=== PATIENT | female | born 1940 | race Two or more races ===

== ENCOUNTER 2016-10-08 19:20 | Emergency (ER) | payer OTHER ==
[2016-10-08 19:37] VITALS: BMI 20.7
--- NOTE | 2016-10-08 20:08 | PDOC ---
History of Present Illness - History of Present Illness Initial Comments: 10/08/16 22:58 Patient is a 76 year old female, accompanied by daughter, with significant medical hx of dementia, HTN, HLD, seizures, dementia and hypothyroidism who is presenting to the ED with left shoulder pain for one hour. The patient was at rest when her pain began; she denies any recent trauma or falls. Her pain is localized to the deltoid area with no radiation down the left arm, chest, to the back or neck. The patient reports her pain worsens with movement and there is mild pain while at rest. She did not take any medication for pain. The patient also endorses a mild gradual onset headache. Denies any shortness of breath, chest pain, back pain, neck pain, dizziness, nausea, vomiting, diarrhea, fever or chills, numbness tingling, weakness. Surgical Hx: thyroidectomy, D&C hysterectomy PMD: Stephen Wylie MD <Alayna Sepulveda - Last Filed: 10/08/16 22:58> <Joo Mina - Last Filed: 10/09/16 02:01> - General Chief Complaint: Edema Stated Complaint: RT HAND LUMP/ABCESS Time Seen by Provider: 10/08/16 19:44 Past History <Alayna Sepulveda - Last Filed: 10/08/16 22:58> - Past Medical History Anemia: Yes Asthma: No Cancer: No Cardiac Disorders: No CVA: No COPD: No CHF: No Dementia: Yes Diabetes: No GI Disorders: Yes (reflux) Disorders: No HTN: Yes Hypercholesterolemia: Yes Liver Disease: No Psychiatric Problems: Yes (depression) Seizures: Yes (epilepsy, last in december) Thyroid Disease: Yes (HYPOTHYROID) - Surgical History Abdominal Surgery: No Appendectomy: No Cardiac Surgery: No Cholecystectomy: No Lung Surgery: No Neurologic Surgery: No Orthopedic Surgery: No - Reproductive History Cervical CA: No Dysfunctional Uterine Bleeding: No Ectopic : No Endometrial CA: No Polycystic Ovaries: No Tubal Ligation: No - Immunization History Immunization Up to Date: Yes - Psycho/Social/Smoking Cessation Hx Anxiety: Yes Suicidal Ideation: No Smoking Status: No Smoking History: Never smoked Have you smoked in the past 12 months: No Number of Cigarettes Smoked Daily: 0 Hx Alcohol Use: No Drug/Substance Use Hx: No Substance Use Type: None Hx Substance Use Treatment: No <Joo Mina - Last Filed: 10/09/16 02:01> - Past Medical History Allergies/Adverse Reactions: Allergies Allergy/AdvReac Type Severity Reaction Status Date / Time hydromorphone HCl Allergy Mild Itching Verified 10/08/16 19:33 [From Dilaudid] Home Medications: Ambulatory Orders Alprazolam [Xanax] 0.25 mg PO DAILY 10/09/16 Amlodipine Besylate/Benazepril [Lotrel 5-10 mg Capsule] 1 each PO DAILY Atorvastatin Calcium 20 mg PO DAILY 10/09/16 Donepezil HCl [Aricept -] 5 mg PO DAILY 10/09/16 Gabapentin [Neurontin] 100 mg PO TID 10/09/16 Levetiracetam [Keppra -] 750 mg PO BID 10/09/16 Levothyroxine Sodium [Unithroid] 50 mcg PO DAILY 10/09/16 Meloxicam [Mobic] 15 mg PO DAILY 10/09/16 Phenytoin 50 mg PO DAILY 10/09/16 Review of Systems - Review of Systems Comments:: 10/08/16 22:59 CONSTITUTIONAL: No reported: Fever, Chills, Diaphoresis, Generalized Weakness, Malaise, Loss of Appetite HEENT: No reported: Rhinorrhea, Nasal Congestion, Throat Pain, Throat Swelling, Difficulty Swallowing, Mouth Swelling, Ear Pain, Eye Pain, Visual Changes CARDIOVASCULAR: No reported: Chest Pain, Syncope, Palpitations, Irregular Heart Rate, Lightheadedness, Peripheral Edema RESPIRATORY: No reported: Cough, Shortness of Breath, SOB with Exertion, Orthopnea, Wheezing , Stridor, Hemoptysis GASTROINTESTINAL: No reported: Abdominal pain, Abdominal Distension, Nausea, Vomiting, Diarrhea, Constipation, Melena, Hematochezia GENITOURINARY: No reported: Dysuria, Frequency, Urgency, Hesitancy, Flank Pain, Genital Pain MUSCULOSKELETAL: Reported: Left Shoulder Pain No reported: Myalgia, Arthralgia, Joint Swelling, Back pain, Neck Pain SKIN: No reported: Rash, Itching, Pallor HEMEATOLOGIC/IMMUNOLOGIC: No reported: Easy Bleeding, Easy Bruising, Lymphadenopathy, Frequent infections ENDOCRINE: No reported: Unexplained Weight Gain, Unexplained Weight Loss, Heat Intolerance , Cold Intolerance NEUROLOGIC: No reported: Headache, Focal Weakness, Paresthesias, Vertigo, Lightheadedness, Unsteady Gait, Seizure, Mental Status Changes, Incontinence PSYCHIATRIC: No reported: Anxiety, Depression <Alayna Sepulveda - Last Filed: 10/08/16 22:58> *Physical Exam - Vital Signs Last Vital Signs Temp Pulse Resp BP Pulse Ox 98.0 F 50 L 16 137/57 100 10/08/16 22:14 10/08/16 22:14 10/08/16 22:14 10/08/16 22:14 10/08/16 22:14 - Physical Exam Comments: 10/08/16 22:59 GENERAL: The patient is awake, alert, Nontoxic - in no acute distress. HEAD: Normocephalic, atraumatic. EYES: extraocular movements intact, sclera anicteric, conjunctiva clear. ENT: Normal voice, Moist mucous membranes. NECK: Normal range of motion, supple LUNGS: Breath sounds equal, clear to auscultation bilaterally. No wheezes, no rhonchi, no rales. HEART: Regular rate and rhythm, normal S1 and S2 without murmur, rub or gallop. ABDOMEN: Soft, nontender, normoactive bowel sounds. No guarding, no rebound. . No CVA tenderness EXTREMITIES:Normal range of motion of upper extremities at shoulder/elbow/wrist bilaterally, small hematoma noted on volar aspect of L hand without tenderness, mild diffuse tenderness of L shoulder. radial pulses symmetric bilaterally NEUROLOGICAL: No facial assymetry, Normal speech, moving upper and lower extemiteies spontaneously and symmetrically. PSYCH: Normal mood, normal affect. SKIN: Warm, Dry, normal turgor <Alayna Sepulveda - Last Filed: 10/08/16 22:58> - Vital Signs Last Vital Signs Temp Pulse Resp BP Pulse Ox 98 F 56 L 18 147/67 99 10/08/16 19:30 10/08/16 19:30 10/08/16 19:30 10/08/16 19:30 10/08/16 19:30 <Joo Mina - Last Filed: 10/09/16 02:01> Heart Score/ECG Review - ECG Impressions Comment:: 10/09/16 01:18 Twelve-lead EKG was performed and reviewed by me. There is normal sinus rhythm with a rate of 53. The axis is normal. The intervals are normal. There is normal R wave progression T wave inversion in aVL <LeopoldoJoo mora - Last Filed: 10/09/16 02:01> ED Treatment Course - LABORATORY CBC & Chemistry Diagram: 10/08/16 21:38 10/08/16 21:38 - ADDITIONAL ORDERS Additional order review: Laboratory Results 10/08/16 21:38 Sodium Cancelled Potassium Cancelled Chloride Cancelled Carbon Dioxide Cancelled Anion Gap Cancelled BUN Cancelled Creatinine Cancelled Creat Clearance w eGFR Cancelled Random Glucose Cancelled Calcium Cancelled Total Bilirubin Cancelled AST Cancelled ALT Cancelled Alkaline Phosphatase Cancelled Creatine Kinase Cancelled Troponin I Cancelled Total Protein Cancelled Albumin Cancelled 10/08/16 21:38 RBC Cancelled MCV Cancelled MCHC Cancelled RDW Cancelled MPV Cancelled Neutrophils % Cancelled Lymphocytes % Cancelled Monocytes % Cancelled Eosinophils % Cancelled Basophils % Cancelled - Medications Given in the ED: ED Medications Discontinued Medications Generic Name Dose Route Start Last Admin Trade Name Rhonda PRN Reason Stop Dose Admin Acetaminophen 650 mg 10/08/16 20:27 10/08/16 20:59 Tylenol - PO 10/08/16 20:28 650 mg ONCE ONE Administration <Alayna Sepulveda - Last Filed: 10/08/16 22:58> - LABORATORY CBC & Chemistry Diagram: 10/08/16 23:04 10/08/16 23:04 - RADIOLOGY Radiology Studies Ordered: Category Date Time Status CHEST PA & LAT [RAD] Stat Radiology 10/08/16 20:01 Ordered SHOULDER-LEFT [RAD] Stat Radiology 10/08/16 20:01 Ordered <LeopoldoJoo - Last Filed: 10/09/16 02:01> Medical Decision Making - Medical Decision Making 10/08/16 20:32 76y F hx of HL, seizures, dementia, htn, hl, hypothyroidism, presents with atraumatic l shoulder pain that started about 1 hr prior to presentation. no associated cp, sob, harvey, back pain. on exam the pt appears well, in no distress , no focal tenderness on her arm, no limitations in ROM. differential includes msk pain, malignancy, atypical acs will ck labs, ekg, cxr/shoulder xray will give pt tylenol will reassess A portion of this note was documented by scribe services under my direction. I have reviewed the details of the note, within reason, and agree with the documentation with the following case summary and management plan written by me 10/09/16 01:16 xray/shoulder films neg for acute process +degenerative changes on her shoulder xrays labs negative, trop neg x 1 pt feeling improved after toradol will obtain 2nd trop at 6 hrs if neg will dc with pmd fu 10/09/16 01:50 trop neg pt asymptomatic will dc wiht pmd fu return precautions were discussed I discussed the physical exam findings, ancillary test results and final diagnoses with the patient. I answered all of the patient's questions. The patient was satisfied with the care received and felt comfortable with the discharge plan and treatment plan. The patient will call their primary care physician within 24 hours to arrange follow-up and will return to the Emergency Department with any new, persistent or worsening symptoms. <Joo Mina - Last Filed: 10/09/16 02:01> *DC/Admit/Observation/Transfer - Attestations Scribe Attestion: 10/08/16 22:59 Documentation prepared by Alayna Sepulveda, acting as medical aides teacher for Joo Mina MD. <Alayna Sepulveda - Last Filed: 10/08/16 22:58> - Discharge Dispostion Admit: No <Joo Mina - Last Filed: 10/09/16 02:01> Diagnosis at time of Disposition: Spontaneous hematoma of hand Shoulder pain Qualifiers: Laterality: left Chronicity: unspecified Qualified Code(s): M25.512 - Pain in left shoulder - Discharge Dispostion Disposition: HOME Condition at time of disposition: Improved - Referrals Referrals: Stephen Wylie MD [Primary Care Provider] - - Patient Instructions Printed Discharge Instructions: DI for Shoulder Pain Additional Instructions: Vuelva al departamento de emergencia inmediatamente con CUALQUIER nuevo, persistente o empeorando los sntomas. [place] el tylenol para el dolor Debe llamar y seguir con deal mdico maana para christal evaluacin ms detallada de william sntomas. Los resultados fueron discutidos con usted. Por favor, asegrese de que deal mdico revise los resultados de deal evaluacin de emergencia. Si usted tuvo alguna radiografa vanna deal visita, fue ledo preliminarmente por m mismo, un Radilogo lo revisar y si hay algn hallazgo adicional le llamaremos. Return to the emergency department immediately with ANY new, persistent or worsening symptoms. Take tylenol for pain You MUST call and follow up with your doctor tomorrow for further evaluation of your symptoms. Results were discussed with you. Please make sure your doctor reviews the results of your emergency evaluation. If you had any xrays during your visit, it was read preliminarily by myself, a Radiologist will review it and if there are any additional findings we will call you. Print Language: ECUADOREAN
[2016-10-08] MEDS ORDERED: ACETAMINOPHEN 325 MG TABLET (FP) PO ONE (20:27)
[2016-10-08] MEDS ORDERED: ACETAMINOPHEN 325 MG TABLET (FP) ONE (20:55)
[2016-10-08 23:12] LABS: BASOPHIL 0.8 % (0-2.0); EOSINOPHIL 3.1 % (0-4.5); MCH 34.9 pg (25.7-33.7); MCHC 34.1 g/dl (32.0-36.0); MEAN CELL VOLUME 102.3 fl (80-96); NEUTROPHILS 43.4 % (42.8-82.8); PLATELET COUNT 192 K/MM3 (134-434); WHITE BLOOD COUNT 5.7 K/mm3 (4.0-10.0)
[2016-10-08 23:34] LABS: ALBUMIN 3.3 g/dl (3.4-5.0); BILIRUBIN,TOTAL 0.2 mg/dL (0.2-1.0); CALCIUM 8.1 mg/dL (8.5-10.1); COCKROFT - GAULT 32.3935; CREATININE 1.2 mg/dL (0.55-1.02); TOT PROT 6.5 g/dl (6.4-8.2)
[2016-10-08 23:36] LABS: TROPONIN I 0.03 ng/ml (0.00-0.05)
[2016-10-09] MEDS ORDERED: KETOROLAC TROMETHAMINE 30 MG/1 ML VIAL IVPUSH ONE (00:05)
[2016-10-09] MEDS ORDERED: KETOROLAC TROMETHAMINE 15 MG/ML VIAL ONE (00:15)
[2016-10-09 01:41] LABS: TROPONIN I 0.04 ng/ml (0.00-0.05)
[2016-10-09 02:29] VITALS: BP 109/54; PULSE 54; TEMP 98.2
--- NOTE | 2016-10-09 17:13 | EKG ---
Test Reason : Blood Pressure : / mmHG Vent. Rate : 053 BPM Atrial Rate : 053 BPM P-R Int : 202 ms QRS Dur : 096 ms QT Int : 458 ms P-R-T Axes : 071 -16 074 degrees QTc Int : 429 ms SINUS BRADYCARDIA OTHERWISE NORMAL ECG WHEN COMPARED WITH ECG OF 30-SEP-2015 18:18, CRITERIA FOR SEPTAL INFARCT ARE NO LONGER PRESENT Confirmed by ARIANNA ARTIS MD ([id number]) on 10/09/2016 5:13:13 PM Referred By: Confirmed By:ARIANNA ARTIS MD
== END 2016-10-09 02:23 | disposition home or self-care (01) ==
LOC: JER 19:20
PROC: 3E0233Z Introduction of Anti-inflammatory into Muscle, Percutaneous Approach (ICD-10-PCS; principal; 2016-10-08)
DX: M25.512 Pain in left shoulder (principal); S60.222A Contusion of left hand, initial encounter; E78.5 Hyperlipidemia, unspecified; E03.9 Hypothyroidism, unspecified; I10 Essential (primary) hypertension; F03.90 Unspecified dementia, unspecified severity, without behavioral disturbance, psychotic disturbance, mood disturbance, and anxiety
CPT/HCPCS: 36415; 71010-TC; 73030-TC-LT; 80053; 82550; 84484; 85025; 93005; 93010; 99283-25

== ENCOUNTER 2016-11-01 11:36 | Inpatient (IN) | payer OTHER ==
[2016-11-01] MEDS ORDERED: ACETAMINOPHEN 1000 MG/100 ML VIAL (NON FORMULARY) IVPB ONE (12:03)
[2016-11-01] MEDS ORDERED: ACETAMINOPHEN INJECTION 100 ML IVPB ONE (12:19)
--- NOTE | 2016-11-01 12:20 | PDOC ---
Attending Attestation - Resident Resident Name: Joshua Ríos - ED Attending Attestation I have performed the following: I have examined & evaluated the patient, The case was reviewed & discussed with the resident, I agree w/resident's findings & plan, Exceptions are as noted - HPI HPI: 11/02/16 09:03 76 yo F h/o HTN, HLD, dementia on aricept, seizure disorder on keppra and phenytoin and hypothyrodism brought in by EMS from home for altered mental status. Patient is confused, non-verbal and does not follow command which is a departure from her baseline (+) fevers No diarrhea No complaints of chest pain Pt has had no cough Pt has complained of no abdominal pain - Physicial Exam PE: 11/02/16 09:05 On examination Pt is awake Does not speak Attends the interviewer No nuchal rigidity RRR CTA No abd tenderness No cellulitis - Medical Decision Making 11/02/16 09:06 Labs demonstrate no UTI CXR no pneumonia Consult Neuro admit Heart Score/ECG Review #1 ECG reviewed & interpreted by me at: 12:45 11/01/16 12:45 Sinus rhythm rate of 89bpm 1st degree AV block, MI: 224ms, QRS:100ms, QTc:457ms No st elevations baseline artifact
[2016-11-01 12:22] LABS: VENOUS BLOOD GAS HCO3 21.9 meq/L (19-25); VENOUS PH 7.39 (7.32-7.42)
[2016-11-01 12:26] LABS: BASOPHIL 0.1 % (0-2.0); EOSINOPHIL 0.2 % (0-4.5); MCH 34.7 pg (25.7-33.7); MCHC 35.1 g/dl (32.0-36.0); MEAN CELL VOLUME 98.8 fl (80-96); MEAN PLT VOLUME 8.8 fl (7.5-11.1); NEUTROPHILS 91.3 % (42.8-82.8); PLATELET COUNT 243 K/MM3 (134-434); RDW 12.9 % (11.6-15.6); WHITE BLOOD COUNT 9.9 K/mm3 (4.0-10.0)
[2016-11-01 12:38] LABS: URINE APPEARANCE CLEAR; URINE BILIRUBIN NEGATIVE (NEGATIVE); URINE COLOR STRAW; URINE GLUCOSE (UA) NEGATIVE (NEGATIVE); URINE KETONE TRACE (NEGATIVE); URINE LEUK ESTERASE NEGATIVE (NEGATIVE); URINE NITRITE NEGATIVE (NEGATIVE); URINE UROBILINOGEN NEGATIVE E.U./dl (0.2-1.0)
--- NOTE | 2016-11-01 12:44 | PDOC ---
History of Present Illness - General Chief Complaint: Altered Mental Status Stated Complaint: PAIN Time Seen by Provider: 11/01/16 11:41 History Source: Family Exam Limitations: Dementia, Language Barrier - History of Present Illness Initial Comments: 76 yo F h/o HTN, HLD, dementia on aricept, seizure disorder on keppra 750mg BID , phenytoin 50mg daily and phenytoin extended 200mg daily and hypothyrodism brought in by EMS from home for altered mental status. Patient is confused, non- verbal and does not follow command at the moment. Per daughter at bedside, patient takes, eats and sleeps fine at baseline. At 2am, she c/o headache, took tyenolol and went back to sleep. She woke up at 7am looking confused and non- verbal with no apparent weakness in extremities. Family stated patient has rigor and fever but unsure of other complaints the patient's having. Past History - Past Medical History Allergies/Adverse Reactions: Allergies Allergy/AdvReac Type Severity Reaction Status Date / Time hydromorphone HCl Allergy Mild Itching Verified 11/01/16 11:45 [From Dilaudid] Home Medications: Ambulatory Orders Alprazolam [Xanax] 0.25 mg PO DAILY 10/09/16 Amlodipine Besylate/Benazepril [Lotrel 5-10 mg Capsule] 1 each PO DAILY Atorvastatin Calcium 20 mg PO DAILY 10/09/16 Donepezil HCl [Aricept -] 5 mg PO DAILY 10/09/16 Gabapentin [Neurontin] 100 mg PO TID 10/09/16 Levetiracetam [Keppra -] 750 mg PO BID 10/09/16 Levothyroxine Sodium [Unithroid] 50 mcg PO DAILY 10/09/16 Phenytoin 50 mg PO DAILY 10/09/16 Calcium Carbonate/Vitamin D3 [Calcium 600 + Vit D 200 Tablet] 2 each PO DAILY Meloxicam [Mobic (Nf) -] 15 mg PO DAILY 11/01/16 Phenytoin Sodium Extended [Phenytek] 200 mg PO DAILY 11/01/16 Valacyclovir HCl [Valtrex -] 500 mg PO DAILY 11/01/16 Anemia: Yes Asthma: No Cancer: No Cardiac Disorders: No CVA: No COPD: No CHF: No Dementia: Yes Diabetes: No GI Disorders: Yes (reflux) Disorders: No HTN: Yes Hypercholesterolemia: Yes Liver Disease: No Psychiatric Problems: Yes (depression, ANXIETY.) Seizures: Yes (epilepsy) Thyroid Disease: Yes (HYPOTHYROID) - Surgical History Abdominal Surgery: No Appendectomy: No Cardiac Surgery: No Cholecystectomy: No Lung Surgery: No Neurologic Surgery: No Orthopedic Surgery: No - Reproductive History Cervical CA: No Dysfunctional Uterine Bleeding: No Ectopic : No Endometrial CA: No Polycystic Ovaries: No Tubal Ligation: No - Immunization History Immunization Up to Date: Yes - Psycho/Social/Smoking Cessation Hx Anxiety: Yes Suicidal Ideation: No Smoking Status: No Smoking History: Never smoked Have you smoked in the past 12 months: No Number of Cigarettes Smoked Daily: 0 Hx Alcohol Use: No Drug/Substance Use Hx: No Substance Use Type: None Hx Substance Use Treatment: No Review of Systems - Review of Systems Able to Perform ROS?: No Is the patient limited Yemeni proficient: Yes *Physical Exam - Vital Signs Last Vital Signs Temp Pulse Resp BP Pulse Ox 101.6 F H 84 18 136/108 100 11/01/16 12:00 11/01/16 11:45 11/01/16 11:45 11/01/16 11:45 11/01/16 11:45 - Physical Exam General Appearance: Yes: Other (confused, non-verbal, does not follow command.) Neck: positive: Trachea midline, Normal Thyroid, Supple Respiratory/Chest: positive: Lungs Clear, Normal Breath Sounds Cardiovascular: positive: Regular Rhythm, Regular Rate, S1, S2. negative: Murmur Gastrointestinal/Abdominal: negative: Distended, Guarding, Rebound, Tenderness Extremity: negative: Pedal Edema, Swelling, Erythema Neurologic: positive: Confused, Disoriented. negative: Facial Droop ED Treatment Course - LABORATORY CBC & Chemistry Diagram: 11/01/16 12:10 11/01/16 12:10 - ADDITIONAL ORDERS Additional order review: Laboratory Results 11/01/16 12:09 VBG pH 7.39 POC VBG pCO2 37.1 L POC VBG pO2 40.1 Mixed VBG HCO3 21.9 - RADIOLOGY Radiology Studies Ordered: Category Date Time Status HEAD CT (STROKE) [CT] Stat CT Scan 11/01/16 12:26 Ordered - Medications Given in the ED: ED Medications Discontinued Medications Generic Name Dose Route Start Last Admin Trade Name Freq PRN Reason Stop Dose Admin Acetaminophen 1,000 mg 11/01/16 12:03 11/01/16 12:23 Ofirmev Injection - IVPB 11/01/16 12:04 1,000 mg ONCE ONE Administration Medical Decision Making - Medical Decision Making 11/01/16 12:44 76 yo F admitted to the ED for AMS. Will work up post-ictal vs. stroke. vs. UTI vs. sundowning 11/01/16 13:33 Patient is now frebile with no WBC. However, 1st trop is elevated and moderate hyponatremia (127). Will start d5w+1/2NS at 75cc/hr Case discussed with Dr. Lang. Will admit the patient under her service to Telemetry. 11/01/16 14:[address] Strauss (Neurology), will give patient 1g keppra IV (no PO due to confusion), MRI and EEG. *DC/Admit/Observation/Transfer Diagnosis at time of Disposition: Altered mental status Qualifiers: Altered mental status type: disorientation Qualified Code(s): R41.0 - Disorientation, unspecified - Discharge Dispostion Condition at time of disposition: Stable Admit: Yes - Referrals Referrals: Stephen Wylie MD [Primary Care Provider] -
[2016-11-01 12:46] LABS: ACTIVATED PTT 27.5 SECONDS (26.9-34.4)
[2016-11-01 12:59] LABS: URINE BLOOD 1+ (NEGATIVE); URINE PROTEIN 1+ (NEGATIVE)
[2016-11-01 13:00] LABS: ALBUMIN 3.8 g/dl (3.4-5.0); CALCIUM 8.2 mg/dL (8.5-10.1)
[2016-11-01 13:03] LABS: COCKROFT - GAULT 38.8705
[2016-11-01 13:06] LABS: URINE HYALINE CAST 3 /lpf; URINE MUCUS RARE; URINE RBC 7 /hpf (0-3)
[2016-11-01 13:12] LABS: BILIRUBIN,TOTAL 0.4 mg/dL (0.2-1.0); THYROID STIMULATING HORMONE 1.99 uIU/ml (0.358-3.74); TOT PROT 7.6 g/dl (6.4-8.2); TROPONIN I 0.26 ng/ml (0.00-0.05)
[2016-11-01] MEDS ORDERED: DEXTROSE 5%-0.45% SALINE 1,000 ML IV SCH (13:30)
--- NOTE | 2016-11-01 13:34 | HP ---
Admitting History and Physical - Primary Care Physician PCP: Stephen Wylie - Admission Chief Complaint: ALtered mental status History of Present Illness: 76 yrs old female brought in by daughter for altered mental status. Her baseline mental status is confused, dementia, follows commands, lives with daughter. She was her usual self till early this morning when she woke up at around 2 am with headache and took Tylenol- this morning she was lethargic, not following commands. Daughter denies any fever at home , coughing, SOB. But in ER she developed fever 101F Spoke with Resident and ER attending. Spoke with daughter at bedside. She awakens when called , but goes back to sleep. History Source: Family Member Limitations to Obtaining History: Dementia - Past Medical History ENAMEL SHADER: Yes: Dementia, Seizure, Other (depression) Cardiovascular: Yes: HTN, Hyperlipdemia - Smoking History Smoking history: Never smoked Have you smoked in the past 12 months: No Aproximately how many cigarettes per day: 0 - Alcohol/Substance Use Hx Alcohol Use: No Home Medications - Allergies Allergies/Adverse Reactions: Allergies Allergy/AdvReac Type Severity Reaction Status Date / Time hydromorphone HCl Allergy Mild Itching Verified 11/01/16 11:45 [From Dilaudid] - Home Medications Home Medications: Ambulatory Orders Alprazolam [Xanax] 0.25 mg PO DAILY 10/09/16 Amlodipine Besylate/Benazepril [Lotrel 5-10 mg Capsule] 1 each PO DAILY Atorvastatin Calcium 20 mg PO HS 10/09/16 Donepezil HCl [Aricept -] 5 mg PO DAILY 10/09/16 Gabapentin [Neurontin] 100 mg PO TID 10/09/16 Levetiracetam [Keppra -] 750 mg PO BID 10/09/16 Levothyroxine Sodium [Unithroid] 50 mcg PO DAILY 10/09/16 Phenytoin 50 mg PO DAILY 10/09/16 Calcium Carbonate/Vitamin D3 [Calcium 600 + Vit D 200 Tablet] 2 each PO DAILY Meloxicam [Mobic (Nf) -] 15 mg PO DAILY 11/01/16 Phenytoin Sodium Extended [Phenytek] 200 mg PO DAILY 11/01/16 Valacyclovir HCl [Valtrex -] 500 mg PO DAILY 11/01/16 Review of Systems Unable to obtain ROS, reason: lethargic Physical Examination Vital Signs: Vital Signs Temperature 101.6 F H 11/01/16 12:00 Pulse Rate 84 11/01/16 11:45 Respiratory Rate 18 11/01/16 11:45 Blood Pressure 136/108 11/01/16 11:45 O2 Sat by Pulse Oximetry (%) 100 11/01/16 11:45 Constitutional: Yes: No Distress Cardiovascular: Yes: Regular Rate and Rhythm Respiratory: Yes: CTA Bilaterally Gastrointestinal: Yes: Normal Bowel Sounds, Soft. No: Distention, Tenderness Edema: No Neurological: Yes: Lethargy Labs: CBC, BMP 11/01/16 12:10 11/01/16 12:10 Imaging - Results Chest X-ray: Image Reviewed (clear) Cat Scan: Report Reviewed (CT head- negative) EKG: Image Reviewed (sinus) Problem List - Problems (1) Altered mental status Code(s): R41.82 - ALTERED MENTAL STATUS, UNSPECIFIED Qualifiers: Altered mental status type: disorientation Qualified Code(s): R41.0 - Disorientation, unspecified (2) Dementia Code(s): F03.90 - UNSPECIFIED DEMENTIA WITHOUT BEHAVIORAL DISTURBANCE (3) Hx of seizure disorder Code(s): Z86.69 - PERSONAL HISTORY OF DIS OF THE NERVOUS SYS AND SENSE ORGANS (4) HTN (hypertension) Code(s): I10 - ESSENTIAL (PRIMARY) HYPERTENSION (5) Fever Code(s): R50.9 - FEVER, UNSPECIFIED (6) Hyponatremia Code(s): E87.1 - HYPO-OSMOLALITY AND HYPONATREMIA Assessment/Plan PLAN Fever--No source of fever so far will give her stat dose of Vanco, start antibiotics IV fluids Altered Mentation-- Neurology eval continue with seizure meds levels are normal CT head negative Elevated troponins-- admit to Telemetry Elevated troponins may be due to sepsis serial cardiac enzymes Cardiology eval check Echo Hyponatremia -- ?due to Dilantin -- appears dehydrated, will give gentle fluids -- check TSH DVT prophylaxis-- Heparin sc Time spent 30 min
[2016-11-01] MEDS ORDERED: SODIUM CHLORIDE 500 ML IV ONE (14:20)
[2016-11-01] MEDS ORDERED: levETIRAcetam 500 MG/5 ML INJECTION VIAL IVPB ONE ×2 (14:37→17:11)
--- NOTE | 2016-11-01 16:02 | CON.NEURO ---
Consult Consult Specialty:: Neurology Referred by:: Dr Melinda Buck Reason for Consultation:: mental status change - History of Present Illness Chief Complaint: ams for one day History of Present Illness: 76 year old female history of dementia, and epilepsy on keppra 750 mg po bid and dilantin 250 mg qhs . She also have history of htn, hlp and hypothyroidism. She owke up this am confused and on verbal and not able to follow command. as baseline she is able do not have any behavior difficulty . There was no weakness on one side or anothr side of the body No seizures activity witness, no high grade fever or trauma. 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: Dementia, Seizure, Other (depression) Cardio/Vascular: Yes: HTN, Hyperlipdemia - Alcohol/Substance Use Hx Alcohol Use: No - Smoking History Smoking history: Never smoked Have you smoked in the past 12 months: No Aproximately how many cigarettes per day: 0 Home Medications - Allergies Allergies/Adverse Reactions: Allergies Allergy/AdvReac Type Severity Reaction Status Date / Time hydromorphone HCl Allergy Mild Itching Verified 11/01/16 11:45 [From Dilaudid] - Home Medications Home Medications: Ambulatory Orders Alprazolam [Xanax] 0.25 mg PO DAILY 10/09/16 Amlodipine Besylate/Benazepril [Lotrel 5-10 mg Capsule] 1 each PO DAILY Atorvastatin Calcium 20 mg PO HS 10/09/16 Donepezil HCl [Aricept -] 5 mg PO DAILY 10/09/16 Gabapentin [Neurontin] 100 mg PO TID 10/09/16 Levetiracetam [Keppra -] 750 mg PO BID 10/09/16 Levothyroxine Sodium [Unithroid] 50 mcg PO DAILY 10/09/16 Phenytoin 50 mg PO DAILY 10/09/16 Calcium Carbonate/Vitamin D3 [Calcium 600 + Vit D 200 Tablet] 2 each PO DAILY Meloxicam [Mobic (Nf) -] 15 mg PO DAILY 11/01/16 Phenytoin Sodium Extended [Phenytek] 200 mg PO DAILY 11/01/16 Valacyclovir HCl [Valtrex -] 500 mg PO DAILY 11/01/16 Physical Exam-Neuro Vital Signs: Vital Signs Temperature 101.6 F H 11/01/16 12:00 Pulse Rate 84 11/01/16 11:45 Respiratory Rate 18 11/01/16 11:45 Blood Pressure 136/108 11/01/16 11:45 O2 Sat by Pulse Oximetry (%) 100 11/01/16 11:45 Labs: CBC, BMP 11/01/16 12:10 11/01/16 12:10 INR, PTT INR 1.00 (0.82-1.09) 11/01/16 12:10 - Neuro Exam Level Of Consciousness: Yes: Obtunded Gag: Present Babinski: Absent Motor Strength: 5/5: Right Arm, Left Leg Gait: Other (Moving all extremity) NIH Stroke Scale - Total Score NIH Stroke Scale Score: 0 Problem List - Problems (1) Altered mental status Code(s): R41.82 - ALTERED MENTAL STATUS, UNSPECIFIED Qualifiers: Altered mental status type: disorientation Qualified Code(s): R41.0 - Disorientation, unspecified (2) Dementia Code(s): F03.90 - UNSPECIFIED DEMENTIA WITHOUT BEHAVIORAL DISTURBANCE Assessment/Plan 76 year old female history of dementia and epilepsy on keppra and dilantin. as per daughter she takes her medication properly. She found to have confused and non verbal. initial ct scan was normal. she has no fever , and no neck stiffness. dilantin level is therapeutic Neuro exam- Patient is obtunded and opens eye spontaneously and track object no neck stiffness, pupils are reactive no facial asymmetry moving all extremity MOST LIKELY seizures with post ictal confusion vs stroke. Less likley to be meningitis or status epilepticus . Plan 1. mri of brain 2. cardiac monitoring as per primary to tele 3. give extra keppra 1000 mg once and conintue home dose of keppra 4. eeg supportive care
[2016-11-01] MEDS ORDERED: IBUPROFEN 800 MG/8 ML IJ IVPB ONE ×2 (16:22→17:11)
[2016-11-01 18:13] VITALS: BMI 27.3
[2016-11-01] MEDS ORDERED: VANCOMYCIN 1 GRAM (PRE-DOCKED) 250 ML IVPB ONE ×2 (20:30→22:15)
[2016-11-01] MEDS: DEXTROSE 5%-NORMAL SALINE 1,000 ML IV SCH (21:00)
[2016-11-01] MEDS ORDERED: PATIENT'S OWN MEDICATION (NON-FORMULARY) (Levetiracetam [Keppra -] 750 MG) PO SCH (22:00)
[2016-11-01] MEDS: CEFTRIAXONE 50 ML IVPB SCH (22:21)
[2016-11-01] MEDS: HEPARIN NA (PORCINE) 5,000 UNITS/ML 1ML VIAL SQ SCH (22:22)
[2016-11-01] MEDS: GABAPENTIN 100 MG CAPSULE (FP) PO SCH (22:23)
[2016-11-01] MEDS: ATORVASTATIN CA 20 MG TABLET (FP) PO SCH (22:23)
[2016-11-01] MEDS: levETIRAcetam 250 MG TABLET (FP) PO SCH (22:23)
--- NOTE | 2016-11-01 22:54 | EKG ---
Test Reason : Blood Pressure : / mmHG Vent. Rate : 089 BPM Atrial Rate : 089 BPM P-R Int : 224 ms QRS Dur : 100 ms QT Int : 376 ms P-R-T Axes : 072 -20 077 degrees QTc Int : 457 ms SINUS RHYTHM WITH 1ST DEGREE A-V BLOCK OTHERWISE NORMAL ECG WHEN COMPARED WITH ECG OF 08-OCT-2016 23:57, VENT. RATE HAS INCREASED BY 36 BPM Confirmed by TORREY PAULSON MD ([id number]) on 11/01/2016 10:53:26 PM Referred By: Confirmed By:TORREY PAULSON MD
[2016-11-01 23:08] LABS: TROPONIN I 0.26 ng/ml (0.00-0.05)
[2016-11-02] MEDS: LEVOTHYROXINE NA 50 MCG TABLET (FP) PO SCH (06:51)
[2016-11-02] MEDS: GABAPENTIN 100 MG CAPSULE (FP) PO SCH ×3 (06:51→21:42)
[2016-11-02 08:37] LABS: BASOPHIL 0.3 % (0-2.0); EOSINOPHIL 0.1 % (0-4.5); MCHC 35.2 g/dl (32.0-36.0); MEAN CELL VOLUME 99.5 fl (80-96); MEAN PLT VOLUME 8.5 fl (7.5-11.1); NEUTROPHILS 72.5 % (42.8-82.8); PLATELET COUNT 181 K/MM3 (134-434); RDW 12.5 % (11.6-15.6); WHITE BLOOD COUNT 8.4 K/mm3 (4.0-10.0)
[2016-11-02 08:47] LABS: ALBUMIN 3.3 g/dl (3.4-5.0); BILIRUBIN,TOTAL 0.4 mg/dL (0.2-1.0); CALCIUM 7.8 mg/dL (8.5-10.1); COCKROFT - GAULT 49.4785; THYROID STIMULATING HORMONE 1.05 uIU/ml (0.358-3.74); TOT PROT 6.6 g/dl (6.4-8.2); TROPONIN I 0.15 ng/ml (0.00-0.05)
--- NOTE | 2016-11-02 09:52 | CON.CARD ---
Consult Consult Specialty:: Cardiology Referred by:: Dr. Lang Reason for Consultation:: + Cardiac Biomarkers - History of Present Illness Chief Complaint: Altered Mental Status and Fever History of Present Illness: 76F w/ PMH Seizure disorder, dementia, HTN, HL and hypothyroidism brought to ER with change in mental status. Found to be febrile, cultured. Evaluated by Neurology- possible breakthrough seizure considered as possible. Ms. Norris cannot provide history due to her baseline dementia. The history is obtained primarily from chart. We were called to evaluate due to mild elevation in cardiac troponin with normal CPK. ECG shows NSR at 89bpm, 1st degree AV block with a nonspecific IVCD. 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: Dementia, Seizure, Other (depression) Cardio/Vascular: Yes: HTN, Hyperlipdemia ...: No - Alcohol/Substance Use Hx Alcohol Use: No - Smoking History Smoking history: Never smoked Have you smoked in the past 12 months: No Aproximately how many cigarettes per day: 0 - Social History Occupation: could not obtain social hx due to dementia Home Medications - Allergies Allergies/Adverse Reactions: Allergies Allergy/AdvReac Type Severity Reaction Status Date / Time hydromorphone HCl Allergy Mild Itching Verified 11/01/16 11:45 [From Dilaudid] - Home Medications Home Medications: Ambulatory Orders Alprazolam [Xanax] 0.25 mg PO DAILY 10/09/16 Amlodipine Besylate/Benazepril [Lotrel 5-10 mg Capsule] 1 each PO DAILY Atorvastatin Calcium 20 mg PO HS 10/09/16 Donepezil HCl [Aricept -] 5 mg PO DAILY 10/09/16 Gabapentin [Neurontin] 100 mg PO TID 10/09/16 Levetiracetam [Keppra -] 750 mg PO BID 10/09/16 Levothyroxine Sodium [Unithroid] 50 mcg PO DAILY 10/09/16 Phenytoin 50 mg PO DAILY 10/09/16 Calcium Carbonate/Vitamin D3 [Calcium 600 + Vit D 200 Tablet] 2 each PO DAILY Meloxicam [Mobic (Nf) -] 15 mg PO DAILY 11/01/16 Phenytoin Sodium Extended [Phenytek] 200 mg PO DAILY 11/01/16 Valacyclovir HCl [Valtrex -] 500 mg PO DAILY 11/01/16 Review of Systems Findings/Remarks: see HPI and ER records - Review of Systems Constitutional: reports: Weakness Neurological: reports: Confusion, Weakness - Risk Factors Known Risk Factors: Yes: Hypercholesterolemia, Hypertension Vital Signs: Vital Signs Temperature 99.6 F 11/02/16 06:51 Pulse Rate 60 11/02/16 06:51 Respiratory Rate 20 11/02/16 06:51 Blood Pressure 125/52 11/02/16 06:51 O2 Sat by Pulse Oximetry (%) 97 11/01/16 21:00 Constitutional: Yes: No Distress Eyes: Yes: Conjunctiva Clear Respiratory: Yes: Regular, CTA Bilaterally Gastrointestinal: Yes: Soft (non-tender, no rebound or guarding.) Cardiovascular: Yes: Regular Rate and Rhythm JVD: No Carotid Bruit: No PMI: Non-Displaced Heart Sounds: Yes: S1, S2 (RRR, no M/R/G) Edema: No Neurological: Yes: Confusion - Other Data Labs, Other Data: CBC, BMP 11/02/16 05:50 11/02/16 05:50 INR, PTT INR 1.00 (0.82-1.09) 11/01/16 12:10 Troponin, BNP 11/01/16 11/01/16 11/02/16 18:13 20:30 05:50 Troponin I Cancelled 0.26 H 0.15 H 11/02/16 05:50 Troponin I Cancelled Troponin, BNP 11/01/16 11/01/16 11/02/16 18:13 20:30 05:50 Troponin I Cancelled 0.26 H 0.15 H 11/02/16 05:50 Troponin I Cancelled ECG reviewed: NSR 89bpm, first degree AV block, nonspecific IVCD Echo: Pending Imaging - Results Chest X-ray: Report Reviewed Cat Scan: Report Reviewed EKG: Image Reviewed Problem List - Problems (1) Elevated troponin I level Assessment/Plan: -Do not suspect ACS. -Mild, non-zero elevation in TnI with overall normal CPK is likely due to infection/SIRS or seizure in this case -Check echo for LV function, RV function and assessment of RVSP. -Can give low dose Aspirin if no contraindications. Code(s): R74.8 - ABNORMAL LEVELS OF OTHER SERUM ENZYMES (2) Altered mental status Assessment/Plan: -suspect change from baseline mentation is probably due to infection or seizure or both. -Plan as per Neuro and PMD -TSH is WNL (h/o hypothyroidism). -Head CT with no acute pathology Code(s): R41.82 - ALTERED MENTAL STATUS, UNSPECIFIED Qualifiers: Altered mental status type: unspecified Qualified Code(s): R41.82 - Altered mental status, unspecified (3) Fever Assessment/Plan: -cultures pending -work up as per PMD. Code(s): R50.9 - FEVER, UNSPECIFIED Qualifiers: Fever type: unspecified Qualified Code(s): R50.9 - Fever, unspecified
[2016-11-02] MEDS ORDERED: PHENYTOIN SODIUM 200 MG PO SCH (10:00)
[2016-11-02] MEDS ORDERED: PATIENT'S OWN MEDICATION (NON-FORMULARY) (Amlodipine Besylate/Benazepril [Lotrel 5-10 Mg C PO SCH (10:00)
--- NOTE | 2016-11-02 10:27 | PN ---
Progress Note, Physician Chief Complaint: awake appears to be at baseline now She is not sleepy like yesterday wants to eat ambulates to the bathroom spoke with nurse - Current Medication List Current Medications: Active Medications Acetaminophen (Tylenol -) 650 mg PO Q4H PRN PRN Reason: FEVER OR PAIN Amlodipine Besylate (Norvasc -) 5 mg PO DAILY [facility] Atorvastatin Calcium (Lipitor -) 20 mg PO HS [facility] Last Admin: 11/01/16 22:23 Dose: 20 mg Donepezil HCl (Aricept -) 5 mg PO DAILY [facility] Gabapentin (Neurontin -) 100 mg PO TID [facility] Last Admin: 11/02/16 06:51 Dose: 100 mg Heparin Sodium (Porcine) (Heparin -) 5,000 unit SQ BID [facility] Last Admin: 11/01/16 22:22 Dose: 5,000 unit Ceftriaxone Sodium (Rocephin 1gm Ivpb (Pre-Docked)) 50 mls @ 100 mls/hr IVPB DAILY [facility] Last Admin: 11/01/16 22:21 Dose: 100 mls/hr Dextrose/Sodium Chloride (D5-Ns -) 1,000 mls @ 75 mls/hr IV ASDIR [facility] Last Admin: 11/01/16 21:00 Dose: 75 mls/hr Levetiracetam (Keppra -) 750 mg PO BID [facility] Last Admin: 11/01/16 22:23 Dose: Not Given Levothyroxine Sodium (Synthroid -) 50 mcg PO ACBK [facility] Last Admin: 11/02/16 06:51 Dose: 50 mcg Lisinopril (Prinivil) 10 mg PO DAILY [facility] Phenytoin Sodium (Dilantin Chewable Tablet -) 50 mg PO DAILY [facility] Phenytoin Sodium (Dilantin -) 200 mg PO DAILY [facility] - Objective Vital Signs: Vital Signs Temperature 99.6 F 11/02/16 06:51 Pulse Rate 60 11/02/16 06:51 Respiratory Rate 20 11/02/16 06:51 Blood Pressure 125/52 11/02/16 06:51 O2 Sat by Pulse Oximetry (%) 97 11/01/16 21:00 Constitutional: Yes: No Distress Neck: Yes: Other (no neck rigidity) Cardiovascular: Yes: Regular Rate and Rhythm Respiratory: Yes: CTA Bilaterally Gastrointestinal: Yes: Normal Bowel Sounds, Soft. No: Distention, Tenderness Edema: No Psychiatric: Yes: Alert Labs: CBC, BMP 11/02/16 05:50 11/02/16 05:50 INR, PTT INR 1.00 (0.82-1.09) 11/01/16 12:10 Problem List - Problems (1) Altered mental status Code(s): R41.82 - ALTERED MENTAL STATUS, UNSPECIFIED Qualifiers: Altered mental status type: unspecified Qualified Code(s): R41.82 - Altered mental status, unspecified (2) Dementia Code(s): F03.90 - UNSPECIFIED DEMENTIA WITHOUT BEHAVIORAL DISTURBANCE (3) Hx of seizure disorder Code(s): Z86.69 - PERSONAL HISTORY OF DIS OF THE NERVOUS SYS AND SENSE ORGANS (4) HTN (hypertension) Code(s): I10 - ESSENTIAL (PRIMARY) HYPERTENSION (5) Fever Code(s): R50.9 - FEVER, UNSPECIFIED Qualifiers: Fever type: unspecified Qualified Code(s): R50.9 - Fever, unspecified (6) Hyponatremia Code(s): E87.1 - HYPO-OSMOLALITY AND HYPONATREMIA Assessment/Plan PLAN Fever--No source of fever so far will give her stat dose of Vanco, start antibiotics IV fluids cultures pending Altered Mentation-- Neurology eval appreciated continue with seizure meds ordered MRI brain levels are normal possibly pt was post ictal ? CT head negative Elevated troponins-- Telemetry Elevated troponins may be due to sepsis, Seizures -trending down Cardiology eval appreciated check Echo Hyponatremia -- ?due to Dilantin -- appears dehydrated, will give gentle fluids -- TSH normal DVT prophylaxis-- Heparin sc
[2016-11-02] MEDS: CEFTRIAXONE 50 ML IVPB SCH (10:46)
[2016-11-02] MEDS: LISINOPRIL 10 MG TABLET (FP) PO SCH (10:47)
[2016-11-02] MEDS: HEPARIN NA (PORCINE) 5,000 UNITS/ML 1ML VIAL SQ SCH ×2 (10:47→21:42)
[2016-11-02] MEDS: levETIRAcetam 250 MG TABLET (FP) PO SCH ×2 (10:47→21:42)
[2016-11-02] MEDS: amLODIPine BESYLATE 5 MG TABLET (FP) PO SCH (10:47)
[2016-11-02] MEDS: DONEPEZIL HCL 5 MG TABLET (FP) PO SCH (10:47)
[2016-11-02] MEDS: PHENYTOIN NA EXTENDED 100 MG CAPSULE (FP) PO SCH (10:48)
[2016-11-02] MEDS: PHENYTOIN 50 MG TAB.CHEW PO SCH (10:48)
[2016-11-02] MEDS: ACETAMINOPHEN 325 MG TABLET (FP) PO PRN ×2 (10:52→21:43)
--- NOTE | 2016-11-02 11:01 | CONSULT ---
Admitting History and Physical - Primary Care Physician PCP: Melinda Lang - Admission History of Present Illness: Per emr: "Chief Complaint: Altered Mental Status and Fever History of Present Illness: 76F w/ PMH Seizure disorder, dementia, HTN, HL and hypothyroidism brought to ER with change in mental status. Found to be febrile, cultured. Evaluated by Neurology- possible breakthrough seizure considered as possible." Thought to be back to baseline today, verbal, ambulatory. Laboratory Tests 11/01/16 11/02/16 12:10 05:50 WBC 9.9 D 8.4 Selected Entries 11/01/16 11/02/16 11/02/16 21:00 02:24 06:51 Temperature 100 F H 98.5 F 99.6 F This is my first consultation with this pt. Pt is verbal, tearful, c/o feeling "lonely" asking for her daughter. Dx of depression noted. She forgot that her daughter visited yesterday. 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, Other (depression) Cardiovascular: Yes: HTN, Hyperlipdemia ...: No - Advance Directives Advance Directives: Yes: Health Care Proxy - Smoking History Smoking history: Never smoked Have you smoked in the past 12 months: No Aproximately how many cigarettes per day: 0 - Alcohol/Substance Use Hx Alcohol Use: No - Social History Occupation: could not obtain social hx due to dementia History - Admission Reason For Visit: ALTERED MENTAL STATUS - Diagnostics X-ray: Report Reviewed CT Scan: Report Reviewed - General Mental Status: Alert and Oriented (to hospital), Awake and Alert, Able to Follow Commands, Forgetful Attention: Intact Ability to Follow Directions: Good Head/Neck Control: WFL - Hearing Hearing: Normal Hearing Aide: No Speech Evaluation - Communication Primary Language: LAO Communication: Yes: Within Normal Limits, Language Barrier - Speech Production Able to Make Needs Known: Yes: WNL Intelligibility: Yes: WNL - Speech Characteristics Voice Loudness: Normal Voice Pitch: Yes: Normal Voice Phonatory-based Quality: Yes: Normal Speech Pattern: Normal Speech Clarity: < 100% Nasal Resonance: Normal Rate of Speech: Intact - Language/Auditory Comprehension Follows: Yes: 1 Stage Simple Commands - Language/Verbal Expression Able to Respond to Simple Queries: Yes: WNL Able to Communicate Wants and Needs: Yes: WNL Functional Communication Status: Yes: WNL - Swallow Evaluation/Bedside Assessment Current Nutritional Intake: Regular, Thin Liquids Oral Secretions: Yes: WFL Dentition: Yes: Adequate, Dental Appliance Upper, Dental Appliance Lower Facial Symmetry at Rest: Symmetrical Facial Symmetry on Retraction: Symmetrical Facial Movement: Controlled Against Resistance Opening: Normal Against Resistance Closing: Normal Pucker Lips: Normal Smile: Normal Lingual Movement: Normal, Symmetric Lingual Speed of Movement: Normal Lingual Movement Strgth Against Opposition: Normal Lingual Movement Characteristics: Normal Velopharyngeal Movement: Normal Laryngeal Movement: Able to Palpate, Labored,delay initiation Rate of Intake: WFL Bolus Size: WFL Labial Seal: WFL Chewing: WFL Oral Prep Time: WFL A-P Transit: WFL Pocketing: None Timing of Swallow: Delayed Coughing/Throat Clear: Yes (responsive to 1st trial of bread) Recommendations - Speech Evaluation, Impression/Plan Impression: Verbal,tearful,forgetful. No dysarthria. Simple responses to questions.\\. Able to name, repeat.Delayed swallow onset. Cough responsive to 1st trial of bread with c/o "a little" difficulty swallowing. Good overt tolerance with thin liquids.CXR (-). Febrile. - Dysphagia Impressions/Plan Dysphagia Impressions: Mild Impairment, Risk of Aspiration, Ongoing Evaluation *Silent aspiration: cannot be R/O at bedside Dysphagia Treatment Plan: Chin Tuck/Down, Safe Rate, 1/2 tsp. at a time, Elevate HOB during feed, Other (assist with meals.) Recommendations: Modified Barium Swallow (if congestion,cough, throat clearing with po intake.) - Recommendations Diet Consistency: Regular (soft, easy to chew) Liquids: Thin Liquids
--- NOTE | 2016-11-02 13:03 | PN ---
[id number] seizure disorder dementia now awake and following commands quite tearful c/o temporal headache PE unremarkable no meningeal signs no rash no joint swelling cxray no infiltrate head ct no CVA check esr/crp f/u cultures for now ceftriaxone to continue ?viral Problem List - Problems (1) Fever Code(s): R50.9 - FEVER, UNSPECIFIED Qualifiers: Fever type: unspecified Qualified Code(s): R50.9 - Fever, unspecified (2) Altered mental status Code(s): R41.82 - ALTERED MENTAL STATUS, UNSPECIFIED Qualifiers: Altered mental status type: unspecified Qualified Code(s): R41.82 - Altered mental status, unspecified (3) Seizure Code(s): R56.9 - UNSPECIFIED CONVULSIONS (4) Dementia Code(s): F03.90 - UNSPECIFIED DEMENTIA WITHOUT BEHAVIORAL DISTURBANCE
--- NOTE | 2016-11-02 18:11 | CONS ---
INFECTIOUS DISEASE CONSULTATION DATE OF CONSULTATION: DATE OF DICTATION: 11/02/2016 REQUESTED BY: Melinda Lang MD DICTATED BY: Chelsea Conroy MD HISTORY OF PRESENT ILLNESS: This is a 76-year-old woman. She lives at home with her family. She has a history of mild dementia, seizure disorder. Has some baseline confusion, but is usually alert and following commands. She presented to the emergency room yesterday with confusion. The patient was not at her baseline mental status. She was not talking, and she was quite weak and looking confused. They brought her to the emergency room where she was noted to have fever of 101.6. There was really no history of any other complaints at home. She was complaining of a headache. PAST MEDICAL HISTORY: Her past medical history is notable for hypertension, hyperlipidemia, anemia, hypothyroidism, depression, dementia. SURGICAL HISTORY: Her surgical history is notable for thyroidectomy, D&C and hysterectomy. ALLERGIES: She is allergic to DILAUDID, which gives her itching. MEDICATIONS AN OUTPATIENT: Alprazolam, Lotrel, atorvastatin, donepezil, gabapentin, Keppra, Dilantin, calcium carbonate, meloxicam and Valtrex. . FAMILY HISTORY: Noncontributory. SOCIAL HISTORY: She lives with her family. REVIEW OF SYSTEMS: It was not possible to get a review of systems. She notes she has headaches. She denies all other complaints. The nurse reports she is eating very poorly. PHYSICAL EXAM: General: She is alert. She is following simple commands, but she is a poor historian. Vital signs: Her T-max was 102.1 overnight. Currently, her temperature is 99.4. Pulse is 55. Blood pressure is 127/58 with a respiratory rate of 22. HEENT exam: She is normocephalic. Her eyes are anicteric. She has no conjunctival hemorrhages. She has no thrush. Her neck is supple. She has no meningeal signs. Lungs: Clear to auscultation. Heart: Regular rate and rhythm. Abdomen: Soft, nontender. Extremities: Without edema. Skin: She has no skin breakdown. LABS: Notable for a white count on admission of 9.9, today is 8.4, hemoglobin 11.1. Platelets are 181. Urinalysis is negative, and her chemistries are notable for an alkaline phosphatase of 144 and elevated troponin. Chest x-ray is negative for infiltrate, and head CT has no acute changes. SUMMARY: In summary, this is an elderly woman admitted from home with fever and confusion. Clinically, has clearly improved in terms of mental status as she is quite awake and alert now and following commands. PLAN: 1. She was started on ceftriaxone, which I would continue for now, pending culture results. 2. Request to speak with the daughter when the daughter comes later today. CHELSEA CONROY M.D. [id number]
[2016-11-02] MEDS: ATORVASTATIN CA 20 MG TABLET (FP) PO SCH (21:42)
[2016-11-02] MEDS: DEXTROSE 5%-NORMAL SALINE 1,000 ML IV SCH (21:43)
--- NOTE | 2016-11-02 23:07 | PN ---
Progress Note (short form) - Note Progress Note: 76 year old female history of dementia, and epilepsy on keppra 750 mg po bid and dilantin 250 mg qhs . She also have history of htn, hlp and hypothyroidism. She woke up on november 01,confused and on verbal and not able to follow command. on november 01, she was confused, inital ct scan was normal and she was afebrile, dilantin level was therapeutic and Today she appears to be much better and she is following command though confused and moving all extremity. Neuro exam alert follow command , confused cn all intact moving all extremity reflex are generalized diminised ct scan unremarkable mri of brain and eeg is pending Assessment/Plan 76 year old female history of dementia and epilepsy on keppra and dilantin. it is possible she had seizure and now she is back to baseline and she recovered from post ictal state plan consider increasing dose of keppra to 1000 mg po bid after mri ruled out any stroke -- eeg pending continue current level of care P Problem List - Problems (1) Altered mental status Code(s): R41.82 - ALTERED MENTAL STATUS, UNSPECIFIED Qualifiers: Altered mental status type: unspecified Qualified Code(s): R41.82 - Altered mental status, unspecified (2) Dementia Code(s): F03.90 - UNSPECIFIED DEMENTIA WITHOUT BEHAVIORAL DISTURBANCE
--- NOTE | 2016-11-03 09:06 | PN ---
Progress Note, Physician Chief Complaint: sitting in chair, no distress TELE: NSR Echo: Aortic sclerosis, otherwise normal biV function - Current Medication List Current Medications: Active Medications Acetaminophen (Tylenol -) 650 mg PO Q4H PRN PRN Reason: FEVER OR PAIN Last Admin: 11/02/16 21:43 Dose: 650 mg Amlodipine Besylate (Norvasc -) 5 mg PO DAILY [facility] Last Admin: 11/02/16 10:47 Dose: 5 mg Atorvastatin Calcium (Lipitor -) 20 mg PO HS [facility] Last Admin: 11/02/16 21:42 Dose: 20 mg Donepezil HCl (Aricept -) 5 mg PO DAILY [facility] Last Admin: 11/02/16 10:47 Dose: 5 mg Gabapentin (Neurontin -) 100 mg PO TID [facility] Last Admin: 11/02/16 21:42 Dose: 100 mg Heparin Sodium (Porcine) (Heparin -) 5,000 unit SQ BID [facility] Last Admin: 11/02/16 21:42 Dose: 5,000 unit Ceftriaxone Sodium (Rocephin 1gm Ivpb (Pre-Docked)) 50 mls @ 100 mls/hr IVPB DAILY [facility] Last Admin: 11/02/16 10:46 Dose: 100 mls/hr Dextrose/Sodium Chloride (D5-Ns -) 1,000 mls @ 75 mls/hr IV ASDIR [facility] Last Admin: 11/02/16 21:43 Dose: 75 mls/hr Levetiracetam (Keppra -) 750 mg PO BID [facility] Last Admin: 11/02/16 21:42 Dose: 750 mg Levothyroxine Sodium (Synthroid -) 50 mcg PO ACBK [facility] Last Admin: 11/02/16 06:51 Dose: 50 mcg Lisinopril (Prinivil) 10 mg PO DAILY [facility] Last Admin: 11/02/16 10:47 Dose: 10 mg Phenytoin Sodium (Dilantin Chewable Tablet -) 50 mg PO DAILY [facility] Last Admin: 11/02/16 10:48 Dose: 50 mg Phenytoin Sodium (Dilantin -) 200 mg PO DAILY [facility] Last Admin: 11/02/16 10:48 Dose: 200 mg - Objective Vital Signs: Vital Signs Temperature 97.7 F 11/03/16 02:00 Pulse Rate 64 11/03/16 02:00 Respiratory Rate 20 11/03/16 02:00 Blood Pressure 140/46 11/03/16 02:00 O2 Sat by Pulse Oximetry (%) 97 11/02/16 21:00 Constitutional: Yes: Calm Cardiovascular: Yes: Regular Rate and Rhythm Respiratory: Yes: CTA Bilaterally Gastrointestinal: Yes: Soft Edema: No Labs: CBC, BMP 11/02/16 05:50 11/02/16 05:50 INR, PTT INR 1.00 (0.82-1.09) 11/01/16 12:10 - ....Imaging EKG: Image Reviewed Problem List - Problems (1) Elevated troponin I level Code(s): R74.8 - ABNORMAL LEVELS OF OTHER SERUM ENZYMES (2) Altered mental status Code(s): R41.82 - ALTERED MENTAL STATUS, UNSPECIFIED Qualifiers: Altered mental status type: unspecified Qualified Code(s): R41.82 - Altered mental status, unspecified (3) Fever Code(s): R50.9 - FEVER, UNSPECIFIED Qualifiers: Fever type: unspecified Qualified Code(s): R50.9 - Fever, unspecified Assessment/Plan Problem List - Problems (1) Elevated troponin I level Assessment/Plan: -Do not suspect ACS/PA -Mild, non-zero elevation in TnI with overall normal CPK is likely due to infection/SIRS or seizure in this case -Echo with normal LV function -Outpatient stress test can be considered. Code(s): R74.8 - ABNORMAL LEVELS OF OTHER SERUM ENZYMES (2) Altered mental status Assessment/Plan: -suspect change from baseline mentation is probably due to seizure, possible infection. -Plan as per Neuro and PMD -TSH is WNL (h/o hypothyroidism). -Head CT with no acute pathology Code(s): R41.82 - ALTERED MENTAL STATUS, UNSPECIFIED Qualifiers: Altered mental status type: unspecified Qualified Code(s): R41.82 - Altered mental status, unspecified (3) Fever Assessment/Plan: -cultures pending -work up as per PMD. Code(s): R50.9 - FEVER, UNSPECIFIED Qualifiers: Fever type: unspecified Qualified Code(s): R50.9 - Fever, unspecified
[2016-11-03] MEDS: levETIRAcetam 250 MG TABLET (FP) PO SCH ×2 (09:51→23:05)
[2016-11-03] MEDS: DONEPEZIL HCL 5 MG TABLET (FP) PO SCH (09:51)
[2016-11-03] MEDS: amLODIPine BESYLATE 5 MG TABLET (FP) PO SCH (09:51)
[2016-11-03] MEDS: CEFTRIAXONE 50 ML IVPB SCH (09:51)
[2016-11-03] MEDS: LISINOPRIL 10 MG TABLET (FP) PO SCH (09:51)
[2016-11-03] MEDS: PHENYTOIN 50 MG TAB.CHEW PO SCH (09:52)
[2016-11-03] MEDS: PHENYTOIN NA EXTENDED 100 MG CAPSULE (FP) PO SCH (09:52)
[2016-11-03] MEDS: HEPARIN NA (PORCINE) 5,000 UNITS/ML 1ML VIAL SQ SCH ×2 (09:53→23:10)
--- NOTE | 2016-11-03 10:40 | PN ---
Progress Note, Physician Chief Complaint: awake she was confused last night - pulling out iv lines wants to eat ambulates to the bathroom spoke with nurse - Current Medication List Current Medications: Active Medications Acetaminophen (Tylenol -) 650 mg PO Q4H PRN PRN Reason: FEVER OR PAIN Last Admin: 11/02/16 21:43 Dose: 650 mg Amlodipine Besylate (Norvasc -) 5 mg PO DAILY [facility] Last Admin: 11/03/16 09:51 Dose: 5 mg Atorvastatin Calcium (Lipitor -) 20 mg PO HS [facility] Last Admin: 11/02/16 21:42 Dose: 20 mg Donepezil HCl (Aricept -) 5 mg PO DAILY [facility] Last Admin: 11/03/16 09:51 Dose: 5 mg Gabapentin (Neurontin -) 100 mg PO TID [facility] Last Admin: 11/02/16 21:42 Dose: 100 mg Heparin Sodium (Porcine) (Heparin -) 5,000 unit SQ BID [facility] Last Admin: 11/03/16 09:53 Dose: 5,000 unit Ceftriaxone Sodium (Rocephin 1gm Ivpb (Pre-Docked)) 50 mls @ 100 mls/hr IVPB DAILY [facility] Last Admin: 11/03/16 09:51 Dose: 100 mls/hr Dextrose/Sodium Chloride (D5-Ns -) 1,000 mls @ 75 mls/hr IV ASDIR [facility] Last Admin: 11/02/16 21:43 Dose: 75 mls/hr Levetiracetam (Keppra -) 750 mg PO BID [facility] Last Admin: 11/03/16 09:51 Dose: 750 mg Levothyroxine Sodium (Synthroid -) 50 mcg PO ACBK [facility] Last Admin: 11/02/16 06:51 Dose: 50 mcg Lisinopril (Prinivil) 10 mg PO DAILY [facility] Last Admin: 11/03/16 09:51 Dose: 10 mg Phenytoin Sodium (Dilantin Chewable Tablet -) 50 mg PO DAILY [facility] Last Admin: 11/03/16 09:52 Dose: 50 mg Phenytoin Sodium (Dilantin -) 200 mg PO DAILY [facility] Last Admin: 11/03/16 09:52 Dose: 200 mg - Objective Vital Signs: Vital Signs Temperature 97.7 F 11/03/16 02:00 Pulse Rate 64 11/03/16 02:00 Respiratory Rate 20 11/03/16 02:00 Blood Pressure 140/46 11/03/16 02:00 O2 Sat by Pulse Oximetry (%) 97 11/02/16 21:00 Constitutional: Yes: No Distress Cardiovascular: Yes: Regular Rate and Rhythm Respiratory: Yes: CTA Bilaterally Gastrointestinal: Yes: Normal Bowel Sounds, Soft. No: Distention, Tenderness Edema: No Labs: CBC, BMP 11/02/16 05:50 11/02/16 05:50 INR, PTT INR 1.00 (0.82-1.09) 11/01/16 12:10 Problem List - Problems (1) Altered mental status Code(s): R41.82 - ALTERED MENTAL STATUS, UNSPECIFIED Qualifiers: Altered mental status type: unspecified Qualified Code(s): R41.82 - Altered mental status, unspecified (2) Dementia Code(s): F03.90 - UNSPECIFIED DEMENTIA WITHOUT BEHAVIORAL DISTURBANCE (3) Hx of seizure disorder Code(s): Z86.69 - PERSONAL HISTORY OF DIS OF THE NERVOUS SYS AND SENSE ORGANS (4) HTN (hypertension) Code(s): I10 - ESSENTIAL (PRIMARY) HYPERTENSION (5) Fever Code(s): R50.9 - FEVER, UNSPECIFIED Qualifiers: Fever type: unspecified Qualified Code(s): R50.9 - Fever, unspecified (6) Hyponatremia Code(s): E87.1 - HYPO-OSMOLALITY AND HYPONATREMIA Assessment/Plan PLAN Fever--No source of fever so far will give her stat dose of Vanco, start antibiotics IV fluids cultures negative ID eval noted ?viral Altered Mentation-- Neurology eval appreciated continue with seizure meds ordered MRI brain -- pending -- if pt not co-operatiove during exam, will do MRI as outpt--open MRI levels are normal possibly pt was post ictal ? CT head negative EEG pending -- need to get done today Elevated troponins-- Telemetry Elevated troponins may be due to sepsis, Seizures -trending down Cardiology eval appreciated Echo -- normal LV function ok to transfer to floor Hyponatremia -- ?due to Dilantin -- appears dehydrated, will give gentle fluids -- TSH normal DVT prophylaxis-- Heparin sc
[2016-11-03] MEDS: valACYclovir HCL 500 MG TABLET (FP) PO SCH (12:00)
--- NOTE | 2016-11-03 13:09 | PN ---
Progress Note, [employer] - Note Progress Note: Selected Entries 11/02/16 11/02/16 11/02/16 02:24 06:51 10:00 Breakfast Lunch Supper Temperature 98.5 F 99.6 F 99.4 F 11/02/16 11/02/16 11/02/16 12:42 14:54 17:00 Breakfast 75% Lunch 75% Supper Temperature 98.1 F 98.0 F 11/02/16 11/02/16 11/03/16 21:30 21:47 02:00 Breakfast Lunch Supper 50% Temperature 98.4 F 97.7 F 11/03/16 11/03/16 10:00 11:57 Breakfast 50% Lunch Supper Temperature 99.4 F Refusing most PO intake. I was able to encourage her to take some pureed sweet potatoes and supplements. REC: trial of puree, thin liquid,ensure, add rice/beans when available.
[2016-11-03] MEDS: GABAPENTIN 100 MG CAPSULE (FP) PO SCH ×2 (13:35→21:02)
--- NOTE | 2016-11-03 14:05 | PN ---
Progress Note (short form) - Note Progress Note: no headache no fevers daughter is with her says mom wont eat b/c she thinks we are poisoning her Vital Signs Period Temp Pulse Resp BP Sys/Pedroza Pulse Ox Last 24 Hr 97.7 F-99.4 F 59-82 20-60 96-145/46-75 97 cor-rrr lungs clear abd soft,nt ext no edema Laboratory Tests 11/03/16 11/03/16 05:40 05:40 ESR 20 C-Reactive Protein 1.5 H CBC, BMP 11/02/16 05:50 11/02/16 05:50 Microbiology 11/01/16 12:10 Blood - Peripheral Venous Blood Culture - Preliminary NO GROWTH OBTAINED AFTER 48 HOURS, INCUBATION TO CONTINUE FOR 3 DAYS. 11/01/16 12:10 Blood - Peripheral Venous Blood Culture - Preliminary NO GROWTH OBTAINED AFTER 48 HOURS, INCUBATION TO CONTINUE FOR 3 DAYS. 11/01/16 17:55 Nasopharyngeal Swab Respiratory Virus Panel - Preliminary 11/01/16 12:10 Urine - Urine Clean Catch Urine Culture - Final NO GROWTH OBTAINED 11/01/16 17:55 Nasopharyngeal Swab Influenza Types A,B Antigen ([place]) - Final 11/01/16 17:55 Nasopharyngeal Swab - Final a/p fevers- resolved- ?viral, d/c antiibotics, cultures are negative seizures disorder dementia observe off antibiotics Problem List - Problems (1) Fever Code(s): R50.9 - FEVER, UNSPECIFIED Qualifiers: Fever type: unspecified Qualified Code(s): R50.9 - Fever, unspecified (2) Altered mental status Code(s): R41.82 - ALTERED MENTAL STATUS, UNSPECIFIED Qualifiers: Altered mental status type: unspecified Qualified Code(s): R41.82 - Altered mental status, unspecified (3) Seizure Code(s): R56.9 - UNSPECIFIED CONVULSIONS (4) Dementia Code(s): F03.90 - UNSPECIFIED DEMENTIA WITHOUT BEHAVIORAL DISTURBANCE
[2016-11-03] MEDS: DEXTROSE 5%-NORMAL SALINE 1,000 ML IV SCH (19:24)
[2016-11-03] MEDS ORDERED: HALOPERIDOL LACTATE 5 MG/ML IM ONE (20:30)
[2016-11-03] MEDS: ATORVASTATIN CA 20 MG TABLET (FP) PO SCH (21:01)
[2016-11-04] MEDS ORDERED: LORAZEPAM CARPU-JECT 2 MG/ML DISP.SYRIN IM PRN (03:38)
[2016-11-04] MEDS: valACYclovir HCL 500 MG TABLET (FP) PO SCH (06:52)
[2016-11-04] MEDS: LEVOTHYROXINE NA 50 MCG TABLET (FP) PO SCH ×2 (06:52→07:01)
[2016-11-04] MEDS: GABAPENTIN 100 MG CAPSULE (FP) PO SCH ×3 (06:53→21:33)
--- NOTE | 2016-11-04 09:44 | PN ---
Progress Note (short form) - Note Progress Note: Subjective Patient seen and examined. Chart reviewed. Very confused last night. Had to give Ativan and Haldol. Today, she is calm and walking in hallway with assistance. Confused. Afebrile. Off abx. Denies pain. Objective Last Vital Signs Temp Pulse Resp BP Pulse Ox 97.4 F L 92 H 20 158/69 97 11/04/16 02:00 11/04/16 02:00 11/04/16 02:00 11/04/16 02:00 11/03/16 21:00 CBC, BMP 11/02/16 05:50 11/02/16 05:50 Laboratory Results - last 24 hr 11/03/16 05:40 ESR 20 Physical Exam Constitutional: Yes: No Distress Cardiovascular: Yes: Regular Rate and Rhythm Respiratory: Yes: CTA Bilaterally Gastrointestinal: Yes: Normal Bowel Sounds, Soft. No: Distention, Tenderness Edema: No Neuro: Awake and confused. Problem List - Problems (1) Altered mental status Code(s): R41.82 - ALTERED MENTAL STATUS, UNSPECIFIED Qualifiers: Altered mental status type: unspecified Qualified Code(s): R41.82 - Altered mental status, unspecified (2) Dementia Code(s): F03.90 - UNSPECIFIED DEMENTIA WITHOUT BEHAVIORAL DISTURBANCE (3) Hx of seizure disorder Code(s): Z86.69 - PERSONAL HISTORY OF DIS OF THE NERVOUS SYS AND SENSE ORGANS (4) HTN (hypertension) Code(s): I10 - ESSENTIAL (PRIMARY) HYPERTENSION (5) Fever Code(s): R50.9 - FEVER, UNSPECIFIED Qualifiers: Fever type: unspecified Qualified Code(s): R50.9 - Fever, unspecified (6) Hyponatremia Code(s): E87.1 - HYPO-OSMOLALITY AND HYPONATREMIA Assessment and Plan Clinically stable. Confused likely due to dementia. Start on Seroquel. Psych consult. Observe off abx. EEG pending. May need short term rehab. Will follow. Documentation prepared by Beverly Valenzuela, acting as a medical laboratory scientist for Aldo Shell MD.
[2016-11-04] MEDS ORDERED: PT OWN MED DRAWER 7, Y5N ONE ×2 (11:25→21:24)
[2016-11-04] MEDS: QUEtiapine FUMARATE 25 MG TABLET (FP) PO SCH ×2 (11:30→21:34)
[2016-11-04] MEDS: LISINOPRIL 10 MG TABLET (FP) PO SCH (11:30)
[2016-11-04] MEDS: DONEPEZIL HCL 5 MG TABLET (FP) PO SCH (11:30)
[2016-11-04] MEDS: HEPARIN NA (PORCINE) 5,000 UNITS/ML 1ML VIAL SQ SCH ×2 (11:33→21:35)
[2016-11-04] MEDS: amLODIPine BESYLATE 5 MG TABLET (FP) PO SCH (11:33)
[2016-11-04] MEDS: levETIRAcetam 250 MG TABLET (FP) PO SCH ×2 (11:34→21:32)
[2016-11-04] MEDS: PHENYTOIN 50 MG TAB.CHEW PO SCH (11:34)
[2016-11-04] MEDS: PHENYTOIN NA EXTENDED 100 MG CAPSULE (FP) PO SCH (11:34)
--- NOTE | 2016-11-04 12:01 | PN ---
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 Much calmer today. Self/ate entire breakfast. REC: soft,regular diet,thin liquids, supplements b/n meals, as indicated.
[2016-11-04] MEDS: ATORVASTATIN CA 20 MG TABLET (FP) PO SCH (21:33)
[2016-11-05] MEDS: valACYclovir HCL 500 MG TABLET (FP) PO SCH (06:19)
[2016-11-05] MEDS: DEXTROSE 5%-NORMAL SALINE 1,000 ML IV SCH (06:19)
[2016-11-05] MEDS: LEVOTHYROXINE NA 50 MCG TABLET (FP) PO SCH (06:19)
[2016-11-05] MEDS: GABAPENTIN 100 MG CAPSULE (FP) PO SCH ×2 (06:19→13:42)
[2016-11-05] MEDS ORDERED: LEVETIRACETAM 500 MG, LEVETIRACETAM 250 MG PO SCH (10:00)
[2016-11-05] MEDS: QUEtiapine FUMARATE 25 MG TABLET (FP) PO SCH (10:18)
[2016-11-05] MEDS: LISINOPRIL 10 MG TABLET (FP) PO SCH (10:18)
[2016-11-05] MEDS: amLODIPine BESYLATE 5 MG TABLET (FP) PO SCH (10:18)
[2016-11-05] MEDS: PHENYTOIN NA EXTENDED 100 MG CAPSULE (FP) PO SCH (10:19)
[2016-11-05] MEDS: HEPARIN NA (PORCINE) 5,000 UNITS/ML 1ML VIAL SQ SCH (10:19)
[2016-11-05] MEDS: DONEPEZIL HCL 5 MG TABLET (FP) PO SCH (10:19)
[2016-11-05] MEDS: PHENYTOIN 50 MG TAB.CHEW PO SCH (10:19)
--- NOTE | 2016-11-05 11:39 | PN ---
Mental Health Exam - Mental Status Exam Alert and Oriented to: Place (alert orientated by 2/4) Cognitive Function: Grossly Intact Patient Appearance: Well Groomed Mood: Depressed, Anxious Affect: Flat, Blunted Patient Behavior: Crying, Dependent, Suspicious, Cooperative Speech Pattern: Delayed, Perseverating ("i just want to go home') Voice Loudness: Moderately Soft/Quiet, Limited Variation Thought Process: Intact Thought Disorder: Not Present (but daughter reports periods of being paronoia that she will be hurt here. ) Hallucinations: Auditory (hears noises) Suicidal Ideation: None Homicidal Ideation: None Insight/Judgement: Impaired Sleep: Poorly, Difficulty falling asleep Appetite: Poor Muscle strength/Tone: Mild Hypertonicity Gait/Station: Deferred
--- NOTE | 2016-11-05 11:53 | PN ---
Progress Note, Physician Chief Complaint: "i want to get out of here" Client expeirence period of agitation in pm requiring Prn For agitation. - Current Medication List Current Medications: Active Medications Acetaminophen (Tylenol -) 650 mg PO Q4H PRN PRN Reason: FEVER OR PAIN Last Admin: 11/02/16 21:43 Dose: 650 mg Amlodipine Besylate (Norvasc -) 5 mg PO DAILY [facility] Last Admin: 11/05/16 10:18 Dose: 5 mg Atorvastatin Calcium (Lipitor -) 20 mg PO HS [facility] Last Admin: 11/04/16 21:33 Dose: 20 mg Donepezil HCl (Aricept -) 5 mg PO DAILY [facility] Last Admin: 11/05/16 10:19 Dose: 5 mg Gabapentin (Neurontin -) 100 mg PO TID [facility] Last Admin: 11/05/16 06:19 Dose: 100 mg Heparin Sodium (Porcine) (Heparin -) 5,000 unit SQ BID [facility] Last Admin: 11/05/16 10:19 Dose: 5,000 unit Dextrose/Sodium Chloride (D5-Ns -) 1,000 mls @ 75 mls/hr IV ASDIR [facility] Last Admin: 11/05/16 06:19 Dose: 75 mls/hr Levetiracetam 500 mg/ (Levetiracetam 250 mg) 750 mg PO BID [facility] Last Admin: 11/05/16 10:20 Dose: 750 mg Levothyroxine Sodium (Synthroid -) 50 mcg PO ACBK [facility] Last Admin: 11/05/16 06:19 Dose: 50 mcg Lisinopril (Prinivil) 10 mg PO DAILY [facility] Last Admin: 11/05/16 10:18 Dose: 10 mg Phenytoin Sodium (Dilantin Chewable Tablet -) 50 mg PO DAILY [facility] Last Admin: 11/05/16 10:19 Dose: 50 mg Phenytoin Sodium (Dilantin -) 200 mg PO DAILY [facility] Last Admin: 11/05/16 10:19 Dose: 200 mg Quetiapine Fumarate (Seroquel -) 12.5 mg PO BID [facility] Last Admin: 11/05/16 10:18 Dose: 12.5 mg Valacyclovir HCl (Valtrex -) 500 mg PO DAILY@0600 [facility] Last Admin: 11/05/16 06:19 Dose: 500 mg - Objective Vital Signs: Vital Signs Temperature 97.7 F 11/05/16 07:00 Pulse Rate 78 11/05/16 07:00 Respiratory Rate 18 11/05/16 07:00 Blood Pressure 148/81 11/05/16 07:00 O2 Sat by Pulse Oximetry (%) 97 11/04/16 21:00 Labs: CBC, BMP 11/02/16 05:50 11/02/16 05:50 INR, PTT INR 1.00 (0.82-1.09) 11/01/16 12:10 Problem List - Problems (1) Altered mental status Code(s): R41.82 - ALTERED MENTAL STATUS, UNSPECIFIED Qualifiers: Altered mental status type: unspecified Qualified Code(s): R41.82 - Altered mental status, unspecified (2) SunDown syndrome Code(s): F05 - DELIRIUM DUE TO KNOWN PHYSIOLOGICAL CONDITION Assessment/Plan Met Ms Norris in [address] with daughter Edilma present. Client has a flat affect, un smiling, mask like, preservation about leaving aler6 orientated by 2/4 currently , no agitation. She is tearful during interview also. She endorsed hearing a "sound like noise". Hx Dementia, which may have overlaying depressive episode, R/o delerium after Fevers. Her daughter Elena Ellsworth also confirms over the phone that she is having more "episodes" of panic at home where she take low dose Xanax PRN. Continue Seroquel 12.5 daily as ordered. as ordered, for mood symptoms may use prn seroquel 25mg, for sundowning also. Recommend Family support for daughter who endorsed that she is suffers depression herself. attend day program at [facility] 3 times a week, increase to 5 will be better, as Edilma is working mon -monday. may taper benzo as may add to her confusion. Thanks for consult.
--- NOTE | 2016-11-05 13:27 | DS ---
Physical Examination Vital Signs: Vital Signs Temperature 97.7 F 11/05/16 07:00 Pulse Rate 78 11/05/16 07:00 Respiratory Rate 18 11/05/16 07:00 Blood Pressure 148/81 11/05/16 07:00 O2 Sat by Pulse Oximetry (%) 99 11/05/16 09:00 Findings/Remarks: dictated Labs: CBC, BMP 11/02/16 05:50 11/02/16 05:50 Discharge Summary Reason For Visit: ALTERED MENTAL STATUS Current Active Problems Altered mental status (Acute) Elevated troponin I level (Acute) Fever (Acute) HTN (hypertension) (Acute) Hyponatremia (Acute) SunDown syndrome (Acute) Condition: Stable - Instructions Referrals: Stephen Wylie MD [Primary Care Provider] - - Home Medications Comprehensive Discharge Medication List: Ambulatory Orders Amlodipine Besylate/Benazepril [Lotrel 5-10 mg Capsule] 1 each PO DAILY Atorvastatin Calcium 20 mg PO HS 10/09/16 Donepezil HCl [Aricept -] 5 mg PO DAILY 10/09/16 Gabapentin [Neurontin] 100 mg PO TID 10/09/16 Levothyroxine Sodium [Unithroid] 50 mcg PO DAILY 10/09/16 Phenytoin 50 mg PO DAILY 10/09/16 Calcium Carbonate/Vitamin D3 [Calcium 600-Vit D3 200 Tablet] 2 each PO DAILY 08/19 Meloxicam [Mobic (Nf) -] 15 mg PO DAILY 11/01/16 Phenytoin Sodium Extended [Phenytek] 200 mg PO DAILY 11/01/16 Valacyclovir HCl [Valtrex -] 500 mg PO DAILY 11/01/16 Acetaminophen [Tylenol .Regular Strength -] 650 mg PO Q4H PRN #0 tablet Alprazolam [Xanax] 0.25 mg PO PRN #30 amp 11/05/16 Levetiracetam [Keppra -] 750 mg PO BID tablet 11/05/16 Quetiapine Fumarate [Seroquel -] 12.5 mg PO BID #60 tablet 11/05/16
[2016-11-05 14:18] VITALS: BP 134/62; PULSE 75; TEMP 97.9
--- NOTE | 2016-11-05 17:29 | DS ---
DATE OF ADMISSION: 11/01/2016 DATE OF DISCHARGE: 11/05/2016 HISTORY: This patient is a 76-year-old female with a past medical history of dementia, hypertension, seizure disorder, depression as well as hyperlipidemia was admitted to the hospital when she was brought to the emergency room on the day of admission due to lethargy and not following commands. In the emergency room, patient was also noted to have a fever of 101. Patient was admitted to the floor, given broad-spectrum antibiotics. Workup also revealed patient has borderline elevation of troponin for which a cardiology consultation was taken, and echocardiogram was also done, which was essentially unremarkable. It was suspected that the positive troponin was likely due to stress. LABS: During the stay, all the cultures were negative, influenza was negative, and antibiotics were stopped. Infectious disease also followed the patient. Now, patient is stable. PHYSICAL EXAMINATION: General: Today, patient is seen by me on the floor, comfortable and not in distress. Mood is calm today. Vital signs: Blood pressure 148/80, pulse 70, respirations 16. She is afebrile. HEENT: Neck supple. Lungs: Clear. Heart sounds regular. Abdomen: Soft, nontender. Extremities: No rebound. Neurological: She is alert and awake, but forgetful. ASSESSMENT: Patient is a 76-year-old female with past medical history as mentioned, was admitted due to fevers and worsening of altered mental status. Patient also had hyponatremia, which is resolved. Patient is now back to baseline. Workup for sepsis was negative. Neurology also followed the patient. Patient is now stable for discharge. I had extensive talk with patient's daughter who was at bedside. I suggested that she may benefit from short-term rehab, but patient's daughter says she would like to go home, and patient also wants to go home. They do not agree with short-term rehab. In fact, they want to go home today. Patient is medically stable for discharge otherwise. I reconciled the medications. PLAN: 1. Will discharge home today. 2. Patient to follow with her primary care physician next week. 3. I would also like to mention that we talked about a psych consult also, and patient was seen by a psychiatrist today. 4. Continue with the medications. 5. Discussed with nursing staff also. DISCHARGE DIAGNOSIS: 1. Altered mental status/worsening of dementia. 2. Possible seizure. Discharge timing and examination documenting as well as coordinating care: 35 minutes. Hiwot DRAKE/[id number]
== END 2016-11-05 15:18 | disposition home or self-care (01) | DRG 884 ==
LOC: JER 11:36 → JERBED 13:29 → J4W 19:10 → J7W 11-03 15:07
PROVIDERS: ADMIT Internal Medicine; ATTEND Internal Medicine
DX: F03.91 Unspecified dementia, unspecified severity, with behavioral disturbance (principal); F05 Delirium due to known physiological condition; E87.1 Hypo-osmolality and hyponatremia; I10 Essential (primary) hypertension; E78.5 Hyperlipidemia, unspecified; G40.909 Epilepsy, unspecified, not intractable, without status epilepticus; I44.0 Atrioventricular block, first degree; E86.0 Dehydration; R50.9 Fever, unspecified; D64.9 Anemia, unspecified; F32.9 Major depressive disorder, single episode, unspecified
CPT/HCPCS: 36415; 70450-TC; 71010-TC; 80053; 80185; 81003; 81015; 82550; 82553; 82803; 83605; 84439; 84443; 84484; 85025; 85610; 85651; 85730; 86140; 86850; 86900; 86901; 87040; 87086; 87254; 87804; 93005; 93010; 93306-TC; 95816; 97116-GP; 97161-GP; 99285-25; J1644

== ENCOUNTER 2017-06-26 11:52 | Inpatient (IN) | payer OTHER ==
--- NOTE | 2017-06-26 12:18 | PDOC ---
History of Present Illness - General History Source: Patient Exam Limitations: No Limitations - History of Present Illness Initial Comments: 06/26/17 12:48 The patient is a 77-year-old female with a significant past medical history of seizure disorder, dementia, HTN, HLD, hypothyroidism, and hyponatremia, who presents to the emergency department with altered mental status for 3 days. As per daughter, the patient is confused, has dementia, and follows commands at baseline. She states the patient was complaining of a headache 3 days ago, and has been different since. As per daughter, the patient has been talking incoherently and hallucinating, such as going to her sisters room to throw holy water. Daughter states the patient has talked about her past during some previous epileptic episodes, but states this hallucination is new. Daughter states the patient has also been crying, eating less, and going to the bathroom less frequently. Denies chest pain, shortness of breath, dizziness. Denies fever, chills, nausea , vomit, diarrhea, and constipation. The patient denies dysuria, frequency, urgency and hematuria. Allergies: hydromorphone, celebrex Past Surgical History: thyroidectomy, D&C hysterectomy Social History: No toxic habits reported PCP: Dr. Wylie <Taniya Nieves - Last Filed: 06/26/17 12:50> <Vlad Lipscomb - Last Filed: 06/26/17 17:51> - General Chief Complaint: Altered Mental Status Stated Complaint: ALTERED MENTAL STATUS Time Seen by Provider: 06/26/17 12:18 Past History <Taniya Nieves - Last Filed: 06/26/17 12:50> - Past Medical History Anemia: Yes Asthma: No Cancer: No Cardiac Disorders: No CVA: No COPD: No CHF: No Dementia: Yes Diabetes: No GI Disorders: Yes (reflux) Disorders: No HTN: Yes Hypercholesterolemia: Yes Liver Disease: No Psychiatric Problems: Yes (depression, ANXIETY.) Seizures: Yes (epilepsy) Thyroid Disease: Yes (HYPOTHYROID) - Surgical History Abdominal Surgery: No Appendectomy: No Cardiac Surgery: No Cholecystectomy: No Lung Surgery: No Neurologic Surgery: No Orthopedic Surgery: No - Reproductive History Cervical CA: No Dysfunctional Uterine Bleeding: No Ectopic : No Endometrial CA: No Polycystic Ovaries: No Tubal Ligation: No - Immunization History Immunization Up to Date: Yes - Suicide/Smoking/Psychosocial Hx Smoking Status: No Smoking History: Never smoked Have you smoked in the past 12 months: No Number of Cigarettes Smoked Daily: 0 Hx Alcohol Use: No Drug/Substance Use Hx: No Substance Use Type: None Hx Substance Use Treatment: No <Vlad Lipscomb - Last Filed: 06/26/17 17:51> - Past Medical History Allergies/Adverse Reactions: Allergies Allergy/AdvReac Type Severity Reaction Status Date / Time hydromorphone HCl Allergy Mild Itching Verified 06/26/17 12:37 [From Dilaudid] Home Medications: Ambulatory Orders Amlodipine Besylate/Benazepril [Lotrel 5-10 mg Capsule] 1 each PO DAILY Atorvastatin Calcium 20 mg PO HS 10/09/16 Donepezil HCl [Aricept -] 5 mg PO DAILY 10/09/16 Gabapentin [Neurontin] 100 mg PO TID 10/09/16 Levothyroxine Sodium [Unithroid] 50 mcg PO DAILY 10/09/16 Phenytoin 50 mg PO DAILY 10/09/16 Calcium Carbonate/Vitamin D3 [Calcium 600-Vit D3 200 Tablet] 2 each PO DAILY 08/19 Phenytoin Sodium Extended [Phenytek] 200 mg PO DAILY 11/01/16 Valacyclovir HCl [Valtrex -] 500 mg PO DAILY 11/01/16 Acetaminophen [Tylenol .Regular Strength -] 650 mg PO Q4H PRN #0 tablet Alprazolam [Xanax] 0.25 mg PO PRN #30 amp 11/05/16 Levetiracetam [Keppra -] 750 mg PO BID tablet 11/05/16 Alendronate Na [Fosamax] 70 mg PO Q7D 06/26/17 Celecoxib [Celebrex] 200 mg PO BID PRN 06/26/17 Quetiapine Fumarate [Seroquel -] 25 mg PO BID 06/26/17 Review of Systems - Review of Systems Able to Perform ROS?: No (confusion) <Taniya Nieves - Last Filed: 06/26/17 12:50> *Physical Exam - Vital Signs Last Vital Signs Temp Pulse Resp BP Pulse Ox 98.6 F 106 H 20 150/60 98 06/26/17 11:58 06/26/17 11:58 06/26/17 11:58 06/26/17 11:58 06/26/17 11:58 - Physical Exam Comments: 06/26/17 12:49 GENERAL: Awake, alert, and fully oriented. (+) Patient appears fretful and tearful. HEAD: No signs of trauma EYES: PERRLA, EOMI, sclera anicteric, conjunctiva clear ENT: Auricles normal inspection, hearing grossly normal, nares patent, oropharynx clear without exudates. Moist mucosa NECK: Normal ROM, supple, no lymphadenopathy, JVD, or masses LUNGS: Breath sounds equal, clear to auscultation bilaterally. No wheezes, and no crackles HEART: Regular rate and rhythm, normal S1 and S2, no murmurs, rubs or gallops ABDOMEN: Soft, nontender, normoactive bowel sounds. No guarding, no rebound. No masses EXTREMITIES: Normal range of motion, no edema. No clubbing or cyanosis. No cords, erythema, or tenderness NEUROLOGICAL: Cranial nerves II through XII grossly intact. SKIN: Warm, Dry, normal turgor, no rashes or lesions noted. <Taniya Nieves - Last Filed: 06/26/17 12:50> - Vital Signs Last Vital Signs Temp Pulse Resp BP Pulse Ox 98.6 F 106 H 20 150/60 98 06/26/17 11:58 06/26/17 11:58 06/26/17 11:58 06/26/17 11:58 06/26/17 11:58 <Vlad Lipscomb - Last Filed: 06/26/17 17:51> ED Treatment Course - LABORATORY CBC & Chemistry Diagram: 06/26/17 13:25 06/26/17 13:25 <Vlad Lipscomb - Last Filed: 06/26/17 17:51> *DC/Admit/Observation/Transfer - Attestations Scribe Attestion: 06/26/17 12:49 Documentation prepared by Taniya Nieves, acting as medical equipment technician for Vlad Lipscomb MD/. <Taniya Nieves - Last Filed: 06/26/17 12:50> - Discharge Dispostion Admit: Yes - Attestations Physician Attestion: 06/26/17 12:18 I, Dr. Vlad Lipscomb, attest that this document has been prepared under my direction and personally reviewed by me in its entirety. I further attest, that it accurately reflects all work, treatment, procedures and medical decision -making performed by me. <Vlad Lipscomb - Last Filed: 06/26/17 17:51> Diagnosis at time of Disposition: Confusion, Hx of seizure disorder, Acute kidney injury Altered mental status, unspecified Qualifiers: Altered mental status type: transient alteration of awareness Qualified Code(s) : R40.4 - Transient alteration of awareness Dementia Qualifiers: Dementia type: Alzheimer's disease Alzheimer's disease onset: unspecified onset - Discharge Dispostion Condition at time of disposition: Improved
[2017-06-26 13:41] LABS: BASO % 0.3 % (0-2.0); EOS % 0.1 % (0-4.5); HEMATOCRIT 35.1 % (32.4-45.2); HEMOGLOBIN 11.8 GM/dL (10.7-15.3); LYMPH % 9.7 % (8-40); MCH 34.4 pg (25.7-33.7); MCHC 33.6 g/dl (32.0-36.0); MEAN CELL VOLUME 102.5 fl (80-96); MEAN PLT VOLUME 7.8 fl (7.5-11.1); MONO % 7.9 % (3.8-10.2); PLATELET COUNT 239 K/MM3 (134-434); RBC 3.42 M/mm3 (3.60-5.2); RDW 12.7 % (11.6-15.6); WHITE BLOOD COUNT 9.6 K/mm3 (4.0-10.0)
[2017-06-26 13:55] LABS: INR 0.97 (0.82-1.09); VENOUS PC02 33.6 mmHg (38-52); VENOUS PH 7.45 (7.32-7.42); VENOUS PO2 75.3 mmHg (28-48)
[2017-06-26 13:58] LABS: ACTIVATED PTT 25.7 SECONDS (26.9-34.4)
[2017-06-26 14:06] LABS: ALBUMIN 4.2 g/dl (3.4-5.0); ANION GAP 10 (8-16); BILIRUBIN,TOTAL 0.4 mg/dL (0.2-1.0); BLOOD UREA NITROGEN 36 mg/dL (7-18); CALCIUM 9.2 mg/dL (8.5-10.1); CHLORIDE 106 mmol/L (98-107); CO2 24 mmol/L (21-32); CREATININE 1.5 mg/dL (0.55-1.02); GLUCOSE,RANDOM 123 mg/dL (74-106); POTASSIUM 4.3 mmol/L (3.5-5.1); SGOT/AST 23 U/L (15-37); SGPT/ALT 23 U/L (12-78); SODIUM 140 mmol/L (136-145)
[2017-06-26 14:09] LABS: ALK PHOS 125 U/L (45-117)
[2017-06-26] MEDS ORDERED: SODIUM CHLORIDE 500 ML IV STA (14:34)
[2017-06-26 16:35] LABS: URINE APPEARANCE CLEAR; URINE BILIRUBIN NEGATIVE (NEGATIVE); URINE BLOOD 1+ (NEGATIVE); URINE COLOR STRAW; URINE GLUCOSE (UA) NEGATIVE (NEGATIVE); URINE KETONE NEGATIVE (NEGATIVE); URINE LEUK ESTERASE NEGATIVE (NEGATIVE); URINE NITRITE NEGATIVE (NEGATIVE); URINE PROTEIN NEGATIVE (NEGATIVE); URINE UROBILINOGEN NEGATIVE mg/dL (0.2-1.0)
[2017-06-26 17:04] LABS: EPI CELLS RARE /HPF (FEW); URINE MUCUS RARE
--- NOTE | 2017-06-26 17:57 | HP ---
Admitting History and Physical - Primary Care Physician PCP: Stephen Wylie - Admission Chief Complaint: altered mental status, confusion History of Present Illness: HPI: This is a 76 yrs old female with pmhx seizure disorder, dementia, HTN, HLD, hypothyroidism, and hyponatremia, presented to the ED with AMS since Monday. Daughter at bedside said she was fine and Monday she had increased confusion and paranoia telling her daughter not to do things like drink water. Per her other daughter who she lives with stock ranch supervisor she complained of a frontal head ache to which the patient confirmed. The patient also stated she hears voices, they do not tell her to harm herself or others. She says they do not have a face they are "colors" Per ED record the patient has been talking incoherently and hallucinating, such as going to her sisters room to throw holy water and the patient has been crying , eating less, and going to the bathroom less frequently The patient denies sob, chest pain, n/v. History Source: Patient, Family Member, Medical Record Limitations to Obtaining History: Dementia, Poor Historian - Past Medical History [employer]: Yes: Dementia, Seizure, Other (depression) Cardiovascular: Yes: HTN, Hyperlipdemia - Smoking History Smoking history: Never smoked Have you smoked in the past 12 months: No Aproximately how many cigarettes per day: 0 - Alcohol/Substance Use Hx Alcohol Use: No - Social History Usual Living Arrangement: Yes: With Child ADL: Family Assistance Occupation: could not obtain social hx due to dementia Home Medications - Allergies Allergies/Adverse Reactions: Allergies Allergy/AdvReac Type Severity Reaction Status Date / Time hydromorphone HCl Allergy Mild Itching Verified 06/26/17 12:37 [From Dilaudid] - Home Medications Home Medications: Ambulatory Orders Amlodipine Besylate/Benazepril [Lotrel 5-10 mg Capsule] 1 each PO DAILY Atorvastatin Calcium 20 mg PO HS 10/09/16 Donepezil HCl [Aricept -] 5 mg PO DAILY 10/09/16 Gabapentin [Neurontin] 100 mg PO TID 10/09/16 Levothyroxine Sodium [Unithroid] 50 mcg PO DAILY 10/09/16 Phenytoin 50 mg PO DAILY 10/09/16 Calcium Carbonate/Vitamin D3 [Calcium 600-Vit D3 200 Tablet] 2 each PO DAILY 08/19 Phenytoin Sodium Extended [Phenytek] 200 mg PO DAILY 11/01/16 Valacyclovir HCl [Valtrex -] 500 mg PO DAILY 11/01/16 Acetaminophen [Tylenol .Regular Strength -] 650 mg PO Q4H PRN #0 tablet Alprazolam [Xanax] 0.25 mg PO PRN #30 amp 11/05/16 Levetiracetam [Keppra -] 750 mg PO BID tablet 11/05/16 Alendronate Na [Fosamax] 70 mg PO Q7D 06/26/17 Celecoxib [Celebrex] 200 mg PO BID PRN 06/26/17 Quetiapine Fumarate [Seroquel -] 25 mg PO BID 06/26/17 Review of Systems Unable to obtain ROS, reason: dementia - Review of Systems Neurological: reports: Confusion, Pre-Existing Deficit Physical Examination Vital Signs: Vital Signs Temperature 98.6 F 06/26/17 11:58 Pulse Rate 86 06/26/17 17:46 Respiratory Rate 19 06/26/17 17:46 Blood Pressure 151/73 06/26/17 17:46 O2 Sat by Pulse Oximetry (%) 98 06/26/17 17:46 Constitutional: Yes: Calm Eyes: Yes: Conjunctiva Clear HENT: Yes: Atraumatic Neck: Yes: Supple, Trachea Midline Cardiovascular: Yes: Regular Rate and Rhythm, S1, S2 Respiratory: Yes: Regular, CTA Bilaterally Gastrointestinal: Yes: Normal Bowel Sounds, Soft Musculoskeletal: Yes: WNL Extremities: Yes: WNL Edema: No Neurological: Yes: Alert, Confusion, Cran Nerves II-XII Intact, Tremors Psychiatric: Yes: Other (hearing voices) Labs: CBC, BMP 06/26/17 13:25 06/26/17 13:25 Imaging - Results Cat Scan: Report Reviewed Problem List - Problems (1) Acute kidney injury Code(s): N17.9 - ACUTE KIDNEY FAILURE, UNSPECIFIED (2) Altered mental status Code(s): R41.82 - ALTERED MENTAL STATUS, UNSPECIFIED Qualifiers: Altered mental status type: transient alteration of awareness Qualified Code(s): R40.4 - Transient alteration of awareness (3) Confusion Code(s): R41.0 - DISORIENTATION, UNSPECIFIED (4) Dementia Code(s): F03.90 - UNSPECIFIED DEMENTIA WITHOUT BEHAVIORAL DISTURBANCE Qualifiers: Dementia type: Alzheimer's disease Alzheimer's disease onset: unspecified onset (5) Hx of seizure disorder Code(s): Z86.69 - PERSONAL HISTORY OF DIS OF THE NERVOUS SYS AND SENSE ORGANS Assessment/Plan Assessment: 77 year old female admitted with confusion and hallucinations Plan: 1. New onset hallucinations/AMS/worsening dementia ? - Psych consulted - Check TSH, RPR, LFT's - Aricept 5mg daily - Seroquel 25mg daily 2. Epilepsy - Continue seizure meds - Head CT negative - Keppra level pending 3. Elevated CKMB - Repeat CE at 1900 4. FAUSTO - Start gentle fluids 50cc/hr x1L 5. DVT prophylaxis - Heparin sq 6. Hypothyroid - Synthroid 7. HTN - Continue home meds Visit type - Emergency Visit Emergency Visit: Yes Care time: The patient presented to the Emergency Department on the above date and was hospitalized for further evaluation of their emergent condition. - New Patient This patient is new to me today: Yes Date on this admission: 06/26/17 - Critical Care Critical Care patient: No
[2017-06-26] MEDS ORDERED: SODIUM CHLORIDE 0.45% 1,000 ML IV SCH (18:45)
[2017-06-26] MEDS ORDERED: ASPIRIN 325 MG TABLET PO ONE (20:14)
[2017-06-26] MEDS ORDERED: ASPIRIN 325 MG TABLET ONE ×2 (20:35→20:46)
[2017-06-26] MEDS: levETIRAcetam 500 MG TABLET (FP) PO SCH (22:43)
[2017-06-26] MEDS: GABAPENTIN 100 MG CAPSULE (FP) PO SCH (22:43)
[2017-06-26] MEDS: QUEtiapine FUMARATE 25 MG TABLET (FP) PO SCH (22:43)
[2017-06-26] MEDS: DONEPEZIL HCL 5 MG TABLET (FP) PO SCH (22:44)
[2017-06-26] MEDS: HEPARIN NA (PORCINE) 5,000 UNITS/ML 1ML VIAL SQ SCH (22:44)
[2017-06-27] MEDS: GABAPENTIN 100 MG CAPSULE (FP) PO SCH ×2 (06:03→22:30)
[2017-06-27] MEDS: LEVOTHYROXINE NA 50 MCG TABLET (FP) PO SCH (06:03)
[2017-06-27 08:31] LABS: BASO % 0.8 % (0-2.0); EOS % 1.4 % (0-4.5); HEMATOCRIT 34.5 % (32.4-45.2); HEMOGLOBIN 11.6 GM/dL (10.7-15.3); LYMPH % 25.3 % (8-40); MCH 34.9 pg (25.7-33.7); MCHC 33.7 g/dl (32.0-36.0); MEAN CELL VOLUME 103.5 fl (80-96); MEAN PLT VOLUME 7.7 fl (7.5-11.1); MONO % 10.8 % (3.8-10.2); NEUT % 61.7 % (42.8-82.8); PLATELET COUNT 219 K/MM3 (134-434); RBC 3.33 M/mm3 (3.60-5.2); RDW 12.9 % (11.6-15.6); WHITE BLOOD COUNT 6.5 K/mm3 (4.0-10.0)
[2017-06-27 08:59] LABS: ALBUMIN 3.5 g/dl (3.4-5.0); ANION GAP 8 (8-16); BLOOD UREA NITROGEN 23 mg/dL (7-18); CALCIUM 7.9 mg/dL (8.5-10.1); CHLORIDE 110 mmol/L (98-107); CO2 23 mmol/L (21-32); GLUCOSE,RANDOM 101 mg/dL (74-106); MAGNESIUM 2.4 mg/dL (1.8-2.4); POTASSIUM 4.3 mmol/L (3.5-5.1); SODIUM 141 mmol/L (136-145)
[2017-06-27 09:02] LABS: ALK PHOS 122 U/L (45-117); BILIRUBIN,TOTAL 0.7 mg/dL (0.2-1.0); CREATININE 1.1 mg/dL (0.55-1.02); PHOSPHOROUS 3.2 mg/dL (2.5-4.9); SGOT/AST 24 U/L (15-37); SGPT/ALT 21 U/L (12-78); TOT PROT 7.2 g/dl (6.4-8.2)
[2017-06-27] MEDS ORDERED: PATIENT'S OWN MEDICATION (NON-FORMULARY) (Amlodipine Besylate/Benazepril [Lotrel 5-10 Mg C PO SCH (10:00)
[2017-06-27] MEDS: QUEtiapine FUMARATE 25 MG TABLET (FP) PO SCH ×2 (10:13→22:30)
[2017-06-27] MEDS: PHENYTOIN 50 MG TAB.CHEW PO SCH (10:15)
[2017-06-27] MEDS: LISINOPRIL 10 MG TABLET (FP) PO SCH (10:16)
[2017-06-27] MEDS: amLODIPine BESYLATE 5 MG TABLET (FP) PO SCH (10:16)
[2017-06-27] MEDS: valACYclovir HCL 500 MG TABLET (FP) PO SCH (10:18)
[2017-06-27] MEDS: HEPARIN NA (PORCINE) 5,000 UNITS/ML 1ML VIAL SQ SCH ×2 (10:20→22:29)
[2017-06-27] MEDS: levETIRAcetam 500 MG TABLET (FP) PO SCH ×2 (10:21→22:30)
--- NOTE | 2017-06-27 11:32 | CON.PSY ---
Psychiatry Consult Chief Complaint: 77 year old female with a history of Dementia, and other vcaute medical conditions brought vto ER by daughter for acutec changes in mental status andc hallucinations and Paranoia. patient seen this morning band spoken thru her Grandson. she seems more alert and able to engage in conversations, knew that she si in ther Hospital and denies seeing any thing and does not seem to display any acute paranoid behaviour. Symptoms: reports: Irritability, Delusions, Hallucinations, Paranoia - Previous Psychiatric Treatment Outpatient: None Inpatient: None - Previous Substance Abuse Treatment Outpatient: None Inpatient: None - Current Medications Current Medications: Active Medications Amlodipine Besylate (Norvasc -) 5 mg PO DAILY [facility] Last Admin: 06/27/17 10:16 Dose: 5 mg Donepezil HCl (Aricept -) 5 mg PO HS [facility] Last Admin: 06/26/17 22:44 Dose: 5 mg Gabapentin (Neurontin -) 100 mg PO TID [facility] Last Admin: 06/27/17 06:03 Dose: 100 mg Heparin Sodium (Porcine) (Heparin -) 5,000 unit SQ BID [facility] Last Admin: 06/27/17 10:20 Dose: 5,000 unit Sodium Chloride (1/2 Normal Saline) 1,000 mls @ 50 mls/hr IV ASDIR [facility] Stop: 06/27/17 14:44 Last Admin: 06/27/17 03:30 Dose: 50 mls/hr Levetiracetam (Keppra -) 750 mg PO BID [facility] Last Admin: 06/27/17 10:21 Dose: 750 mg Levothyroxine Sodium (Synthroid -) 50 mcg PO DAILY@0700 [facility] Last Admin: 06/27/17 06:03 Dose: 50 mcg Lisinopril (Prinivil) 10 mg PO DAILY [facility] Last Admin: 06/27/17 10:16 Dose: 10 mg Phenytoin Sodium (Dilantin Chewable Tablet -) 50 mg PO DAILY [facility] Last Admin: 06/27/17 10:15 Dose: 50 mg Quetiapine Fumarate (Seroquel -) 25 mg PO BID [facility] Last Admin: 06/27/17 10:13 Dose: 25 mg Valacyclovir HCl (Valtrex -) 500 mg PO DAILY [facility] Last Admin: 06/27/17 10:18 Dose: 500 mg - Allergies Allergies: Allergies Allergy/AdvReac Type Severity Reaction Status Date / Time hydromorphone HCl Allergy Mild Itching Verified 06/26/17 12:37 [From Dilaudid] - Current Living Status Usual Living Arrangement: With Child - Current Mental Status Evaluation Appearance: Disheveled Attitude: Cooperative - Affect Affect: Constrictive Appropriateness: Appropriate to Content - Mood Mood: Euthymic - Speech/Language Expressive: Coherent - Psychomotor Activity Psychomotor Activity: Slowed - Thought Process Thought Process: Circumstantial - Thought Content Hallucinations: Present Hallucinations. Description: Visual at admission Delusions: Present Type: Persectory - Self Perception Self Perception: No Impairment - Cognition Attention: Alert Orientation: Person Memory, Immediate Recall: Impaired Memory, Short Term: 2/3 Memory, Remote with Promptin/3 - Concentration Serial Sevens Intact: No Simple Calculations Intact: No - Abstraction Proverb Interpretation: Impaired Judgement: Minimally Impaired - Insight Insight: Impaired - Impulse Control Impulse Control: Minimally Impaired - Suicidal Ideation Suicidal Ideation: No - Homicidal Ideation Homicidal Ideation: No Assessment/Plan 1) Continue with Seroquel 25mg po bid. 2)Will follow.
--- NOTE | 2017-06-27 13:11 | EKG ---
Test Reason : Blood Pressure : / mmHG Vent. Rate : 090 BPM Atrial Rate : 090 BPM P-R Int : 180 ms QRS Dur : 092 ms QT Int : 348 ms P-R-T Axes : 028 -31 077 degrees QTc Int : 425 ms NORMAL SINUS RHYTHM LEFT AXIS DEVIATION ABNORMAL ECG WHEN COMPARED WITH ECG OF 01-NOV-2016 11:55, [place] INTERVAL HAS DECREASED Confirmed by MD Brewster Daniel ([id number]) on 06/27/2017 1:11:19 PM Referred By: Confirmed By:Nicolas Brewster MD
--- NOTE | 2017-06-27 17:07 | PN ---
Progress Note (short form) - Note Progress Note: pt seen/ examined in er chart reviewed pt calm at present/ sleepy not answering questions daughter at bedside- says she was up all the time- tired moves all extremities seen by psych- no change n meds recommended Vital Signs Temp 98.1 F 06/27/17 05:53 Pulse 85 06/27/17 15:21 Resp 14 06/27/17 15:21 BP 130/71 06/27/17 15:21 Pulse Ox 97 06/27/17 15:21 Intake & Output 06/26/17 06/27/17 06/27/17 23:59 11:59 23:59 Intake Total 500 Balance 500 Intake: IV 500 Normal Saline - 500 ml @ 500 500 mls/hr IV ASDIR STA Rx#:[id number] Other: Voiding Method Toilet Toilet # Unmeasured Voids Void 1 Active Medications Amlodipine Besylate (Norvasc -) 5 mg PO DAILY [facility] Last Admin: 06/27/17 10:16 Dose: 5 mg Donepezil HCl (Aricept -) 5 mg PO HS [facility] Last Admin: 06/26/17 22:44 Dose: 5 mg Gabapentin (Neurontin -) 100 mg PO TID [facility] Last Admin: 06/27/17 06:03 Dose: 100 mg Heparin Sodium (Porcine) (Heparin -) 5,000 unit SQ BID [facility] Last Admin: 06/27/17 10:20 Dose: 5,000 unit Levetiracetam (Keppra -) 750 mg PO BID [facility] Last Admin: 06/27/17 10:21 Dose: 750 mg Levothyroxine Sodium (Synthroid -) 50 mcg PO DAILY@0700 [facility] Last Admin: 06/27/17 06:03 Dose: 50 mcg Lisinopril (Prinivil) 10 mg PO DAILY [facility] Last Admin: 06/27/17 10:16 Dose: 10 mg Phenytoin Sodium (Dilantin Chewable Tablet -) 50 mg PO DAILY [facility] Last Admin: 06/27/17 10:15 Dose: 50 mg Quetiapine Fumarate (Seroquel -) 25 mg PO BID [facility] Last Admin: 06/27/17 10:13 Dose: 25 mg Valacyclovir HCl (Valtrex -) 500 mg PO DAILY [facility] Last Admin: 06/27/17 10:18 Dose: 500 mg CBC, BMP 06/27/17 07:45 06/27/17 07:45 Physical Examination Constitutional: Yes: Calm Eyes: Yes: Conjunctiva Clear HENT: Yes: Atraumatic Neck: Yes: Supple, Trachea Midline Cardiovascular: Yes: Regular Rate and Rhythm, S1, S2 Respiratory: Yes: Regular, CTA Bilaterally Gastrointestinal: Yes: Normal Bowel Sounds, Soft/ non tender Musculoskeletal: Yes: WNL Extremities: Yes: WNL Edema: No Neurological: Yes: Alert, Confusion, Cran Nerves II-XII Intact, Psychiatric: Yes: calm. Imaging - Results Cat Scan: Report Reviewed Problem List - Problems (1) Acute kidney injury Code(s): N17.9 - ACUTE KIDNEY FAILURE, UNSPECIFIED (2) Altered mental status Code(s): R41.82 - ALTERED MENTAL STATUS, UNSPECIFIED Qualifiers: Altered mental status type: transient alteration of awareness Qualified Code(s): R40.4 - Transient alteration of awareness (3) Confusion Code(s): R41.0 - DISORIENTATION, UNSPECIFIED (4) Dementia Code(s): F03.90 - UNSPECIFIED DEMENTIA WITHOUT BEHAVIORAL DISTURBANCE Qualifiers: Dementia type: Alzheimer's disease Alzheimer's disease onset: unspecified onset (5) Hx of seizure disorder Code(s): Z86.69 - PERSONAL HISTORY OF DIS OF THE NERVOUS SYS AND SENSE ORGANS Assessment/Plan worsening dementia continue present care mild hydration psych on case slightly elevated troponins- cardio consult requested-- pt seen/ examined with dr. Macario - who came to see pt in er will follow neuro consult also requested .
--- NOTE | 2017-06-27 17:44 | CON.CARD ---
Consult Consult Specialty:: cardiology Reason for Consultation:: TNI elevation; CAD risks - History of Present Illness Chief Complaint: Pt opens eyes; does not follow commands. Her daughter is at bedside. History of Present Illness: The patient is a 77-year-old female with a significant past medical history of seizure disorder, dementia (per daughter, pt usually reconizes family members), HTN, HLD, hypothyroidism, and hyponatremia, who presents to the emergency department with altered mental status for 3 days. As per daughter, the patient is confused, has dementia, and follows commands at baseline. She states the patient was complaining of a headache 3 days ago, and has been different since. As per daughter, the patient has been talking incoherently and hallucinating, such as going to her sister's room to throw holy water. Daughter states the patient has talked about her past during some previous epileptic episodes, but states this hallucination is new. Daughter states the patient has also been crying, eating less, and going to the bathroom less frequently. Denies chest pain, shortness of breath, dizziness. Denies fever, chills, nausea , vomit, diarrhea, and constipation. The patient denies dysuria, frequency, urgency and hematuria. Daughter states pt was able to walk short distances until recently, and did not complain of chest pain or shortness of breath. Allergies: hydromorphone, celebrex Past Surgical History: thyroidectomy, D&C hysterectomy Social History: No toxic habits reported PCP: Dr. 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: Dementia, Seizure, Other (depression) Cardio/Vascular: Yes: HTN, Hyperlipdemia Renal/: Yes: Renal Inusuff Reproductive: Yes: Postmenopausal ...: No Heme/Onc: Yes: Anemia (megaloblastic) Psych: Yes: Other (dementia; now with further, acute change in mental status) Musculoskeletal: Yes: Other (generalized weakness) - Past Surgical History Past Surgical History: Yes: Hysterectomy Additional Surgical History: thyroidectomy - Alcohol/Substance Use Hx Alcohol Use: No - Smoking History Smoking history: Never smoked Have you smoked in the past 12 months: No Aproximately how many cigarettes per day: 0 - Social History Usual Living Arrangement: With Child ADL: Family Assistance Occupation: could not obtain social hx due to dementia Home Medications - Allergies Allergies/Adverse Reactions: Allergies Allergy/AdvReac Type Severity Reaction Status Date / Time hydromorphone HCl Allergy Mild Itching Verified 06/26/17 12:37 [From Dilaudid] - Home Medications Home Medications: Ambulatory Orders Amlodipine Besylate/Benazepril [Lotrel 5-10 mg Capsule] 1 each PO DAILY Atorvastatin Calcium 20 mg PO HS 10/09/16 Donepezil HCl [Aricept -] 5 mg PO DAILY 10/09/16 Gabapentin [Neurontin] 100 mg PO TID 10/09/16 Levothyroxine Sodium [Unithroid] 50 mcg PO DAILY 10/09/16 Phenytoin 50 mg PO DAILY 10/09/16 Calcium Carbonate/Vitamin D3 [Calcium 600-Vit D3 200 Tablet] 2 each PO DAILY 08/19 Phenytoin Sodium Extended [Phenytek] 200 mg PO DAILY 11/01/16 Valacyclovir HCl [Valtrex -] 500 mg PO DAILY 11/01/16 Acetaminophen [Tylenol .Regular Strength -] 650 mg PO Q4H PRN #0 tablet Alprazolam [Xanax] 0.25 mg PO PRN #30 amp 11/05/16 Levetiracetam [Keppra -] 750 mg PO BID tablet 11/05/16 Alendronate Na [Fosamax] 70 mg PO Q7D 06/26/17 Celecoxib [Celebrex] 200 mg PO BID PRN 06/26/17 Quetiapine Fumarate [Seroquel -] 25 mg PO BID 06/26/17 Review of Systems - Review of Systems Constitutional: reports: Weakness Eyes: reports: No Symptoms HENT: reports: No Symptoms Neck: reports: No Symptoms Cardiovascular: reports: No Symptoms Respiratory: reports: No Symptoms Gastrointestinal: reports: No Symptoms Genitourinary: reports: No Symptoms Breasts: reports: No Symptoms Reported Musculoskeletal: reports: Muscle Weakness Integumentary: reports: No Symptoms Neurological: reports: Confusion, Weakness Endocrine: reports: No Symptoms Hematology/Lymphatic: reports: No Symptoms Psychiatric: reports: Other (dementia) - Risk Factors Known Risk Factors: Yes: Age, Hypercholesterolemia, Hypertension Vital Signs: Vital Signs Temperature 98.1 F 06/27/17 05:53 Pulse Rate 85 06/27/17 15:21 Respiratory Rate 14 12/26/17 15:21 Blood Pressure 130/71 06/27/17 15:21 O2 Sat by Pulse Oximetry (%) 97 06/27/17 15:21 Constitutional: Yes: Thin, Other (makes no real eye contact; does not speak; does not follow commands) Eyes: Yes: WNL HENT: Yes: WNL Neck: Yes: WNL Respiratory: Yes: Regular Gastrointestinal: Yes: Soft Renal/: Yes: Anuria Cardiovascular: Yes: Regular Rate and Rhythm JVD: No Carotid Bruit: No PMI: Non-Displaced Heart Sounds: Yes: S1, S2 Musculoskeletal: Yes: Muscle Weakness Edema: No Peripheral Pulses WNL: Yes Integumentary: Yes: WNL Neurological: Yes: Confusion, Weakness Psychiatric: Yes: Other (dementia) - Other Data Labs, Other Data: CBC, BMP 06/27/17 07:45 06/27/17 07:45 INR, PTT INR 0.97 (0.82-1.09) 06/26/17 13:25 Troponin, BNP 06/26/17 06/27/17 19:11 07:45 Troponin I 0.07 H 0.07 H Troponin, BNP 06/26/17 06/27/17 19:11 07:45 Troponin I 0.07 H 0.07 H Imaging - Results Chest X-ray: Image Reviewed (no acute pathology) EKG: Image Reviewed (NSR LAD) Problem List - Problems (1) Altered mental status Assessment/Plan: hx seizures. No acute changes on head CT. F/u with neurologist. Code(s): R41.82 - ALTERED MENTAL STATUS, UNSPECIFIED Qualifiers: Altered mental status type: transient alteration of awareness Qualified Code(s): R40.4 - Transient alteration of awareness (2) Confusion Code(s): R41.0 - DISORIENTATION, UNSPECIFIED (3) Dementia Code(s): F03.90 - UNSPECIFIED DEMENTIA WITHOUT BEHAVIORAL DISTURBANCE Qualifiers: Dementia type: Alzheimer's disease Alzheimer's disease onset: unspecified onset (4) Elevated troponin I level Assessment/Plan: Very mild increase in TNI, not reaching [place] levels; CK relative index is low. ECHO 10/2016: normal LVEF; likely diastolic compliance problem. F/u ECHO for wall motion. Code(s): R74.8 - ABNORMAL LEVELS OF OTHER SERUM ENZYMES (5) HTN (hypertension) Assessment/Plan: on ACEI and amlodipine. F/u ECHO for LVEF, wall thickness (LAD on EKG). Code(s): I10 - ESSENTIAL (PRIMARY) HYPERTENSION (6) Hx of seizure disorder Code(s): Z86.69 - PERSONAL HISTORY OF DIS OF THE NERVOUS SYS AND SENSE ORGANS (7) Urinary tract infection Assessment/Plan: r/o UTI Code(s): N39.0 - URINARY TRACT INFECTION, SITE NOT SPECIFIED Qualifiers: Urinary tract infection type: acute cystitis Hematuria presence: without hematuria Qualified Code(s): N30.00 - Acute cystitis without hematuria
[2017-06-27] MEDS ORDERED: HEPARIN NA (PORCINE) 5,000 UNITS/ML 1ML VIAL ONE (22:12)
[2017-06-27] MEDS: DONEPEZIL HCL 5 MG TABLET (FP) PO SCH (22:29)
[2017-06-28 01:58] VITALS: BMI 21.9
[2017-06-28] MEDS: GABAPENTIN 100 MG CAPSULE (FP) PO SCH ×4 (06:41→21:36)
[2017-06-28] MEDS: LEVOTHYROXINE NA 50 MCG TABLET (FP) PO SCH (06:41)
[2017-06-28 08:49] LABS: BASO % 0.9 % (0-2.0); EOS % 4.3 % (0-4.5); HEMATOCRIT 34.4 % (32.4-45.2); HEMOGLOBIN 11.3 GM/dL (10.7-15.3); LYMPH % 38.1 % (8-40); MCH 34.4 pg (25.7-33.7); MCHC 32.9 g/dl (32.0-36.0); MEAN CELL VOLUME 104.6 fl (80-96); MEAN PLT VOLUME 8.5 fl (7.5-11.1); MONO % 9.1 % (3.8-10.2); NEUT % 47.6 % (42.8-82.8); PLATELET COUNT 211 K/MM3 (134-434); RBC 3.29 M/mm3 (3.60-5.2); WHITE BLOOD COUNT 5.8 K/mm3 (4.0-10.0)
[2017-06-28 09:07] LABS: ALBUMIN 3.2 g/dl (3.4-5.0); ANION GAP 10 (8-16); BLOOD UREA NITROGEN 33 mg/dL (7-18); CALCIUM 7.9 mg/dL (8.5-10.1); CHLORIDE 108 mmol/L (98-107); CO2 22 mmol/L (21-32); CREATININE 1.4 mg/dL (0.55-1.02); GLUCOSE,RANDOM 90 mg/dL (74-106); POTASSIUM 4.2 mmol/L (3.5-5.1); SGOT/AST 17 U/L (15-37); SGPT/ALT 17 U/L (12-78); SODIUM 140 mmol/L (136-145)
[2017-06-28 09:08] LABS: CHOLESTEROL 138 mg/dL (50-200); TRIGLYCERIDES 102 mg/dL (35-160)
[2017-06-28 09:09] LABS: ALK PHOS 116 U/L (45-117); BILIRUBIN,TOTAL 0.5 mg/dL (0.2-1.0); TOT PROT 6.5 g/dl (6.4-8.2)
[2017-06-28 09:10] LABS: HDL CHOLESTEROL 55 mg/dL (40-60); LDL CHOLESTEROL (ONLY SJRH) 65 mg/dL (5-100)
[2017-06-28] MEDS: levETIRAcetam 500 MG TABLET (FP) PO SCH ×2 (09:52→21:36)
[2017-06-28] MEDS: valACYclovir HCL 500 MG TABLET (FP) PO SCH ×2 (09:52→10:00)
[2017-06-28] MEDS: amLODIPine BESYLATE 5 MG TABLET (FP) PO SCH (09:53)
[2017-06-28] MEDS: HEPARIN NA (PORCINE) 5,000 UNITS/ML 1ML VIAL SQ SCH ×2 (09:53→21:36)
[2017-06-28] MEDS: LISINOPRIL 10 MG TABLET (FP) PO SCH (09:53)
[2017-06-28] MEDS: PHENYTOIN 50 MG TAB.CHEW PO SCH (09:54)
[2017-06-28] MEDS: QUEtiapine FUMARATE 25 MG TABLET (FP) PO SCH ×2 (10:02→21:36)
--- NOTE | 2017-06-28 11:52 | PN ---
Progress Note (short form) - Note Progress Note: calmer no complains poor historian comfortable Vital Signs Temp 98 F 06/28/17 09:00 Pulse 72 06/28/17 09:00 Resp 20 06/28/17 09:00 BP 129/52 06/28/17 09:00 Pulse Ox 98 06/28/17 09:00 Intake & Output 06/27/17 06/27/17 06/28/17 11:59 23:59 11:59 Weight 112 lb 9.6 oz Other: Voiding Method Toilet Toilet # Unmeasured Voids Void 2 Height 5 ft Body Mass Index (BMI) 21.9 Weight Measurement Method Standing Scale Active Medications Amlodipine Besylate (Norvasc -) 5 mg PO DAILY [facility] Last Admin: 06/28/17 09:53 Dose: 5 mg Donepezil HCl (Aricept -) 5 mg PO HS [facility] Last Admin: 06/27/17 22:29 Dose: 5 mg Gabapentin (Neurontin -) 100 mg PO TID [facility] Last Admin: 06/28/17 06:41 Dose: 100 mg Heparin Sodium (Porcine) (Heparin -) 5,000 unit SQ BID [facility] Last Admin: 06/28/17 09:53 Dose: 5,000 unit Levetiracetam (Keppra -) 750 mg PO BID [facility] Last Admin: 06/28/17 09:52 Dose: 750 mg Levothyroxine Sodium (Synthroid -) 50 mcg PO DAILY@0700 [facility] Last Admin: 06/28/17 06:41 Dose: 50 mcg Lisinopril (Prinivil) 10 mg PO DAILY [facility] Last Admin: 06/28/17 09:53 Dose: 10 mg Phenytoin Sodium (Dilantin Chewable Tablet -) 50 mg PO DAILY [facility] Last Admin: 06/28/17 09:54 Dose: 50 mg Quetiapine Fumarate (Seroquel -) 25 mg PO BID [facility] Last Admin: 06/28/17 10:02 Dose: 25 mg Valacyclovir HCl (Valtrex -) 500 mg PO DAILY [facility] Last Admin: 06/28/17 10:00 Dose: Not Given CBC, BMP 06/28/17 06:00 06/28/17 06:00 Microbiology 06/26/17 16:00 Urine Culture - Preliminary Urine - Urine Clean Catch Group D Strep Or Entero Coccus 06/26/17 13:25 Blood Culture - Preliminary Blood - Peripheral Venous NO GROWTH OBTAINED AFTER 24 HOURS, INCUBATION TO CONTINUE FOR 4 DAYS. 06/26/17 13:25 Blood Culture - Preliminary Blood - Peripheral Venous NO GROWTH OBTAINED AFTER 24 HOURS, INCUBATION TO CONTINUE FOR 4 DAYS. Physical Examination Constitutional: Yes: Calm Eyes: Yes: Conjunctiva Clear HENT: Yes: Atraumatic Neck: Yes: Supple, Trachea Midline Cardiovascular: Yes: Regular Rate and Rhythm, S1, S2 Respiratory: Yes: Regular, CTA Bilaterally Gastrointestinal: Yes: Normal Bowel Sounds, Soft/ non tender Musculoskeletal: Yes: WNL Extremities: Yes: WNL Edema: No Neurological: Yes: Alert, Confusion, Cran Nerves II-XII Intact, Psychiatric: Yes: calm a/p ams +ve troponins-- ratio ok worsening of dementia- nessa continue present care echo neuro to follow will follow
--- NOTE | 2017-06-28 13:10 | EKG ---
Test Reason : Blood Pressure : / mmHG Vent. Rate : 073 BPM Atrial Rate : 073 BPM P-R Int : 160 ms QRS Dur : 086 ms QT Int : 454 ms P-R-T Axes : -11 -32 -84 degrees QTc Int : 500 ms SINUS RHYTHM WITH OCCASIONAL PREMATURE VENTRICULAR COMPLEXES LEFT AXIS DEVIATION T WAVE ABNORMALITY, CONSIDER LATERAL ISCHEMIA PROLONGED QT ABNORMAL ECG WHEN COMPARED WITH ECG OF 26-JUN-2017 13:11, PREMATURE VENTRICULAR COMPLEXES ARE NOW PRESENT T WAVE INVERSION NOW EVIDENT IN INFERIOR LEADS T WAVE INVERSION NOW EVIDENT IN ANTEROLATERAL LEADS QT HAS LENGTHENED Confirmed by ADAM PAPPAS MD ([id number]) on 06/28/2017 1:09:51 PM Referred By: Enedina RANDOLPH Confirmed By:ADAM PAPPAS MD
--- NOTE | 2017-06-28 15:40 | PN ---
Progress Note, Physician History of Present Illness: The patient is a 77-year-old female with a significant past medical history of seizure disorder, dementia (per daughter, pt usually reconizes family members), HTN, HLD, hypothyroidism, and hyponatremia, who presents to the emergency department with altered mental status for 3 days. As per daughter, the patient is confused, has dementia, and follows commands at baseline. She states the patient was complaining of a headache 3 days ago, and has been different since. As per daughter, the patient has been talking incoherently and hallucinating, such as going to her sister's room to throw holy water. Daughter states the patient has talked about her past during some previous epileptic episodes, but states this hallucination is new. Daughter states the patient has also been crying, eating less, and going to the bathroom less frequently. Denies chest pain, shortness of breath, dizziness. Denies fever, chills, nausea , vomit, diarrhea, and constipation. The patient denies dysuria, frequency, urgency and hematuria. Daughter states pt was able to walk short distances until recently, and did not complain of chest pain or shortness of breath. Allergies: hydromorphone, celebrex Past Surgical History: thyroidectomy, D&C hysterectomy Social History: No toxic habits reported PCP: Dr. Wylie - Current Medication List Current Medications: Active Medications Amlodipine Besylate (Norvasc -) 5 mg PO DAILY [facility] Last Admin: 06/28/17 09:53 Dose: 5 mg Donepezil HCl (Aricept -) 5 mg PO HS [facility] Last Admin: 06/27/17 22:29 Dose: 5 mg Gabapentin (Neurontin -) 100 mg PO TID [facility] Last Admin: 06/28/17 14:29 Dose: 100 mg Heparin Sodium (Porcine) (Heparin -) 5,000 unit SQ BID [facility] Last Admin: 06/28/17 09:53 Dose: 5,000 unit Levetiracetam (Keppra -) 750 mg PO BID [facility] Last Admin: 06/28/17 09:52 Dose: 750 mg Levothyroxine Sodium (Synthroid -) 50 mcg PO DAILY@0700 [facility] Last Admin: 06/28/17 06:41 Dose: 50 mcg Lisinopril (Prinivil) 10 mg PO DAILY [facility] Last Admin: 06/28/17 09:53 Dose: 10 mg Phenytoin Sodium (Dilantin Chewable Tablet -) 50 mg PO DAILY [facility] Last Admin: 06/28/17 09:54 Dose: 50 mg Quetiapine Fumarate (Seroquel -) 25 mg PO BID [facility] Last Admin: 06/28/17 10:02 Dose: 25 mg Valacyclovir HCl (Valtrex -) 500 mg PO DAILY [facility] Last Admin: 06/28/17 10:00 Dose: Not Given - Objective Vital Signs: Vital Signs Temperature 98 F 06/28/17 13:00 Pulse Rate 70 06/28/17 13:00 Respiratory Rate 20 06/28/17 13:00 Blood Pressure 130/60 06/28/17 13:00 O2 Sat by Pulse Oximetry (%) 98 06/28/17 09:00 Eyes: Yes: WNL, Conjunctiva Clear, EOM Intact HENT: Yes: WNL, Atraumatic, Normocephalic Neck: Yes: WNL, Supple, Trachea Midline Cardiovascular: Yes: WNL, Regular Rate and Rhythm Respiratory: Yes: WNL, Regular, CTA Bilaterally Gastrointestinal: Yes: WNL, Normal Bowel Sounds Genitourinary: Yes: WNL Musculoskeletal: Yes: WNL Extremities: Yes: WNL Edema: No Integumentary: Yes: WNL Neurological: Yes: WNL, Alert, Oriented ...Motor Strength: WNL Psychiatric: Yes: WNL Labs: CBC, BMP 06/28/17 06:00 06/28/17 06:00 INR, PTT INR 0.97 (0.82-1.09) 06/26/17 13:25 Assessment/Plan - Problems (1) Altered mental status Assessment/Plan: hx seizures. No acute changes on head CT. F/u with neurologist. Code(s): R41.82 - ALTERED MENTAL STATUS, UNSPECIFIED Qualifiers: Altered mental status type: transient alteration of awareness Qualified Code(s): R40.4 - Transient alteration of awareness (2) Confusion Code(s): R41.0 - DISORIENTATION, UNSPECIFIED (3) Dementia Code(s): F03.90 - UNSPECIFIED DEMENTIA WITHOUT BEHAVIORAL DISTURBANCE Qualifiers: Dementia type: Alzheimer's disease Alzheimer's disease onset: unspecified onset (4) Elevated troponin I level Assessment/Plan: Very mild increase in TNI, not reaching [place] levels; CK relative index is low. ECHO 10/2016: normal LVEF; likely diastolic compliance problem. F/u ECHO for wall motion. Code(s): R74.8 - ABNORMAL LEVELS OF OTHER SERUM ENZYMES (5) HTN (hypertension) Assessment/Plan: on ACEI and amlodipine. F/u ECHO for LVEF, wall thickness (LAD on EKG). Code(s): I10 - ESSENTIAL (PRIMARY) HYPERTENSION (6) Hx of seizure disorder Code(s): Z86.69 - PERSONAL HISTORY OF DIS OF THE NERVOUS SYS AND SENSE ORGANS (7) Urinary tract infection Assessment/Plan: r/o UTI Code(s): N39.0 - URINARY TRACT INFECTION, SITE NOT SPECIFIED Qualifiers: Urinary tract infection type: acute cystitis Hematuria presence: without hematuria Qualified Code(s): N30.00 - Acute cystitis without hematuria
[2017-06-28] MEDS ORDERED: ACETAMINOPHEN 500 MG TABLET (FP) PO PRN (20:13)
--- NOTE | 2017-06-28 20:19 | HOSP ---
Subjective - Review of Symptoms Events since last encounter: Hospitalist Encounter Notified by the primary nurse that the patient was complaining of knee pain. A/P 77 y/o woman admitted with confusion and hallucinations secondary to ?worsening Dementia. Physical Examination Vital Signs: Vital Signs Temperature 98.3 F 06/28/17 18:30 Pulse Rate 66 06/28/17 18:30 Respiratory Rate 20 06/28/17 18:30 Blood Pressure 104/53 06/28/17 18:30 O2 Sat by Pulse Oximetry (%) 98 06/28/17 09:00 Labs: CBC, BMP 06/28/17 06:00 06/28/17 06:00
[2017-06-28] MEDS: DONEPEZIL HCL 5 MG TABLET (FP) PO SCH (21:36)
[2017-06-29] MEDS: GABAPENTIN 100 MG CAPSULE (FP) PO SCH ×2 (06:06→14:49)
[2017-06-29] MEDS: LEVOTHYROXINE NA 50 MCG TABLET (FP) PO SCH (06:06)
[2017-06-29] MEDS: valACYclovir HCL 500 MG TABLET (FP) PO SCH (09:22)
[2017-06-29 10:19] VITALS: BP 130/63; PULSE 55; TEMP 98.1
[2017-06-29] MEDS: HEPARIN NA (PORCINE) 5,000 UNITS/ML 1ML VIAL SQ SCH (10:26)
[2017-06-29] MEDS: levETIRAcetam 500 MG TABLET (FP) PO SCH (10:26)
[2017-06-29] MEDS: PHENYTOIN 50 MG TAB.CHEW PO SCH (10:26)
[2017-06-29] MEDS: LISINOPRIL 10 MG TABLET (FP) PO SCH (10:28)
[2017-06-29] MEDS: amLODIPine BESYLATE 5 MG TABLET (FP) PO SCH (10:28)
[2017-06-29] MEDS: QUEtiapine FUMARATE 25 MG TABLET (FP) PO SCH (10:28)
--- NOTE | 2017-06-29 11:22 | PN ---
Progress Note (short form) - Note Progress Note: Vital Signs Temp 98.1 F 06/29/17 10:00 Pulse 55 L 06/29/17 10:00 Resp 19 06/29/17 10:00 BP 130/63 06/29/17 10:00 Pulse Ox 97 06/28/17 21:00 Intake & Output 06/28/17 06/28/17 06/29/17 11:59 23:59 11:59 Intake Total 200 250 Balance 200 250 Weight 112 lb 9.6 oz Intake: Oral 200 250 Other: Voiding Method Toilet Toilet Toilet # Unmeasured Voids Void 2 1 2 Bowel Movement No Yes # Bowel Movements 1 Height 5 ft Body Mass Index (BMI) 21.9 Weight Measurement Method Standing Scale Active Medications Acetaminophen (Tylenol -) 500 mg PO Q6H PRN PRN Reason: FEVER OR PAIN Last Admin: 06/28/17 20:32 Dose: 500 mg Amlodipine Besylate (Norvasc -) 5 mg PO DAILY [facility] Last Admin: 06/29/17 10:28 Dose: 5 mg Donepezil HCl (Aricept -) 5 mg PO HS [facility] Last Admin: 06/28/17 21:36 Dose: 5 mg Gabapentin (Neurontin -) 100 mg PO TID [facility] Last Admin: 06/29/17 06:06 Dose: 100 mg Heparin Sodium (Porcine) (Heparin -) 5,000 unit SQ BID [facility] Last Admin: 06/29/17 10:26 Dose: 5,000 unit Levetiracetam (Keppra -) 750 mg PO BID [facility] Last Admin: 06/29/17 10:26 Dose: 750 mg Levothyroxine Sodium (Synthroid -) 50 mcg PO DAILY@0700 [facility] Last Admin: 06/29/17 06:06 Dose: 50 mcg Lisinopril (Prinivil) 10 mg PO DAILY [facility] Last Admin: 06/29/17 10:28 Dose: 10 mg Phenytoin Sodium (Dilantin Chewable Tablet -) 50 mg PO DAILY [facility] Last Admin: 06/29/17 10:26 Dose: 50 mg Quetiapine Fumarate (Seroquel -) 25 mg PO BID [facility] Last Admin: 06/29/17 10:28 Dose: 25 mg Valacyclovir HCl (Valtrex -) 500 mg PO DAILY [facility] Last Admin: 06/29/17 09:22 Dose: Not Given CBC, BMP 06/28/17 06:00 06/28/17 06:00
--- NOTE | 2017-06-29 11:33 | DS ---
Physical Examination Vital Signs: Vital Signs Temperature 98.1 F 06/29/17 10:00 Pulse Rate 55 L 06/29/17 10:00 Respiratory Rate 19 06/29/17 10:00 Blood Pressure 130/63 06/29/17 10:00 O2 Sat by Pulse Oximetry (%) 97 06/28/17 21:00 Findings/Remarks: comfortable no complains Constitutional: Yes: No Distress, Calm Eyes: Yes: Conjunctiva Clear Neck: Yes: Supple Cardiovascular: Yes: Regular Rate and Rhythm Respiratory: Yes: CTA Bilaterally Gastrointestinal: Yes: Soft Edema: No Neurological: Yes: Other (awake/ poor historian) Labs: CBC, BMP 06/28/17 06:00 06/28/17 06:00 Discharge Summary Reason For Visit: ACUTE KIDNEY INJURY Hospital Course: This is a 76 yrs old female with pmhx seizure disorder, dementia, HTN, HLD, hypothyroidism, and hyponatremia, presented to the ED with AMS work up showed no acute pathology seen by psych and neuro [id number] with Dr. Baker today Symptoms felt to be worsening of dementia pt better now family wants to take home. overall stable will d/c home today meds reconcilled discussed with nursing staff also Condition: Improved - Instructions Disposition: HOME - Home Medications Comprehensive Discharge Medication List: Ambulatory Orders Amlodipine Besylate/Benazepril [Lotrel 5-10 mg Capsule] 1 each PO DAILY Atorvastatin Calcium 20 mg PO HS 10/09/16 Donepezil HCl [Aricept -] 5 mg PO DAILY 10/09/16 Gabapentin [Neurontin] 100 mg PO TID 10/09/16 Levothyroxine Sodium [Unithroid] 50 mcg PO DAILY 10/09/16 Phenytoin 50 mg PO DAILY 10/09/16 Calcium Carbonate/Vitamin D3 [Calcium 600-Vit D3 200 Tablet] 2 each PO DAILY 08/19 Phenytoin Sodium Extended [Phenytek] 200 mg PO DAILY 11/01/16 Valacyclovir HCl [Valtrex -] 500 mg PO DAILY 11/01/16 Acetaminophen [Tylenol .Regular Strength -] 650 mg PO Q4H PRN #0 tablet Alprazolam [Xanax] 0.25 mg PO PRN #30 amp 11/05/16 Levetiracetam [Keppra -] 750 mg PO BID tablet 11/05/16 Alendronate Na [Fosamax (Weekly)] 70 mg PO Q7D 06/26/17 Celecoxib [Celebrex] 200 mg PO BID PRN 06/26/17 Quetiapine Fumarate [Seroquel -] 25 mg PO BID 06/26/17 Lisinopril [Prinivil] 10 mg PO DAILY tablet 06/29/17
--- NOTE | 2017-06-29 12:36 | CON.NEURO ---
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) Cardio/Vascular: Yes: HTN, Hyperlipdemia Renal/: Yes: Renal Inusuff ...: No Psych: Yes: Other (dementia; now with further, acute change in mental status) Musculoskeletal: Yes: Other (generalized weakness) - Past Surgical History Past Surgical History: Yes: Hysterectomy Additional Surgical History: thyroidectomy - Alcohol/Substance Use Hx Alcohol Use: No - Smoking History Smoking history: Never smoked Have you smoked in the past 12 months: No Aproximately how many cigarettes per day: 0 - Social History Usual Living Arrangement: With Child ADL: Family Assistance Occupation: could not obtain social hx due to dementia Home Medications - Allergies Allergies/Adverse Reactions: Allergies Allergy/AdvReac Type Severity Reaction Status Date / Time hydromorphone HCl Allergy Mild Itching Verified 06/26/17 12:37 [From Dilaudid] - Home Medications Home Medications: Ambulatory Orders Amlodipine Besylate/Benazepril [Lotrel 5-10 mg Capsule] 1 each PO DAILY Atorvastatin Calcium 20 mg PO HS 10/09/16 Donepezil HCl [Aricept -] 5 mg PO DAILY 10/09/16 Gabapentin [Neurontin] 100 mg PO TID 10/09/16 Levothyroxine Sodium [Unithroid] 50 mcg PO DAILY 10/09/16 Phenytoin 50 mg PO DAILY 10/09/16 Calcium Carbonate/Vitamin D3 [Calcium 600-Vit D3 200 Tablet] 2 each PO DAILY 08/19 Phenytoin Sodium Extended [Phenytek] 200 mg PO DAILY 11/01/16 Valacyclovir HCl [Valtrex -] 500 mg PO DAILY 11/01/16 Acetaminophen [Tylenol .Regular Strength -] 650 mg PO Q4H PRN #0 tablet Alprazolam [Xanax] 0.25 mg PO PRN #30 amp 11/05/16 Levetiracetam [Keppra -] 750 mg PO BID tablet 11/05/16 Alendronate Na [Fosamax (Weekly)] 70 mg PO Q7D 06/26/17 Celecoxib [Celebrex] 200 mg PO BID PRN 06/26/17 Quetiapine Fumarate [Seroquel -] 25 mg PO BID 06/26/17 Lisinopril [Prinivil] 10 mg PO DAILY tablet 06/29/17 Physical Exam-Neuro Vital Signs: Vital Signs Temperature 98.1 F 06/29/17 10:00 Pulse Rate 55 L 06/29/17 10:00 Respiratory Rate 19 06/29/17 10:00 Blood Pressure 130/63 06/29/17 10:00 O2 Sat by Pulse Oximetry (%) 97 06/28/17 21:00 Labs: CBC, BMP 06/28/17 06:00 06/28/17 06:00 INR, PTT INR 0.97 (0.82-1.09) 06/26/17 13:25 Assessment/Plan cc Worsening of Dementia HPI 76 year old female history of epilepsy, HTN, HLD, Hypothyroidism, Depression.She is on dialntin 250 mg once a day, Keppra 750 mg po bid and seroquel . Patient came for worsenign of mental status. Patient has been having hallucination. She had ct scan , it was normal. She had b12,folate tsh . Those test were normal. She was interviewed along with her daughter and daughter feels she is slightly better. Patient is on seroquel 25 mg po bid and has been continue same dose, she was seen by psychiatrist during hospital staty Past Medical History as above SH,FH,ROS reviewed in chart Allergies/Adverse Reactions: Allergies Allergy/AdvReac Type Severity Reaction Status Date / Time hydromorphone HCl Allergy Mild Itching Verified 06/26/17 12:37 [From Dilaudid] - Home Medications Amlodipine Besylate/Benazepril [Lotrel 5-10 mg Capsule] 1 each PO DAILY Atorvastatin Calcium 20 mg PO HS 10/09/16 Donepezil HCl [Aricept -] 5 mg PO DAILY 10/09/16 Gabapentin [Neurontin] 100 mg PO TID 10/09/16 Levothyroxine Sodium [Unithroid] 50 mcg PO DAILY 10/09/16 Phenytoin 50 mg PO DAILY 10/09/16 Calcium Carbonate/Vitamin D3 [Calcium 600-Vit D3 200 Tablet] 2 each PO DAILY 08/19 Phenytoin Sodium Extended [Phenytek] 200 mg PO DAILY 11/01/16 Valacyclovir HCl [Valtrex -] 500 mg PO DAILY 11/01/16 Acetaminophen [Tylenol .Regular Strength -] 650 mg PO Q4H PRN #0 tablet Alprazolam [Xanax] 0.25 mg PO PRN #30 amp 11/05/16 Levetiracetam [Keppra -] 750 mg PO BID tablet 11/05/16 Alendronate Na [Fosamax] 70 mg PO Q7D 06/26/17 Celecoxib [Celebrex] 200 mg PO BID PRN 06/26/17 Quetiapine Fumarate [Seroquel -] 25 mg PO BID 06/26/17 Neurological Examination Alert oriented x 0 she told me she is in hospital( could not name hospital) able to follow command, swallow According to daughter her mental status has improved, she is more calmer but less talkative eomi, pupils is reactive no face asymmetry moving all extremity CT head is normal B12,Folate tsh were normal Assessment-- Worsening of Dementia, CT head is unremarkable, b12,foalte tsh. No evidence of stroke, meningitis or status epilepticus. There was no breakthrough seizure Plan-- Continue aricept, seroquel, dilantin and keppra - work up has been negative, no further recommendation, overall prognosis was discussed with family She would follow up with me as outpatient Thank you so much Benoit Strauss MD
== END 2017-06-29 15:00 | disposition home or self-care (01) | DRG 57 ==
LOC: JER 11:52 → INTOOBSV 17:40 → OBSVTOIN 17:40 → UNDOADMOB 17:40 → JERBED 17:40 → UNDOADMOB 17:51 → JERBED 17:51 → OBSVTOIN 17:51 → J4S 06-28 03:58
PROVIDERS: ADMIT Internal Medicine; ATTEND Internal Medicine
DX: G30.8 Other Alzheimer's disease (principal); G40.802 Other epilepsy, not intractable, without status epilepticus; E87.1 Hypo-osmolality and hyponatremia; F02.81 Dementia in other diseases classified elsewhere, unspecified severity, with behavioral disturbance; N17.9 Acute kidney failure, unspecified; N39.0 Urinary tract infection, site not specified; E03.9 Hypothyroidism, unspecified; I10 Essential (primary) hypertension; F41.8 Other specified anxiety disorders; E78.00 Pure hypercholesterolemia, unspecified; K21.9 Gastro-esophageal reflux disease without esophagitis; E86.0 Dehydration; D64.9 Anemia, unspecified; R44.1 Visual hallucinations
CPT/HCPCS: 36415; 70450-TC; 71010-TC; 80053; 80061; 81003; 81015; 82550; 82553; 82607; 82746; 82803; 83605; 83721; 83735; 83880; 84100; 84443; 84484; 85025; 85610; 85730; 86593; 86850; 86900; 86901; 87040; 87086; 87186; 93005; 93010; 93306-TC; 99285-25; J1644

== ENCOUNTER 2017-08-29 10:09 | Emergency (ER) | payer OTHER ==
[2017-08-29] MEDS ORDERED: SODIUM CHLORIDE 1,000 ML IV ONE (10:42)
--- NOTE | 2017-08-29 10:42 | PDOC ---
History of Present Illness - General History Source: Family Exam Limitations: Dementia - History of Present Illness Initial Comments: 08/29/17 11:23 The patient is a 77-year-old Bahamian-speaking female, with a significant past medical history of epilepsy, dementia, HTN, HLD, hypothyroidism, and hyponatremia, who presents to the emergency department with seizure x2 this morning. As per daughter, the patient was found by the home health aide at 6AM in her bed, convulsing. The patient appeared to be confused and was not responding to any commands. The patient had another epileptic episode at 8: 20AM. Daughter denies any vomiting, visual changes, or falls during these episodes, but she does report that the patient was incontinent with urine. As per daughter, the patient has been complaining of pain with urination, increased frequency, and suprapubic pain for some time now; she is currently not on any antibiotics. The patient is also complaining of a headache in the frontal region, dizziness, and bilateral leg pain that began two days ago. As per daughter, the patient is back to baseline while in the ED. She denies any recent changes in the patients seizure medications. Denies chest pain or shortness of breath. Denies fever, chills, nausea, vomiting , diarrhea, and constipation. Allergies: hydromorphone, celebrex Past Surgical History: thyroidectomy, D&C hysterectomy Social History: No reported tobacco, alcohol, or drug use. PCP: Dr. Wylie <Manda Tracey - Last Filed: 08/29/17 12:50> <Young Cr - Last Filed: 08/29/17 15:00> - General Chief Complaint: Seizure Stated Complaint: HEADACHE Time Seen by Provider: 08/29/17 10:13 Past History <Manda Tracey - Last Filed: 08/29/17 12:50> - Past Medical History Anemia: Yes Asthma: No Cancer: No Cardiac Disorders: No CVA: No COPD: No CHF: No Dementia: Yes Diabetes: No GI Disorders: Yes (reflux) Disorders: No HTN: Yes Hypercholesterolemia: Yes Liver Disease: No Psychiatric Problems: Yes (depression, ANXIETY.) Seizures: Yes (epilepsy) Thyroid Disease: Yes (HYPOTHYROID) - Surgical History Abdominal Surgery: No Appendectomy: No Cardiac Surgery: No Cholecystectomy: No Lung Surgery: No Neurologic Surgery: No Orthopedic Surgery: No - Reproductive History Cervical CA: No Dysfunctional Uterine Bleeding: No Ectopic : No Endometrial CA: No Polycystic Ovaries: No Tubal Ligation: No - Immunization History Immunization Up to Date: Yes - Suicide/Smoking/Psychosocial Hx Smoking Status: No Smoking History: Never smoked Have you smoked in the past 12 months: No Number of Cigarettes Smoked Daily: 0 Information on smoking cessation initiated: No Hx Alcohol Use: No Drug/Substance Use Hx: No Substance Use Type: None Hx Substance Use Treatment: No <Young Cr - Last Filed: 08/29/17 15:00> - Past Medical History Allergies/Adverse Reactions: Allergies Allergy/AdvReac Type Severity Reaction Status Date / Time hydromorphone HCl Allergy Mild Itching Verified 08/29/17 10:31 [From Dilaudid] Home Medications: Ambulatory Orders Amlodipine Besylate/Benazepril [Lotrel 5-10 mg Capsule] 1 each PO DAILY Atorvastatin Calcium 20 mg PO HS 10/09/16 Donepezil HCl [Aricept -] 5 mg PO DAILY 10/09/16 Gabapentin [Neurontin] 100 mg PO TID 10/09/16 Levothyroxine Sodium [Unithroid] 50 mcg PO DAILY 10/09/16 Phenytoin 50 mg PO DAILY 10/09/16 Calcium Carbonate/Vitamin D3 [Calcium 600-Vit D3 200 Tablet] 2 each PO DAILY 08/19 Phenytoin Sodium Extended [Phenytek] 200 mg PO DAILY 11/01/16 Valacyclovir HCl [Valtrex -] 500 mg PO DAILY 11/01/16 Acetaminophen [Tylenol .Regular Strength -] 650 mg PO Q4H PRN #0 tablet Alprazolam [Xanax] 0.25 mg PO PRN #30 amp 11/05/16 levETIRAcetam [Keppra -] 750 mg PO BID tablet 11/05/16 Alendronate Na [Fosamax (Weekly)] 70 mg PO Q7D 06/26/17 Celecoxib [Celebrex] 200 mg PO BID PRN 06/26/17 Quetiapine Fumarate [Seroquel -] 25 mg PO BID 06/26/17 Lisinopril [Prinivil] 10 mg PO DAILY tablet 06/29/17 Nitrofurantoin Monohyd/M-Cryst [Macrobid -] 100 mg PO BID #14 capsule 08/29/17 Review of Systems - Review of Systems Constitutional: Yes: Chills. No: Fever Respiratory: No: Cough, Shortness of Breath Cardiac (ROS): No: Chest Pain : Yes: Burning, Dysuria, Frequency Neurological: Yes: Headache, Seizure All Other Systems: Reviewed and Negative <TayoYoung - Last Filed: 08/29/17 15:00> *Physical Exam - Vital Signs Last Vital Signs Temp Pulse Resp BP Pulse Ox 98.2 F 66 17 131/55 97 08/29/17 11:08 08/29/17 10:20 08/29/17 10:20 08/29/17 10:20 08/29/17 10:20 - Physical Exam Comments: 08/29/17 11:25 GENERAL: The patient is awake, alert, and fully oriented, in no acute distress. HEAD: Normal with no signs of trauma. EYES: Pupils equal, round and reactive to light, extraocular movements intact, sclera anicteric, conjunctiva clear with no pallor. ENT: Ears normal, nares patent, oropharynx clear without exudates. Moist mucous membranes. NECK: Normal range of motion, supple without lymphadenopathy, JVD, or masses. LUNGS: Breath sounds equal, clear to auscultation bilaterally. No wheeze/ crackles. HEART: Regular rate and rhythm, normal S1 and S2 without murmur or rub. ABDOMEN: Soft/nontender/nondistended. BS wnl. No guarding or rebound. No palpable masses. No hepatosplenomegaly. EXTREMITIES: (+)Bilateral leg pain, tender to palpation, 2+ pitting edema bilaterally. No swelling, erythema, joint diffusions, or deformities. clubbing or cyanosis. No cords. NEUROLOGICAL: Cranial nerves II through XII grossly intact. PSYCH: Normal mood, normal affect. SKIN: Warm, Dry, normal turgor, no rashes or lesions noted. <Manda Tracey - Last Filed: 08/29/17 12:50> - Vital Signs Last Vital Signs Temp Pulse Resp BP Pulse Ox 98.2 F 66 17 131/55 97 08/29/17 10:20 08/29/17 10:20 08/29/17 10:20 08/29/17 10:20 08/29/17 10:20 <Young Cr - Last Filed: 08/29/17 15:00> Heart Score/ECG Review #1 ECG reviewed & interpreted by me at: 10:23 General ECG Interpretation: Sinus Rhythm, Normal Rate (68), Normal Intervals ( qtc 412), No acute ischemic changes (TWI I/AVL) Compared to previous ECG there are: No significant change (c/w 06/28/17) <Young Cr - Last Filed: 08/29/17 15:00> ED Treatment Course - LABORATORY CBC & Chemistry Diagram: 08/29/17 11:00 08/29/17 11:00 - ADDITIONAL ORDERS Additional order review: Laboratory Results 08/29/17 10:58 Urine Color Straw Urine Appearance Clear Urine pH 6.0 Ur Specific [place] 1.009 Urine Protein Negative Urine Glucose (UA) Negative Urine Ketones Negative Urine Blood Negative Urine Nitrite Negative Urine Bilirubin Negative Urine Urobilinogen Negative Ur Leukocyte Esterase Negative 08/29/17 11:00 RBC 3.42 L MCV 102.1 H MCHC 33.5 RDW 12.6 MPV 7.6 D Neutrophils % 64.2 D Lymphocytes % 26.3 D Monocytes % 7.1 Eosinophils % 1.3 Basophils % 1.1 - RADIOLOGY Radiology Studies Ordered: 08/29/17 12:[address] was reviewed by Dr. Cr and over-read by Radiology. Impression: No significant interval change. Cjun-is-[id number] volume loss that is more prominent in the high convexity and in the posterior fossa without evidence of acute intracranial pathology. Correlate clinically to determine further evaluation and follow-up. <Manda Tracey - Last Filed: 08/29/17 12:50> - LABORATORY CBC & Chemistry Diagram: 08/29/17 11:00 08/29/17 11:00 <Young Cr - Last Filed: 08/29/17 15:00> Medical Decision Making - Medical Decision Making 08/29/17 11:17 A portion of this note was documented by scribe services under my direction. I have reviewed the details of the note, within reason, and agree with the documentation with the following case summary and management plan written by me. 77-year-old female with history of multiple medical problems including seizures on Keppra and Dilantin presents with seizures 2 this morning. Witnessed by home health aide, had to self resolving typical generalized tonic-clonic seizures about 2-3 hours apart with return to baseline mental status in between. Positive urinary incontinence, mild postictal headache and confusion. Now back to baseline. Patient reports a few days of dysuria and frequency with suprapubic discomfort, chills but no measured fevers. Otherwise tolerating normal diet, no changes in her medications or doses. Patient complaining of bilateral leg discomfort for one to 2 days, denies any history of falls. Afebrile, vital signs normal. Alert, answering questions appropriately, following all commands Atraumatic Nonfocal neurological exam but limited range of motion of legs secondary to pain. Tender to palpation without obvious deformity or swelling or erythema. 2+ distal pulses. 77-year-old female with known seizure disorder presents with seizure 2 this morning, now returned to baseline without neurological defects. This occurs in the setting of headache and urinary symptoms, rule out bleed, question recent fall. Question UTI. Labs, urinalysis, urine culture Check CPK, check Keppra and Dilantin levels IV fluids CT head Reassess 08/29/17 13:46 Workup unremarkable, white count 3.6 with normal differential, chemistries within normal limits with baseline creatinine 1.2, urinalysis clear, Dilantin level therapeutic, Keppra level sent out and pending. CT head without acute pathology. Patient remains at her baseline, no further seizure activity at this time. Discussed with Dr. Wylie, agrees with plan to treat empirically for UTI based on her clinical symptoms and discharged home to follow-up in his office. She has an appointment with a neurologist pending. Daughter at bedside, she and patient agree with plan. 08/29/17 14:54 on my preliminary review of CXR, cardiomegaly without acute infiltrate. no acute change. <Young Cr - Last Filed: 08/29/17 15:00> *DC/Admit/Observation/Transfer - Attestations Scribe Attestion: 08/29/17 11:27 Documentation prepared by Manda Tracey, acting as medical transcription radiology for Young Cr MD. <Manda Tracey - Last Filed: 08/29/17 12:50> <Young Cr - Last Filed: 08/29/17 15:00> Diagnosis at time of Disposition: Seizure Qualifiers: Convulsion type: unspecified Qualified Code(s): R56.9 - Unspecified convulsions Urinary tract infection Qualifiers: Urinary tract infection type: acute cystitis Hematuria presence: without hematuria Qualified Code(s): N30.00 - Acute cystitis without hematuria - Discharge Dispostion Disposition: HOME Condition at time of disposition: Improved - Prescriptions Prescriptions: Nitrofurantoin Monohyd/M-Cryst [Macrobid -] 100 mg PO BID #14 capsule - Referrals Referrals: Stephen Wylie MD [Primary Care Provider] - - Patient Instructions Printed Discharge Instructions: DI for Seizure Disorder -- Adult, DI for Urinary Tract Infection (UTI) Additional Instructions: Activity as tolerated. Stay hydrated. Tylenol 1000 mg every 8 hours as needed for pain. Blood tests, a urine test, a CT scan of the head, and a CXR showed no acute abnormalities. Given the symptoms, we are treating a urine infection. Take Macrobid as prescribed. Continue your medications as previously prescribed by your physician. You should follow up with Dr. Wylie and a neurologist as soon as possible regarding today's emergency department visit. Return to the emergency department for any new or concerning symptoms, particularly fever, recurring seizures, weakness or confusion, inability to urinate.
[2017-08-29 10:47] VITALS: TEMP 98.2; BMI 21.4
[2017-08-29 11:12] LABS: URINE APPEARANCE CLEAR; URINE BILIRUBIN NEGATIVE (NEGATIVE); URINE BLOOD NEGATIVE (NEGATIVE); URINE COLOR STRAW; URINE GLUCOSE (UA) NEGATIVE (NEGATIVE); URINE KETONE NEGATIVE (NEGATIVE); URINE LEUK ESTERASE NEGATIVE (NEGATIVE); URINE NITRITE NEGATIVE (NEGATIVE); URINE PROTEIN NEGATIVE (NEGATIVE); URINE UROBILINOGEN NEGATIVE mg/dL (0.2-1.0)
[2017-08-29 11:19] LABS: BASO % 1.1 % (0-2.0); EOS % 1.3 % (0-4.5); HEMATOCRIT 34.9 % (32.4-45.2); HEMOGLOBIN 11.7 GM/dL (10.7-15.3); LYMPH % 26.3 % (8-40); MCH 34.2 pg (25.7-33.7); MCHC 33.5 g/dl (32.0-36.0); MEAN CELL VOLUME 102.1 fl (80-96); MEAN PLT VOLUME 7.6 fl (7.5-11.1); MONO % 7.1 % (3.8-10.2); NEUT % 64.2 % (42.8-82.8); PLATELET COUNT 247 K/MM3 (134-434); RBC 3.42 M/mm3 (3.60-5.2); RDW 12.6 % (11.6-15.6); WHITE BLOOD COUNT 3.6 K/mm3 (4.0-10.0)
[2017-08-29 11:24] LABS: INR 0.96 (0.82-1.09); PROTHROMBIN TIME (PATIENT) 10.8 SEC (9.98-11.88)
[2017-08-29 11:30] VITALS: BP 122/55; PULSE 67
[2017-08-29 11:50] LABS: ALBUMIN 3.7 g/dl (3.4-5.0); ANION GAP 8 (8-16); BILIRUBIN,TOTAL 0.3 mg/dL (0.2-1.0); BLOOD UREA NITROGEN 21 mg/dL (7-18); CALCIUM 8.2 mg/dL (8.5-10.1); CHLORIDE 106 mmol/L (98-107); CO2 24 mmol/L (21-32); CREATININE 1.2 mg/dL (0.55-1.02); GLUCOSE,RANDOM 108 mg/dL (74-106); POTASSIUM 4.9 mmol/L (3.5-5.1); SGOT/AST 17 U/L (15-37); SGPT/ALT 15 U/L (12-78); SODIUM 138 mmol/L (136-145); TOT PROT 7.6 g/dl (6.4-8.2)
[2017-08-29 11:53] LABS: ALK PHOS 131 U/L (45-117)
[2017-08-29] MEDS ORDERED: ACETAMINOPHEN 1000 MG/100 ML VIAL (NON FORMULARY) IVPB ONE (13:42)
[2017-08-29] MEDS ORDERED: CEFTRIAXONE 1 GM in DEXTROSE 5%-WATER - 50 ML IVPB ONE (13:42)
[2017-08-29] MEDS ORDERED: ACETAMINOPHEN INJECTION 100 ML IVPB ONE (13:50)
[2017-08-29] MEDS ORDERED: CEFTRIAXONE 1 GM/50 ML BAG ONE (13:50)
--- NOTE | 2017-08-29 15:07 | EKG ---
Test Reason : Blood Pressure : / mmHG Vent. Rate : 068 BPM Atrial Rate : 068 BPM P-R Int : 192 ms QRS Dur : 094 ms QT Int : 388 ms P-R-T Axes : -05 -32 082 degrees QTc Int : 412 ms NORMAL SINUS RHYTHM LEFT AXIS DEVIATION NONSPECIFIC T WAVE ABNORMALITY ABNORMAL ECG WHEN COMPARED WITH ECG OF 28-JUN-2017 10:36, PREMATURE VENTRICULAR COMPLEXES ARE NO LONGER PRESENT T WAVE INVERSION NO LONGER EVIDENT IN INFERIOR LEADS T WAVE INVERSION LESS EVIDENT IN ANTEROLATERAL LEADS QT HAS SHORTENED Confirmed by MD Ney, Nicolas ([id number]) on 08/29/2017 3:07:18 PM Referred By: Confirmed By:Nicolas Brewster MD
== END 2017-08-29 15:32 | disposition home or self-care (01) ==
LOC: JER 10:09
PROC: 3E0337Z Introduction of Electrolytic and Water Balance Substance into Peripheral Vein, Percutaneous Approach (ICD-10-PCS; principal; 2017-08-29)
PROC: 3E03329 Introduction of Other Anti-infective into Peripheral Vein, Percutaneous Approach (ICD-10-PCS; 2017-08-29)
PROC: 3E033NZ Introduction of Analgesics, Hypnotics, Sedatives into Peripheral Vein, Percutaneous Approach (ICD-10-PCS; 2017-08-29)
DX: N30.00 Acute cystitis without hematuria (principal); G40.909 Epilepsy, unspecified, not intractable, without status epilepticus; I10 Essential (primary) hypertension; E78.00 Pure hypercholesterolemia, unspecified; E03.9 Hypothyroidism, unspecified; E87.1 Hypo-osmolality and hyponatremia; F41.8 Other specified anxiety disorders; F03.90 Unspecified dementia, unspecified severity, without behavioral disturbance, psychotic disturbance, mood disturbance, and anxiety
CPT/HCPCS: 36415; 70450-TC; 71045-TC-FY; 80053; 80185; 81003; 82550; 84484; 85025; 85610; 87086; 93005; 93010; 96361; 96365; 96375; 99283-25

== ENCOUNTER 2017-09-26 09:50 | Emergency (ER) | payer OTHER ==
[2017-09-26 10:26] VITALS: BP 130/52; PULSE 64; TEMP 98.3; BMI 23.4
--- NOTE | 2017-09-26 10:38 | PDOC ---
History of Present Illness - General Chief Complaint: Seizure Stated Complaint: ADB PAIN Time Seen by Provider: 09/26/17 09:57 History Source: Patient, Other (daughter) Exam Limitations: Dementia - History of Present Illness Initial Comments: 09/26/17 10:53 77-year-old female presents to the ED status post seizure activity. As per daughter patient started to have generalized tremors while in the bed followed by one episode of vomiting. I palpated call the ambulance and when they arrived patient was slightly post ictal complaining of mild frontal headache along with lower abdominal pain. As per daughter patient had recent adjustment in for Keppra and Dilantin 3 weeks ago and had her last seizure August 27 which lasted for several minutes versus today's episode only lasting seconds. Patient has no other complaints at this time including chest pain, shortness of breath, visual changes, dizziness, or weakness. Daughter denies recent infection, recent change in diet, or recent illness. Timing/Duration: resolved prior to arrival Severity: moderate Associated Symptoms: reports: nausea/vomiting, seizure Past History - Travel Traveled outside of the country in the last 30 days: No - Past Medical History Allergies/Adverse Reactions: Allergies Allergy/AdvReac Type Severity Reaction Status Date / Time hydromorphone HCl Allergy Mild Itching Verified 09/26/17 10:23 [From Dilaudid] Home Medications: Ambulatory Orders Amlodipine Besylate/Benazepril [Lotrel 5-10 mg Capsule] 1 each PO DAILY Atorvastatin Calcium 20 mg PO HS 10/09/16 Donepezil HCl [Aricept -] 10 mg PO DAILY 10/09/16 Gabapentin [Neurontin] 100 mg PO BID 10/09/16 Levothyroxine Sodium [Unithroid] 50 mcg PO DAILY 10/09/16 Calcium Carbonate/Vitamin D3 [Calcium 600-Vit D3 200 Tablet] 2 each PO DAILY 08/19 Phenytoin Sodium Extended [Phenytek] 100 mg PO DAILY 11/01/16 Acetaminophen [Tylenol .Regular Strength -] 650 mg PO Q4H PRN #0 tablet Alprazolam [Xanax] 0.25 mg PO PRN #30 amp 11/05/16 Alendronate Na [Fosamax (Weekly)] 70 mg PO Q7D 06/26/17 Celecoxib [Celebrex] 200 mg PO BID PRN 06/26/17 Quetiapine Fumarate [Seroquel -] 25 mg PO BID 06/26/17 Lisinopril [Prinivil] 10 mg PO DAILY tablet 06/29/17 Ergocalciferol [Drisdol Oral Solution -] 1.25 mg PO DAILY 09/26/17 Memantine HCl 5 mg PO BID 09/26/17 Nabumetone 500 mg PO BID 09/26/17 levETIRAcetam [Keppra -] 1,000 mg PO BID 09/26/17 Anemia: Yes Asthma: No Cancer: No Cardiac Disorders: No CVA: No COPD: No CHF: No DVT: No Dementia: Yes Diabetes: No GI Disorders: Yes (reflux) Disorders: No HTN: Yes Hypercholesterolemia: Yes Liver Disease: No Psychiatric Problems: Yes (depression, ANXIETY.) Seizures: Yes (epilepsy) Thyroid Disease: Yes (HYPOTHYROID) - Surgical History Abdominal Surgery: No Appendectomy: No Cardiac Surgery: No Cholecystectomy: No Lung Surgery: No Neurologic Surgery: No Orthopedic Surgery: No - Reproductive History Cervical CA: No Dysfunctional Uterine Bleeding: No Ectopic : No Endometrial CA: No Polycystic Ovaries: No Tubal Ligation: No - Immunization History Immunization Up to Date: Yes - Suicide/Smoking/Psychosocial Hx Smoking Status: No Smoking History: Never smoked Have you smoked in the past 12 months: No Number of Cigarettes Smoked Daily: 0 Information on smoking cessation initiated: No Hx Alcohol Use: No Drug/Substance Use Hx: No Substance Use Type: None Hx Substance Use Treatment: No Patient Lives Alone: No Lives with/in: daughter and [employer] Review of Systems - Review of Systems Able to Perform ROS?: Yes Constitutional: No: Symptoms Reported HEENTM: No: Symptoms Reported Respiratory: No: Symptoms reported Cardiac (ROS): No: Symptoms Reported ABD/GI: Yes: Vomiting (x 1) : No: Symptoms Reported Musculoskeletal: No: Symptoms Reported Integumentary: No: Symptoms Reported Neurological: Yes: Headache, Seizure *Physical Exam - Vital Signs Last Vital Signs Temp Pulse Resp BP Pulse Ox 98.3 F 64 18 130/52 99 09/26/17 10:23 09/26/17 10:23 09/26/17 10:23 09/26/17 10:23 09/26/17 10:23 - Physical Exam General Appearance: Yes: Nourished, Appropriately Dressed. No: Apparent Distress HEENT: positive: Pharynx Normal. negative: Pale Conjunctivae Neck: positive: Supple. negative: Tender, Decreased range of motion Respiratory/Chest: positive: Lungs Clear, Normal Breath Sounds. negative: Respiratory Distress, Accessory Muscle Use Cardiovascular: positive: Regular Rhythm, Regular Rate. negative: Murmur Gastrointestinal/Abdominal: positive: Soft. negative: Tenderness Extremity: positive: Normal Capillary Refill. negative: Pedal Edema Integumentary: positive: Normal Color, Warm, Moist Neurologic: positive: Normal Mood/Affect, Motor Strength 11/04 ED Treatment Course - LABORATORY CBC & Chemistry Diagram: 09/26/17 11:00 09/26/17 11:00 - RADIOLOGY Radiology Studies Ordered: Category Date Time Status CHEST X-RAY PORTABLE* [RAD] Stat Radiology 09/26/17 10:30 Ordered Medical Decision Making - Medical Decision Making 09/26/17 11:02 Patient here for evaluation of seizure activity. Patient history of seizure a approximately 3 weeks ago had her Keppra and Dilantin adjusted. As per daughter she had generalized tremors followed by one episode of vomiting. Daughter states length episode lasted approximately 1 minute. On exam patient had no acute findings. Patient does complain of headache which follows her seizure activity unchanged from previous episode Patient ordered for labs, urine, chest x-ray and given breakfast as per her request . 09/26/17 13:19 Chest x-ray shows a possible interval development of a small focus of atelectasis versus infiltrate within the left lower lobe adjacent to the costophrenic sulcus. Patient on exam had no respiratory concerns or respiratory complaints. Patient with no change in vital signs or elevated white count. Due to the low level of Dilantin. Patient will be given 100 by mouth. Patient will be discharged home and told to follow up with a neurologist this week to have repeat labs and exam Laboratory Tests 09/26/17 09/26/17 09/26/17 11:00 11:00 11:00 WBC 5.2 D Hgb 11.9 Hct 34.4 MCV 101.2 H MCH 34.9 H Plt Count 266 Neutrophils % 66.0 Sodium 139 Potassium 4.9 Chloride 108 H Carbon Dioxide 26 Anion Gap 5 L BUN 27 H Creatinine 1.3 H Creat Clearance w eGFR 39.93 Random Glucose 108 H Calcium 9.0 Total Bilirubin 0.2 D AST 15 ALT 17 Alkaline Phosphatase 148 H Total Protein 7.7 Albumin 3.7 Urine Blood Urine Nitrite Ur Leukocyte Esterase Urine RBC (Auto) Phenytoin Levetiracetam Pending 09/26/17 09/26/17 11:00 12:00 WBC Hgb Hct MCV MCH Plt Count Neutrophils % Sodium Potassium Chloride Carbon Dioxide Anion Gap BUN Creatinine Creat Clearance w eGFR Random Glucose Calcium Total Bilirubin AST ALT Alkaline Phosphatase Total Protein Albumin Urine Blood 1+ H Urine Nitrite Negative Ur Leukocyte Esterase Negative Urine RBC (Auto) 2 Phenytoin 8.4 L D Levetiracetam *DC/Admit/Observation/Transfer Diagnosis at time of Disposition: Seizure - Discharge Dispostion Disposition: HOME Condition at time of disposition: Good - Referrals Referrals: Stephen Wylie MD [Primary Care Provider] - - Patient Instructions Printed Discharge Instructions: DI for Seizure Disorder -- Adult Additional Instructions: Please follow-up with a neurologist this week as her Dilantin level was low here in the emergency room and she was given an additional dose of Dilantin ( 100 mg). Otherwise if she develops symptoms of confusion seizure-like activity, or weakness please return to the nearest ED. - Post Discharge Activity
[2017-09-26 11:09] LABS: BASO % 0.7 % (0-2.0); EOS % 1.7 % (0-4.5); HEMATOCRIT 34.4 % (32.4-45.2); HEMOGLOBIN 11.9 GM/dL (10.7-15.3); LYMPH % 24.7 % (8-40); MCH 34.9 pg (25.7-33.7); MCHC 34.5 g/dl (32.0-36.0); MEAN CELL VOLUME 101.2 fl (80-96); MEAN PLT VOLUME 7.8 fl (7.5-11.1); MONO % 6.9 % (3.8-10.2); PLATELET COUNT 266 K/MM3 (134-434); RDW 12.7 % (11.6-15.6); WHITE BLOOD COUNT 5.2 K/mm3 (4.0-10.0)
[2017-09-26 11:33] LABS: ALBUMIN 3.7 g/dl (3.4-5.0); ALK PHOS 148 U/L (45-117); ANION GAP 5 (8-16); BILIRUBIN,TOTAL 0.2 mg/dL (0.2-1.0); BLOOD UREA NITROGEN 27 mg/dL (7-18); CHLORIDE 108 mmol/L (98-107); CO2 26 mmol/L (21-32); CREATININE 1.3 mg/dL (0.55-1.02); GLUCOSE,RANDOM 108 mg/dL (74-106); POTASSIUM 4.9 mmol/L (3.5-5.1); SGOT/AST 15 U/L (15-37); SGPT/ALT 17 U/L (12-78); SODIUM 139 mmol/L (136-145); TOT PROT 7.7 g/dl (6.4-8.2)
[2017-09-26 12:15] LABS: URINE APPEARANCE SLCLOUDY; URINE BILIRUBIN NEGATIVE (<2.0 mg/dL); URINE BLOOD 1+ (NEGATIVE); URINE COLOR YELLOW; URINE GLUCOSE (UA) NEGATIVE (NEGATIVE); URINE KETONE NEGATIVE (NEGATIVE); URINE LEUK ESTERASE NEGATIVE (NEGATIVE); URINE NITRITE NEGATIVE (NEGATIVE); URINE PROTEIN NEGATIVE (NEGATIVE); URINE UROBILINOGEN NEGATIVE mg/dL (0.2-1.0)
[2017-09-26 12:24] LABS: EPI CELLS RARE /HPF (FEW); URINE MUCUS RARE
[2017-09-26] MEDS ORDERED: PHENYTOIN SODIUM 100 MG/2 ML VIAL IVPB ONE (13:11)
[2017-09-26] MEDS ORDERED: PHENYTOIN NA EXTENDED 100 MG CAPSULE (FP) PO ONE (13:17)
[2017-09-26] MEDS ORDERED: PHENYTOIN NA EXTENDED 100 MG CAPSULE (FP) ONE (13:47)
--- NOTE | 2017-09-26 16:54 | EKG ---
Test Reason : Blood Pressure : / mmHG Vent. Rate : 060 BPM Atrial Rate : 060 BPM P-R Int : 200 ms QRS Dur : 090 ms QT Int : 436 ms P-R-T Axes : 019 -28 077 degrees QTc Int : 436 ms NORMAL SINUS RHYTHM Lateral t wave abnormalities WHEN COMPARED WITH ECG OF 29-AUG-2017 10:23, NO SIGNIFICANT CHANGE WAS FOUND Confirmed by MD Josse, Ed ([id number]) on 09/26/2017 4:53:54 PM Referred By: Confirmed By:Ed Loaiza MD
== END 2017-09-26 14:07 | disposition home or self-care (01) ==
LOC: JER 09:50
DX: G40.909 Epilepsy, unspecified, not intractable, without status epilepticus (principal); I10 Essential (primary) hypertension; K21.9 Gastro-esophageal reflux disease without esophagitis; E03.9 Hypothyroidism, unspecified; E78.00 Pure hypercholesterolemia, unspecified; F41.9 Anxiety disorder, unspecified; F32.9 Major depressive disorder, single episode, unspecified
CPT/HCPCS: 36415; 71045-TC-FY; 80053; 80185; 81003; 81015; 85025; 87086; 93005; 93010; 99284-25

== ENCOUNTER 2017-12-19 11:07 | Inpatient (IN) | payer OTHER ==
--- NOTE | 2017-12-19 11:26 | PDOC ---
History of Present Illness <Young Cr - Last Filed: 12/19/17 14:36> - General History Source: Patient, EMS, Family - History of Present Illness Initial Comments: 12/19/17 11:50 The patient is a 77 year old female brought in by EMS, accompanied with her daughter, with a significant past medical history of hypertension, hyperlipidemia, epilepsy, seizure disorder, UTIs, anemia, and anxiety, who presents to the emergency department for evaluation of altered mental status since last night. As per EMS, the patients aide was found this morning covered in urine and non verbal which prompted her visit to the ED for further evaluation. The patients daughter reports the patient called her at 7pm yesterday, but did not verbally answer back on the phone, prompting the daughter to send a family member to come check on her and give her medication prior to leaving. As per the patients daughter, the patients last known well was 5pm yesterday. The patient reports a moderate frontal headache without radiation. She also reports a few days of burning upon urination and urinary urgency. Of note, the patients daughter reports the patients PCP lowered the dose of Dilantin 2 months ago. The patients daughter states the patient usually becomes nonverbal after a seizure episode. At presentation, the patient is alert, but non verbal to questions. The patient denies chest pain, shortness of breath, fevers, chills, nausea, diarrhea, and hematuria. Allergies: Hydromorphone HCl Past surgical history: Patient denies. Social history: No reported cigarette, alcohol, or drug use. PCP: Dr. Wylie Neurologist: Dr. Strauss <Shayy Rivas - Last Filed: 12/19/17 15:22> - General Chief Complaint: Altered Mental Status Stated Complaint: AMS/UTI Time Seen by Provider: 12/19/17 11:22 Past History - Past Medical History Anemia: Yes Asthma: No Cancer: No Cardiac Disorders: No CVA: No COPD: No CHF: No DVT: No Dementia: Yes Diabetes: No GI Disorders: Yes (reflux) Disorders: No HTN: Yes Hypercholesterolemia: Yes Liver Disease: No Psychiatric Problems: Yes (depression, ANXIETY.) Seizures: Yes (epilepsy) Thyroid Disease: Yes (HYPOTHYROID) - Surgical History Abdominal Surgery: No Appendectomy: No Cardiac Surgery: No Cholecystectomy: No Lung Surgery: No Neurologic Surgery: No Orthopedic Surgery: No - Reproductive History Cervical CA: No Dysfunctional Uterine Bleeding: No Ectopic : No Endometrial CA: No Polycystic Ovaries: No Tubal Ligation: No - Immunization History Immunization Up to Date: Yes - Suicide/Smoking/Psychosocial Hx Smoking Status: No Smoking History: Never smoked Have you smoked in the past 12 months: No Number of Cigarettes Smoked Daily: 0 Hx Alcohol Use: No Drug/Substance Use Hx: No Substance Use Type: None Hx Substance Use Treatment: No <Young Cr - Last Filed: 12/19/17 14:36> <Shayy Rivas - Last Filed: 12/19/17 15:22> - Past Medical History Allergies/Adverse Reactions: Allergies Allergy/AdvReac Type Severity Reaction Status Date / Time hydromorphone HCl Allergy Mild Itching Verified 12/19/17 11:27 [From Dilaudid] Home Medications: Ambulatory Orders Alprazolam 0.25 mg PO DAILY PRN 12/19/17 Amlodipine Besylate/Benazepril [Lotrel 5-10 mg Capsule] 1 each PO DAILY Atorvastatin Calcium 20 mg PO HS 12/19/17 Calcium Carbonate/Vitamin D3 [Calcium 600 + Vit D Tablet] 1 each PO BID Celecoxib 200 mg PO BID 12/19/17 Donepezil HCl 10 mg PO DAILY 12/19/17 Gabapentin [Neurontin -] 100 mg PO BID 12/19/17 Levothyroxine [Synthroid -] 50 mcg PO DAILY 12/19/17 Nabumetone 500 mg PO DAILY 12/19/17 Phenytoin Oral Suspension [Dilantin Oral Suspension 100 MG/4 ML] 100 mg PO DAILY 12/19/17 Quetiapine Fumarate [Seroquel -] 25 mg PO HS 12/19/17 levETIRAcetam [Keppra -] 1,000 mg PO BID 12/19/17 Review of Systems - Review of Systems Constitutional: No: Chills, Fever Respiratory: No: Cough, Shortness of Breath Cardiac (ROS): No: Chest Pain, Syncope ABD/GI: No: Nausea, Vomiting : Yes: Dysuria, Frequency Neurological: Yes: Headache All Other Systems: Reviewed and Negative <Young Cr - Last Filed: 12/19/17 14:36> *Physical Exam - Vital Signs Last Vital Signs Temp Pulse Resp BP Pulse Ox 98.1 F 64 18 120/57 98 12/19/17 11:20 12/19/17 11:20 12/19/17 11:20 12/19/17 11:20 12/19/17 11:20 - Physical Exam Comments: GENERAL: The patient is awake, alert, and oriented. HEAD: Normal with no signs of trauma. EYES: Pupils equal, round and reactive to light, extraocular movements intact, sclera anicteric, conjunctiva clear with no pallor. ENT: Ears normal, nares patent, oropharynx clear without exudates. Moist mucous membranes. NECK: Normal range of motion, supple. LUNGS: Breath sounds equal, clear to auscultation bilaterally. No wheeze/ crackles. HEART: Regular rate and rhythm, normal S1 and S2 without murmur or rub. ABDOMEN: Soft/nontender/nondistended. BS wnl. No guarding or rebound. No palpable masses. EXTREMITIES: Normal range of motion, no edema. No clubbing or cyanosis. No cords, erythema, or tenderness. NEUROLOGICAL: (+)Nonverbal. Cranial nerves II through XII grossly intact. PSYCH: Normal mood, normal affect. SKIN: Warm, Dry, normal turgor, no rashes or lesions noted. <Shayy Rivas - Last Filed: 12/19/17 15:22> Heart Score/ECG Review #1 ECG reviewed & interpreted by me at: 11:17 General ECG Interpretation: Sinus Rhythm, Normal Rate (59), Normal Intervals ( qtc 417), No acute ischemic changes (TWI I/AVL) Compared to previous ECG there are: No significant change (c/w 09/27/17) <Young Cr - Last Filed: 12/19/17 14:36> ED Treatment Course - LABORATORY CBC & Chemistry Diagram: 12/19/17 11:45 12/19/17 11:45 <Young Cr - Last Filed: 12/19/17 14:36> - LABORATORY CBC & Chemistry Diagram: 12/19/17 11:45 12/19/17 11:45 <Shayy Rivas - Last Filed: 12/19/17 15:22> Medical Decision Making - Medical Decision Making 12/19/17 11:43 A portion of this note was documented by scribe services under my direction. I have reviewed the details of the note, within reason, and agree with the documentation with the following case summary and management plan written by me. 77-year-old female with history of hypertension, seizure disorder on Dilantin with recently adjusted doses about one month ago, history of UTI presents with EMS after home health aide found her confused and weak this morning. Patient was last seen normal at 5 PM yesterday by her daughter, who is at bedside. When she called her around 7 PM, the patient was not speaking but she answered the phone. A family member check on her, was admittedly weak appearing so she was given her medications and presumably self night. This morning, home health aide found her in bed confused and weak having had urinary incontinence and nonverbal. Currently, patient is complaining of some frontal headache, nods yes when asked if she had a seizure, and is complaining of several days of dysuria and urinary frequency. Vital signs are normal, afebrile, glucose normal Head is atraumatic Neurological exam is nonfocal She has some suprapubic discomfort to palpation She is not speaking but is appropriately following all commands and occasionally says yes/no 77-year-old female with altered mental status, possibly postictal in the setting of UTI. Nonfocal neurological exam, afebrile without evidence of SIRS or sepsis. CT head Labs including dilantin level, urinalysis, urine culture IV fluids reassess. Likely admission 12/19/17 13:12 wbc normal, UA clear. Na 124, trop negative. dilantin level pending. awaiting ct head. otherwise improved and ambulating steadily. 12/19/17 14:03 dilantin level not detectable, so will dilantin load. CT, on my prelim review, shows no TBI. Will admit for seizure monitoring and hypoNa, Suleman called, covering Dejan. Dr. Strauss, pt's neurologist, consulted. 12/19/17 14:[address] Strauss -- converting to Keppra so will load with Keppra, not Dilantin. Will see pt, agrees with admission. Awaiting callback from Dr. Lang. <Young Cr - Last Filed: 12/19/17 14:36> - Medical Decision Making Case discussed with Dr. Strauss at 14:19, transitioning from [facility] to [facility] , agrees with admission. 12/19/17 14:[address] Impression: No significant interval change. Mild volume loss and periventricular chronic microvascular ischemic disease changes without evidence of acute intracranial pathology. 12/19/[address] Lang at 14:00. Second page to Dr. Lang at 14:25. Third page to Dr. Lang at 14:54, awaiting call back. 12/19/17 15:[address] Lang at 15:19, who accepts patient for inpatient Med- Surg. <Shayy Rivas - Last Filed: 12/19/17 15:22> *DC/Admit/Observation/Transfer <Young Cr - Last Filed: 12/19/17 14:36> - Attestations Scribe Attestion: Documentation prepared by Shayy Rivas, acting as manager of medical for Young Cr MD. <Shayy Rivas - Last Filed: 12/19/17 15:22> Diagnosis at time of Disposition: Altered mental status Qualifiers: Altered mental status type: transient alteration of awareness Qualified Code(s) : R40.4 - Transient alteration of awareness - Discharge Dispostion Condition at time of disposition: Fair - Referrals Referrals: Stephen Wylie MD [Primary Care Provider] -
[2017-12-19 11:27] VITALS: BMI 23.4
[2017-12-19] MEDS ORDERED: SODIUM CHLORIDE 1,000 ML IV ONE ×2 (11:37→14:12)
[2017-12-19 12:03] LABS: BASO % 0.5 % (0-2.0); EOS % 0.3 % (0-4.5); HEMATOCRIT 33.6 % (32.4-45.2); HEMOGLOBIN 11.6 GM/dL (10.7-15.3); LYMPH % 16.4 % (8-40); MCH 33.8 pg (25.7-33.7); MCHC 34.4 g/dl (32.0-36.0); MEAN CELL VOLUME 98.2 fl (80-96); MEAN PLT VOLUME 7.8 fl (7.5-11.1); MONO % 6.9 % (3.8-10.2); NEUT % 75.9 % (42.8-82.8); PLATELET COUNT 240 K/MM3 (134-434); RBC 3.42 M/mm3 (3.60-5.2); RDW 12.4 % (11.6-15.6); WHITE BLOOD COUNT 4.9 K/mm3 (4.0-10.0)
[2017-12-19 12:16] LABS: INR 0.97 (0.82-1.09)
[2017-12-19 12:32] LABS: ALBUMIN 3.4 g/dl (3.4-5.0); ALK PHOS 102 U/L (45-117); ANION GAP 9 (8-16); BILIRUBIN,TOTAL 0.4 mg/dL (0.2-1.0); BLOOD UREA NITROGEN 22 mg/dL (7-18); CALCIUM 8.1 mg/dL (8.5-10.1); CHLORIDE 91 mmol/L (98-107); CO2 24 mmol/L (21-32); GLUCOSE,RANDOM 105 mg/dL (74-106); POTASSIUM 5.1 mmol/L (3.5-5.1); SGOT/AST 24 U/L (15-37); SGPT/ALT 20 U/L (12-78); TOT PROT 7.4 g/dl (6.4-8.2)
[2017-12-19 12:38] LABS: SODIUM 124 mmol/L (136-145)
[2017-12-19 12:40] LABS: URINE APPEARANCE CLEAR; URINE BILIRUBIN NEGATIVE (<2.0 mg/dL); URINE COLOR STRAW; URINE GLUCOSE (UA) NEGATIVE (NEGATIVE); URINE KETONE NEGATIVE (NEGATIVE); URINE LEUK ESTERASE NEGATIVE (NEGATIVE); URINE NITRITE NEGATIVE (NEGATIVE); URINE PROTEIN NEGATIVE (NEGATIVE); URINE UROBILINOGEN NEGATIVE mg/dL (0.2-1.0)
[2017-12-19 12:44] LABS: EPI CELLS RARE /HPF (FEW)
[2017-12-19] MEDS ORDERED: FOSPHENYTOIN SODIUM 1,000 MG in SODIUM CHLORIDE 100 ML IVPB ONE (13:58)
[2017-12-19] MEDS ORDERED: levETIRAcetam 500 MG/5 ML INJECTION VIAL IVPB ONE ×2 (14:20→14:39)
--- NOTE | 2017-12-19 14:52 | EKG ---
Test Reason : Blood Pressure : / mmHG Vent. Rate : 059 BPM Atrial Rate : 059 BPM P-R Int : 198 ms QRS Dur : 094 ms QT Int : 422 ms P-R-T Axes : 063 -27 093 degrees QTc Int : 417 ms POOR DATA QUALITY, INTERPRETATION MAY BE ADVERSELY AFFECTED SINUS BRADYCARDIA Lateral T wave abnormalities ABNORMAL ECG WHEN COMPARED WITH ECG OF 26-SEP-2017 11:20, NO SIGNIFICANT CHANGE WAS FOUND Confirmed by MD Josse, Ed ([id number]) on 12/19/2017 2:52:32 PM Referred By: Confirmed By:Ed Loaiza MD
[2017-12-19] MEDS ORDERED: ALPRAZolam 0.25 MG TABLET PO PRN (20:12)
[2017-12-19] MEDS: SODIUM CHLORIDE 1,000 ML IV SCH (21:03)
[2017-12-19] MEDS: levETIRAcetam 500 MG TABLET (FP) PO SCH (21:27)
[2017-12-19] MEDS: CALCIUM 500MG/VIT-D 200 UNITS COMBO TABLET (FP) PO SCH (21:27)
[2017-12-19] MEDS: GABAPENTIN 100 MG CAPSULE (FP) PO SCH (21:27)
[2017-12-19] MEDS: ATORVASTATIN CA 20 MG TABLET (FP) PO SCH (21:27)
[2017-12-19] MEDS: HEPARIN NA (PORCINE) 5,000 UNITS/ML 1ML VIAL SQ SCH (21:27)
[2017-12-19] MEDS ORDERED: QUEtiapine FUMARATE 25 MG TABLET (FP) PO SCH (22:00)
[2017-12-19] MEDS: CELECOXIB 200 MG CAPSULE PO SCH (23:15)
[2017-12-20] MEDS: LEVOTHYROXINE NA 50 MCG TABLET (FP) PO SCH (06:07)
[2017-12-20 08:19] LABS: BASO % 0.6 % (0-2.0); EOS % 0.5 % (0-4.5); HEMATOCRIT 31.8 % (32.4-45.2); HEMOGLOBIN 11.1 GM/dL (10.7-15.3); LYMPH % 21.7 % (8-40); MCH 34.6 pg (25.7-33.7); MCHC 34.9 g/dl (32.0-36.0); MEAN CELL VOLUME 99.3 fl (80-96); MEAN PLT VOLUME 7.9 fl (7.5-11.1); MONO % 9.8 % (3.8-10.2); NEUT % 67.4 % (42.8-82.8); PLATELET COUNT 232 K/MM3 (134-434); RBC 3.21 M/mm3 (3.60-5.2); RDW 12.4 % (11.6-15.6); WHITE BLOOD COUNT 5.1 K/mm3 (4.0-10.0)
[2017-12-20 08:46] LABS: ALBUMIN 3.4 g/dl (3.4-5.0); ANION GAP 8 (8-16); BILIRUBIN,TOTAL 0.5 mg/dL (0.2-1.0); BLOOD UREA NITROGEN 15 mg/dL (7-18); CALCIUM 8.2 mg/dL (8.5-10.1); CHLORIDE 103 mmol/L (98-107); CO2 24 mmol/L (21-32); GLUCOSE,RANDOM 98 mg/dL (74-106); POTASSIUM 4.1 mmol/L (3.5-5.1); SGOT/AST 23 U/L (15-37); SGPT/ALT 24 U/L (12-78); SODIUM 135 mmol/L (136-145)
[2017-12-20 08:47] LABS: ALK PHOS 99 U/L (45-117)
--- NOTE | 2017-12-20 08:47 | CON.NEURO ---
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: Dementia, Seizure, Other (depression) Cardio/Vascular: Yes: HTN, Hyperlipdemia Renal/: Yes: Renal Inusuff Psych: Yes: Other (dementia; now with further, acute change in mental status) Musculoskeletal: Yes: Other (generalized weakness) - Past Surgical History Past Surgical History: Yes: Hysterectomy - Alcohol/Substance Use Hx Alcohol Use: No - Smoking History Smoking history: Never smoked Have you smoked in the past 12 months: No Aproximately how many cigarettes per day: 0 - Social History Usual Living Arrangement: With Child ADL: Family Assistance Occupation: could not obtain social hx due to dementia Home Medications - Allergies Allergies/Adverse Reactions: Allergies Allergy/AdvReac Type Severity Reaction Status Date / Time hydromorphone HCl Allergy Mild Itching Verified 12/19/17 11:27 [From Dilaudid] - Home Medications Home Medications: Ambulatory Orders Alprazolam 0.25 mg PO DAILY PRN 12/19/17 Amlodipine Besylate/Benazepril [Lotrel 5-10 mg Capsule] 1 each PO DAILY Atorvastatin Calcium 20 mg PO HS 12/19/17 Calcium Carbonate/Vitamin D3 [Calcium 600 + Vit D Tablet] 1 each PO BID Celecoxib 200 mg PO BID 12/19/17 Donepezil HCl 10 mg PO DAILY 12/19/17 Gabapentin [Neurontin -] 100 mg PO BID 12/19/17 Levothyroxine [Synthroid -] 50 mcg PO DAILY 12/19/17 Nabumetone 500 mg PO DAILY 12/19/17 Phenytoin Oral Suspension [Dilantin Oral Suspension 100 MG/4 ML] 100 mg PO DAILY 12/19/17 Quetiapine Fumarate [Seroquel -] 25 mg PO HS 12/19/17 levETIRAcetam [Keppra -] 1,000 mg PO BID 12/19/17 Physical Exam-Neuro Vital Signs: Vital Signs Temperature 98.5 F 12/20/17 06:00 Pulse Rate 54 L 12/20/17 06:00 Respiratory Rate 18 12/20/17 06:00 Blood Pressure 138/67 12/20/17 06:00 O2 Sat by Pulse Oximetry (%) 100 12/19/17 21:00 Labs: CBC, BMP 12/20/17 07:20 INR, PTT INR 0.97 (0.82-1.09) 12/19/17 11:45 Assessment/Plan cc Breakthrough seizure HPI 77 year old female , history of HTN, HLD, Epilepsy, demnetia, anxiety . She has come to hospital for breakthrough seizure, There is no fall, fever or headache. She has improved since yesterday. Deidra has no seizure over night. She was on keppra 1 gm po bid and dilantin 100 mg once a day. She has ct head done and it was unremarkable. She remain confused. In ed , she was non verbal, now she is speaking and able to follow simple command. Allergies: Hydromorphone HCl Social history: No reported cigarette, alcohol, or drug use. SH,ROS,FH reviewed in chart Neurological Examination Alert follow command, oriented x 1 no face asymmetry, no neck stiffness, eomi, pupils reactive moving all extremity ct head unremarkable Na was 124 Assessment- Breakthrough seizure could be due to hyponatremia, her ct head is normal, no evidence of meningitis, stroke or status epilepticus. It appears to induced by hyponatremia, she was loaded with keppra. Except disorientation , dementia and post ictal, her exam is non focal. Plan- no need for mri or eeg at this time - recommend to continue same dose of keppra and dilantin for now - suggest to correct hyponatremia and supportive care Thanking you so much Benoit Strauss MD
[2017-12-20] MEDS ORDERED: PATIENT'S OWN MEDICATION (NON-FORMULARY) (Amlodipine Besylate/Benazepril [Lotrel 5-10 Mg C PO SCH (10:00)
[2017-12-20] MEDS ORDERED: PT OWN MED DRAWER 7, Y5N ONE ×2 (10:01→21:42)
[2017-12-20] MEDS: DONEPEZIL HCL 10 MG TABLET (FP) PO SCH (10:05)
[2017-12-20] MEDS: PHENYTOIN 100 MG/4 ML U-D CUP PO SCH (10:06)
[2017-12-20] MEDS: HEPARIN NA (PORCINE) 5,000 UNITS/ML 1ML VIAL SQ SCH ×2 (10:07→21:45)
[2017-12-20] MEDS: CELECOXIB 200 MG CAPSULE PO SCH ×2 (10:07→22:07)
[2017-12-20] MEDS: GABAPENTIN 100 MG CAPSULE (FP) PO SCH ×2 (10:08→21:45)
[2017-12-20] MEDS: levETIRAcetam 500 MG TABLET (FP) PO SCH ×2 (10:08→21:45)
[2017-12-20] MEDS: CALCIUM 500MG/VIT-D 200 UNITS COMBO TABLET (FP) PO SCH ×2 (10:09→21:45)
[2017-12-20] MEDS: LISINOPRIL 10 MG TABLET (FP) PO SCH (10:09)
[2017-12-20] MEDS: amLODIPine BESYLATE 5 MG TABLET (FP) PO SCH (10:09)
[2017-12-20] MEDS: NABUMETONE 500 MG TABLET PO SCH (10:10)
[2017-12-20] MEDS: SODIUM CHLORIDE 1,000 ML IV SCH ×2 (10:47→21:45)
--- NOTE | 2017-12-20 12:02 | HP ---
Admitting History and Physical - Primary Care Physician PCP: Stephen Wylie - Admission Chief Complaint: seizures History of Present Illness: ER HISTORY - History of Present Illness Initial Comments: 12/19/17 11:50 The patient is a 77 year old female brought in by EMS, accompanied with her daughter, with a significant past medical history of hypertension, hyperlipidemia, epilepsy, seizure disorder, UTIs, anemia, and anxiety, who presents to the emergency department for evaluation of altered mental status since last night. As per EMS, the patients aide was found this morning covered in urine and non verbal which prompted her visit to the ED for further evaluation. The patients daughter reports the patient called her at 7pm yesterday, but did not verbally answer back on the phone, prompting the daughter to send a family member to come check on her and give her medication prior to leaving. As per the patients daughter, the patients last known well was 5pm yesterday. The patient reports a moderate frontal headache without radiation. She also reports a few days of burning upon urination and urinary urgency. Of note, the patients daughter reports the patients PCP lowered the dose of Dilantin 2 months ago. The patients daughter states the patient usually becomes nonverbal after a seizure episode. At presentation, the patient is alert, but non verbal to questions. 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, Seizure, Other (depression) Cardiovascular: Yes: HTN, Hyperlipdemia Renal/: Yes: Renal Inusuff Heme/Onc: Yes: Anemia (megaloblastic) Psych: Yes: Other (dementia; now with further, acute change in mental status) Musculoskeletal: Yes: Other (generalized weakness) - Past Surgical History Past Surgical History: Yes: Hysterectomy - Smoking History Smoking history: Never smoked Have you smoked in the past 12 months: No Aproximately how many cigarettes per day: 0 - Alcohol/Substance Use Hx Alcohol Use: No - Social History ADL: Family Assistance Occupation: could not obtain social hx due to dementia Home Medications - Allergies Allergies/Adverse Reactions: Allergies Allergy/AdvReac Type Severity Reaction Status Date / Time hydromorphone HCl Allergy Mild Itching Verified 12/19/17 11:27 [From Dilaudid] - Home Medications Home Medications: Ambulatory Orders Alprazolam 0.25 mg PO DAILY PRN 12/19/17 Amlodipine Besylate/Benazepril [Lotrel 5-10 mg Capsule] 1 each PO DAILY Atorvastatin Calcium 20 mg PO HS 12/19/17 Calcium Carbonate/Vitamin D3 [Calcium 600 + Vit D Tablet] 1 each PO BID Celecoxib 200 mg PO BID 12/19/17 Donepezil HCl 10 mg PO DAILY 12/19/17 Gabapentin [Neurontin -] 100 mg PO BID 12/19/17 Levothyroxine [Synthroid -] 50 mcg PO DAILY 12/19/17 Nabumetone 500 mg PO DAILY 12/19/17 Phenytoin Oral Suspension [Dilantin Oral Suspension 100 MG/4 ML] 100 mg PO DAILY 12/19/17 Quetiapine Fumarate [Seroquel -] 25 mg PO HS 12/19/17 levETIRAcetam [Keppra -] 1,000 mg PO BID 12/19/17 Review of Systems - Review of Systems Constitutional: reports: Loss of Appetite Physical Examination Vital Signs: Vital Signs Temperature 97 F L 12/20/17 10:00 Pulse Rate 57 L 12/20/17 10:00 Respiratory Rate 18 12/20/17 10:00 Blood Pressure 141/68 12/20/17 10:00 O2 Sat by Pulse Oximetry (%) 100 12/19/17 21:00 Constitutional: Yes: No Distress, Calm Cardiovascular: Yes: Regular Rate and Rhythm Respiratory: Yes: CTA Bilaterally Gastrointestinal: Yes: Normal Bowel Sounds, Soft. No: Tenderness Edema: No Labs: CBC, BMP 12/20/17 07:20 12/20/17 07:20 Imaging - Results Chest X-ray: Image Reviewed (clear) Cat Scan: Report Reviewed (head CT - negative) EKG: Image Reviewed (sinus) Problem List - Problems (1) Altered mental status Code(s): R41.82 - ALTERED MENTAL STATUS, UNSPECIFIED Qualifiers: Altered mental status type: transient alteration of awareness Qualified Code(s): R40.4 - Transient alteration of awareness (2) Dementia Code(s): F03.90 - UNSPECIFIED DEMENTIA WITHOUT BEHAVIORAL DISTURBANCE Qualifiers: Dementia type: Alzheimer's disease Alzheimer's disease onset: unspecified onset (3) Hx of seizure disorder Code(s): Z86.69 - PERSONAL HISTORY OF DIS OF THE NERVOUS SYS AND SENSE ORGANS (4) Hyponatremia Code(s): E87.1 - HYPO-OSMOLALITY AND HYPONATREMIA (5) Seizure Code(s): R56.9 - UNSPECIFIED CONVULSIONS Assessment/Plan PLAN Breakthrough seizures Hyponatremia -- sodium improving -- continue with same meds for seizures -- no infectious etiology-- urine cultures negative -- iv fluids -- pt has decreased appetite and depressed-- add remeron -- seizure precautions -- PT eval
[2017-12-20] MEDS: PANTOPRAZOLE 40 MG TABLET (FP) PO SCH (17:47)
[2017-12-20] MEDS: MIRTAZAPINE 15 MG TABLET (FP) PO SCH (21:44)
[2017-12-20] MEDS: ATORVASTATIN CA 20 MG TABLET (FP) PO SCH (21:45)
[2017-12-21] MEDS: LEVOTHYROXINE NA 50 MCG TABLET (FP) PO SCH (06:15)
[2017-12-21 07:59] LABS: ANION GAP 9 (8-16); BLOOD UREA NITROGEN 17 mg/dL (7-18); CALCIUM 7.9 mg/dL (8.5-10.1); CHLORIDE 106 mmol/L (98-107); CO2 25 mmol/L (21-32); GLUCOSE,RANDOM 94 mg/dL (74-106); POTASSIUM 3.7 mmol/L (3.5-5.1); SODIUM 140 mmol/L (136-145)
[2017-12-21 08:01] LABS: CREATININE 1.1 mg/dL (0.55-1.02)
[2017-12-21] MEDS ORDERED: PT OWN MED DRAWER 7, Y5N ONE (09:07)
[2017-12-21] MEDS: PHENYTOIN 100 MG/4 ML U-D CUP PO SCH (09:08)
[2017-12-21] MEDS: PANTOPRAZOLE 40 MG TABLET (FP) PO SCH (09:08)
[2017-12-21] MEDS: DONEPEZIL HCL 10 MG TABLET (FP) PO SCH (09:08)
[2017-12-21] MEDS: LISINOPRIL 10 MG TABLET (FP) PO SCH (09:08)
[2017-12-21] MEDS: GABAPENTIN 100 MG CAPSULE (FP) PO SCH ×2 (09:08→21:15)
[2017-12-21] MEDS: CALCIUM 500MG/VIT-D 200 UNITS COMBO TABLET (FP) PO SCH ×2 (09:08→21:14)
[2017-12-21] MEDS: levETIRAcetam 500 MG TABLET (FP) PO SCH ×2 (09:08→21:15)
[2017-12-21] MEDS: amLODIPine BESYLATE 5 MG TABLET (FP) PO SCH (09:08)
[2017-12-21] MEDS: NABUMETONE 500 MG TABLET PO SCH (09:09)
[2017-12-21] MEDS: CELECOXIB 200 MG CAPSULE PO SCH ×2 (09:10→21:15)
[2017-12-21] MEDS: HEPARIN NA (PORCINE) 5,000 UNITS/ML 1ML VIAL SQ SCH ×2 (09:10→21:15)
--- NOTE | 2017-12-21 10:41 | PN ---
Progress Note, Physician Chief Complaint: decreased appetite told her daughter yesterday that her abd was hurting No nausea BM+ no seizures denies any pain currently - Current Medication List Current Medications: Active Medications Alprazolam (Xanax -) 0.25 mg PO DAILY PRN PRN Reason: ANXIETY Last Admin: 12/19/17 21:27 Dose: 0.25 mg Amlodipine Besylate (Norvasc -) 5 mg PO DAILY [facility] Last Admin: 12/21/17 09:08 Dose: 5 mg Atorvastatin Calcium (Lipitor -) 20 mg PO HS [facility] Last Admin: 12/20/17 21:45 Dose: 20 mg Calcium Carbonate/Cholecalciferol ([place] 500+D -) 1 tab PO BID [facility] Last Admin: 12/21/17 09:08 Dose: 1 tab Celecoxib (Celebrex -) 200 mg PO BID [facility] Last Admin: 12/21/17 09:10 Dose: 200 mg Donepezil HCl (Aricept -) 10 mg PO DAILY [facility] Last Admin: 12/21/17 09:08 Dose: 10 mg Gabapentin (Neurontin -) 100 mg PO BID [facility] Last Admin: 12/21/17 09:08 Dose: 100 mg Heparin Sodium (Porcine) (Heparin -) 5,000 unit SQ BID [facility] Last Admin: 12/21/17 09:10 Dose: 5,000 unit Sodium Chloride (Normal Saline -) 1,000 mls @ 75 mls/hr IV ASDIR [facility] Last Admin: 12/20/17 21:45 Dose: 75 mls/hr Levetiracetam (Keppra -) 1,000 mg PO BID [facility] Last Admin: 12/21/17 09:08 Dose: 1,000 mg Levothyroxine Sodium (Synthroid -) 50 mcg PO DAILY@0700 [facility] Last Admin: 12/21/17 06:15 Dose: 50 mcg Lisinopril (Prinivil) 10 mg PO DAILY [facility] Last Admin: 12/21/17 09:08 Dose: 10 mg Mirtazapine (Remeron -) 7.5 mg PO HS [facility] Last Admin: 12/20/17 21:44 Dose: 7.5 mg Nabumetone (Relafen -) 500 mg PO DAILY [facility] Last Admin: 12/21/17 09:09 Dose: 500 mg Pantoprazole Sodium (Protonix -) 40 mg PO DAILY [facility] Last Admin: 12/21/17 09:08 Dose: 40 mg Phenytoin Sodium (Dilantin Oral Suspension -) 100 mg PO DAILY [facility] Last Admin: 12/21/17 09:08 Dose: 100 mg - Objective Vital Signs: Vital Signs Temperature 97.2 F L 12/21/17 05:55 Pulse Rate 50 L 12/21/17 05:55 Respiratory Rate 18 12/21/17 05:55 Blood Pressure 118/48 12/21/17 05:55 O2 Sat by Pulse Oximetry (%) 98 12/20/17 21:00 Constitutional: Yes: No Distress Cardiovascular: Yes: Regular Rate and Rhythm Respiratory: Yes: CTA Bilaterally Gastrointestinal: Yes: Normal Bowel Sounds, Soft. No: Distention, Tenderness Edema: No Labs: CBC, BMP 12/20/17 07:20 12/21/17 06:30 INR, PTT INR 0.97 (0.82-1.09) 12/19/17 11:45 Problem List - Problems (1) Altered mental status Code(s): R41.82 - ALTERED MENTAL STATUS, UNSPECIFIED Qualifiers: Altered mental status type: transient alteration of awareness Qualified Code(s): R40.4 - Transient alteration of awareness (2) Dementia Code(s): F03.90 - UNSPECIFIED DEMENTIA WITHOUT BEHAVIORAL DISTURBANCE Qualifiers: Dementia type: Alzheimer's disease Alzheimer's disease onset: unspecified onset (3) Hx of seizure disorder Code(s): Z86.69 - PERSONAL HISTORY OF DIS OF THE NERVOUS SYS AND SENSE ORGANS (4) Hyponatremia Code(s): E87.1 - HYPO-OSMOLALITY AND HYPONATREMIA (5) Seizure Code(s): R56.9 - UNSPECIFIED CONVULSIONS Assessment/Plan PLAN Breakthrough seizures Hyponatremia -- sodium normal -- dc fluids -- continue with same meds for seizures -- no infectious etiology-- urine cultures negative -- pt has decreased appetite and depressed-- increase remeron -- seizure precautions -- PT eval -- feed with assistance -- she ate ice cream and magic cup yesterday -- abd sono - done - pending - if negative -- dc planning
[2017-12-21] MEDS: MIRTAZAPINE 15 MG TABLET (FP) PO SCH (21:14)
[2017-12-21] MEDS: ATORVASTATIN CA 20 MG TABLET (FP) PO SCH (21:15)
[2017-12-22] MEDS: LEVOTHYROXINE NA 50 MCG TABLET (FP) PO SCH (06:07)
[2017-12-22] MEDS ORDERED: PT OWN MED DRAWER 7, Y5N ONE (09:17)
[2017-12-22] MEDS: GABAPENTIN 100 MG CAPSULE (FP) PO SCH (09:21)
[2017-12-22] MEDS: LISINOPRIL 10 MG TABLET (FP) PO SCH (09:21)
[2017-12-22] MEDS: CELECOXIB 200 MG CAPSULE PO SCH (09:21)
[2017-12-22] MEDS: levETIRAcetam 500 MG TABLET (FP) PO SCH (09:21)
[2017-12-22] MEDS: amLODIPine BESYLATE 5 MG TABLET (FP) PO SCH (09:21)
[2017-12-22] MEDS: HEPARIN NA (PORCINE) 5,000 UNITS/ML 1ML VIAL SQ SCH (09:22)
[2017-12-22] MEDS: PANTOPRAZOLE 40 MG TABLET (FP) PO SCH (09:22)
[2017-12-22] MEDS: DONEPEZIL HCL 10 MG TABLET (FP) PO SCH (09:22)
[2017-12-22] MEDS: CALCIUM 500MG/VIT-D 200 UNITS COMBO TABLET (FP) PO SCH (09:22)
[2017-12-22] MEDS: NABUMETONE 500 MG TABLET PO SCH (09:23)
[2017-12-22 11:23] VITALS: BP 141/62; PULSE 60; TEMP 98.6
--- NOTE | 2017-12-22 11:24 | DS ---
Physical Examination Vital Signs: Vital Signs Temperature 98.6 F 12/22/17 09:00 Pulse Rate 60 12/22/17 09:00 Respiratory Rate 18 12/22/17 09:00 Blood Pressure 141/62 12/22/17 09:00 O2 Sat by Pulse Oximetry (%) 98 12/21/17 21:00 Findings/Remarks: patient seen and examined chart reviewed Sitting in chair Walking with walker Comfortable and afebrile Denies pain Constitutional: Yes: No Distress, Calm Neck: Yes: Supple Cardiovascular: Yes: Regular Rate and Rhythm Respiratory: Yes: CTA Bilaterally Gastrointestinal: Yes: Soft Edema: No Labs: CBC, BMP 12/20/17 07:20 12/21/17 06:30 Discharge Summary Reason For Visit: ALTERED MENTAL STATUS; HX OF SEIZURE DISORDER Current Active Problems Altered mental status (Acute) Hospital Course: patient is a 77 year old female , with a significant past medical history of hypertension, hyperlipidemia, epilepsy, seizure disorder, UTIs, anemia, and anxiety, --admitted for breakthrough seizure workup also showed she was hyponatremic Responded well to treatment and neurology followed Sodium improved Now comfortable Stable for discharge home--to family Medications reconciled Will increase Dilantin level--- 2 twice a day patient to follow with her PMD next week Continue Keppra Discussed with nursing staff also Present medications to pharmacy as needed Discharge time--- Approximately 30 minutes in examining documenting as well as coordinating care Condition: Fair - Instructions Referrals: Stephen Wylie MD [Primary Care Provider] - Disposition: HOME - Home Medications Comprehensive Discharge Medication List: Ambulatory Orders Alprazolam 0.25 mg PO DAILY PRN 12/19/17 Amlodipine Besylate/Benazepril [Lotrel 5-10 mg Capsule] 1 each PO DAILY Atorvastatin Calcium 20 mg PO HS 12/19/17 Calcium Carbonate/Vitamin D3 [Calcium 600 + Vit D Tablet] 1 each PO BID Donepezil HCl 10 mg PO DAILY 12/19/17 Gabapentin [Neurontin -] 100 mg PO BID 12/19/17 Levothyroxine [Synthroid -] 50 mcg PO DAILY 12/19/17 Nabumetone 500 mg PO DAILY 12/19/17 Quetiapine Fumarate [Seroquel -] 25 mg PO HS 12/19/17 levETIRAcetam [Keppra -] 1,000 mg PO BID 12/19/17 Mirtazapine [Remeron -] 7.5 mg PO HS tablet 12/22/17 Phenytoin Oral Suspension [Dilantin Oral Suspension 100 MG/4 ML] 100 mg PO BID # 0 bottle 12/22/17
[2017-12-22] MEDS: PHENYTOIN 100 MG/4 ML U-D CUP PO SCH (13:57)
== END 2017-12-22 14:23 | disposition home or self-care (01) | DRG 101 ==
LOC: JER 11:07 → JERBED 14:48 → J6S 16:30
PROVIDERS: ADMIT Internal Medicine; ATTEND Internal Medicine
DX: R56.9 Unspecified convulsions (principal); E87.1 Hypo-osmolality and hyponatremia; I10 Essential (primary) hypertension; E78.5 Hyperlipidemia, unspecified; D64.9 Anemia, unspecified; F41.9 Anxiety disorder, unspecified; F03.90 Unspecified dementia, unspecified severity, without behavioral disturbance, psychotic disturbance, mood disturbance, and anxiety; E03.9 Hypothyroidism, unspecified; F32.9 Major depressive disorder, single episode, unspecified; R40.4 Transient alteration of awareness; D53.1 Other megaloblastic anemias, not elsewhere classified
CPT/HCPCS: 36415; 70450-TC; 71045-TC-FY; 76700-TC; 80048; 80053; 80185; 81003; 81015; 82550; 82553; 83735; 84484; 85025; 85610; 87086; 93005; 93010; 97116-GP; 97161-GP; 99284-25; J1644; J7030

== ENCOUNTER 2018-03-15 15:38 | Emergency (ER) | payer OTHER ==
[2018-03-15 15:53] VITALS: BP 108/40; PULSE 60; TEMP 98.1; BMI 23.0
--- NOTE | 2018-03-15 15:54 | PDOC ---
Rapid Medical Evaluation Chief Complaint: Urinary Problem Time Seen by Provider: 03/15/18 15:50 Medical Evaluation: Allergies Allergy/AdvReac Type Severity Reaction Status Date / Time hydromorphone HCl Allergy Mild Itching Verified 03/15/18 15:50 [From Dilaudid] 03/15/18 15:50 Pt presents to the ED for burning when she pees. Started one week ago. Admits to urgency, and dysuria. Denies fevers, n/v/d, back pain, abdominal pain. Exam: NAD, abdomen soft, non-tender, without rebound or guarding Orders: Urine Pt to proceed to the ED for further evaluation Discharge Disposition - Diagnosis Dysuria - Referrals - Patient Instructions - Post Discharge Activity
--- NOTE | 2018-03-15 16:03 | PDOC ---
History of Present Illness - General Chief Complaint: Urinary Problem Stated Complaint: URINE INFECTION Time Seen by Provider: 03/15/18 15:50 History Source: Patient Exam Limitations: No Limitations - History of Present Illness Initial Comments: CHIEF COMPLAINT: 77 y/o afebrile female c/o burning with urination x 1 week. HISTORY OF PRESENT ILLNESS: The patient denies f/c, n/v/d, back pain, abd pain , hematuria. Past History - Past Medical History Allergies/Adverse Reactions: Allergies Allergy/AdvReac Type Severity Reaction Status Date / Time hydromorphone HCl Allergy Mild Itching Verified 03/15/18 15:50 [From Poonam] Home Medications: Ambulatory Orders Alprazolam 0.25 mg PO DAILY PRN 12/19/17 Amlodipine Besylate/Benazepril [Lotrel 5-10 mg Capsule] 1 each PO DAILY Atorvastatin Calcium 20 mg PO HS 12/19/17 Calcium Carbonate/Vitamin D3 [Calcium 600 + Vit D Tablet] 1 each PO BID Donepezil HCl 10 mg PO DAILY 12/19/17 Gabapentin [Neurontin -] 100 mg PO BID 12/19/17 Levothyroxine [Synthroid -] 50 mcg PO DAILY 12/19/17 Nabumetone 500 mg PO DAILY 12/19/17 Quetiapine Fumarate [Seroquel -] 25 mg PO HS 12/19/17 levETIRAcetam [Keppra -] 1,000 mg PO BID 12/19/17 Mirtazapine [Remeron -] 7.5 mg PO HS tablet 12/22/17 Mirtazapine [Remeron -] 15 mg PO DAILY #30 tablet 12/22/17 Phenytoin Oral Suspension [Dilantin Oral Suspension 100 MG/4 ML] 100 mg PO BID # 0 bottle 12/22/17 Phenytoin Oral Suspension [Dilantin Oral Suspension 100 MG/4 ML] 100 mg PO BID # 1 bot 12/22/17 Cephalexin Monohydrate [Keflex -] 500 mg PO BID #14 capsule 03/15/18 Anemia: Yes Asthma: No Cancer: No Cardiac Disorders: No CVA: No COPD: No CHF: No DVT: No Dementia: Yes Diabetes: No GI Disorders: Yes (reflux) Disorders: No HTN: Yes Hypercholesterolemia: Yes Liver Disease: No Psychiatric Problems: Yes (depression, ANXIETY.) Seizures: Yes (epilepsy) Thyroid Disease: Yes (HYPOTHYROID) - Surgical History Abdominal Surgery: No Appendectomy: No Cardiac Surgery: No Cholecystectomy: No Lung Surgery: No Neurologic Surgery: No Orthopedic Surgery: No - Reproductive History Cervical CA: No Dysfunctional Uterine Bleeding: No Ectopic : No Endometrial CA: No Polycystic Ovaries: No Tubal Ligation: No - Immunization History Immunization Up to Date: Yes - Suicide/Smoking/Psychosocial Hx Smoking Status: No Smoking History: Never smoked Have you smoked in the past 12 months: No Number of Cigarettes Smoked Daily: 0 Hx Alcohol Use: No Drug/Substance Use Hx: No Substance Use Type: None Hx Substance Use Treatment: No Review of Systems - Review of Systems Able to Perform ROS?: Yes Constitutional: No: Symptoms Reported Cardiac (ROS): No: Symptoms Reported ABD/GI: No: Symptoms Reported : Yes: Burning, Dysuria, Frequency, Urgency. No: Flank Pain, Hematuria Musculoskeletal: No: Back Pain *Physical Exam - Vital Signs Last Vital Signs Temp Pulse Resp BP Pulse Ox 98.1 F 60 18 108/40 98 03/15/18 15:50 03/15/18 15:50 03/15/18 15:50 03/15/18 15:50 03/15/18 15:50 - Physical Exam General Appearance: Yes: Nourished, Appropriately Dressed. No: Apparent Distress HEENT: positive: EOMI, BRIE Gastrointestinal/Abdominal: positive: Soft. negative: Tender Musculoskeletal: negative: CVA Tenderness, CVA Tenderness (R), CVA Tenderness (L ) Medical Decision Making - Medical Decision Making A/P: 77 y/o afebrile female with signs and symptoms of a UTI. Plan is as follows: 1. UA/culture UA with 2+ leuks. Will d/c with rx for keflex. Pending culture. Patient instructed to drink plenty of fluids, follow up with her PCP and return to the ER with any worsening or concerning symptoms. The patient verbalizes understanding of all instructions, has no further questions and is awaiting discharge. *DC/Admit/Observation/Transfer Diagnosis at time of Disposition: Dysuria UTI (urinary tract infection) Qualifiers: Urinary tract infection type: acute cystitis Hematuria presence: without hematuria Qualified Code(s): N30.00 - Acute cystitis without hematuria - Discharge Dispostion Disposition: HOME Condition at time of disposition: Good - Prescriptions Prescriptions: Cephalexin Monohydrate [Keflex -] 500 mg PO BID #14 capsule - Referrals Referrals: Stephen Wylie MD [Primary Care Provider] - - Patient Instructions Printed Discharge Instructions: DI for Urinary Tract Infection (UTI) Additional Instructions: Discharge Instructions: -You have a urinary tract infection -A prescription for antibiotics has been sent to your pharmacy -Please drink at least 64oz of water daily -Follow up with Dr. Wylie within 1 week -Return to the ER with any worsening or concerning symptoms Instrucciones de descarga: -Tiene christal infeccin del tracto urinario -Christal receta de antibiticos keller sido enviada a deal farmacia -Por favor jillian al menos 64 onzas de agua al da -Siga con Dr. Wylie dentro de 1 semana -Volver a la rosi de urgencias con cualquier empeoramiento o sntomas - Post Discharge Activity
[2018-03-15 16:38] LABS: URINE APPEARANCE CLOUDY; URINE BILIRUBIN NEGATIVE (<2.0 mg/dL); URINE COLOR AMBER; URINE GLUCOSE (UA) NEGATIVE (NEGATIVE); URINE KETONE NEGATIVE (NEGATIVE); URINE NITRITE NEGATIVE (NEGATIVE); URINE PROTEIN NEGATIVE (NEGATIVE); URINE UROBILINOGEN NEGATIVE mg/dL (0.2-1.0)
[2018-03-15 16:40] LABS: URINE LEUK ESTERASE 2+ (NEGATIVE)
[2018-03-15 16:46] LABS: EPI CELLS MODERATE /HPF (FEW); URINE HYALINE CAST 9 /lpf; URINE MUCUS RARE
== END 2018-03-15 16:49 | disposition home or self-care (01) ==
LOC: JERFT 15:38
DX: N30.00 Acute cystitis without hematuria (principal); I10 Essential (primary) hypertension; D64.9 Anemia, unspecified; E78.00 Pure hypercholesterolemia, unspecified; K21.9 Gastro-esophageal reflux disease without esophagitis; F03.90 Unspecified dementia, unspecified severity, without behavioral disturbance, psychotic disturbance, mood disturbance, and anxiety; E03.9 Hypothyroidism, unspecified
CPT/HCPCS: 81003; 81015; 87086; 99281-25

== ENCOUNTER 2020-03-29 12:22 | Emergency (ER) | payer OTHER ==
[2020-03-29 12:25] VITALS: TEMP 98.2; BMI 24.7
--- OUTSIDE RECORDS SUMMARY | 2020-03-29 12:32 | XMS ---
:1940 Author Organization [facility] Care Team Providers Name Role Phone Carlos A, Benoit Unavailable Unavailable Carlos A, Benoit Unavailable Unavailable Carlos A, Benoit Unavailable Unavailable Carlos A, Benoit Unavailable Unavailable Carlos A, Benoit Unavailable Unavailable Carlos A, Benoit Unavailable Unavailable Carlos A, Benoit Unavailable Unavailable TIMMY PRINCE, PRINCE Unavailable Unavailable Re-disclosure Warning The records that you are about to access may contain information from federally- assisted alcohol or drug abuse programs. If such information is present, then the following federally mandated warning applies: This information has been disclosed to you from records protected by federal confidentiality rules (42 CFR part 2). The federal rules prohibit you from making any further disclosure of this information unless further disclosure is expressly permitted by the written consent of the person to whom it pertains or as otherwise permitted by 42 CFR part 2. A general authorization for the release of medical or other information is NOT sufficient for this purpose. The Federal rules restrict any use of the information to criminally investigate or prosecute any alcohol or drug abuse patient.The records that you are about to access may contain highly sensitive health information, the redisclosure of which is protected by Article 27-F of the [facility] Public Health law. If you continue you may haveaccess to information: Regarding HIV / AIDS; Provided by facilities licensed or operated by the [facility] Office of Mental Health; or Provided by the [facility] Office for People With Developmental Disabilities. If such information is present, then the following [facility] mandated warning applies: This information has been disclosed to you from confidential records which are protected by state law. State law prohibits you from making any further disclosure of this information without the specific written consent of the person to whom it pertains, or as otherwise permitted by law. Any unauthorized further disclosure in violation of state law may result in a fine or senior care sentence or both. A general authorization for the release of medical or other information is NOT sufficient authorization for further disclosure. Allergies and Adverse Reactions Type Description Substance Reaction Status Data Source(s ) Food allergy No Known Food No Known Food [facility] Allergies [facility] Drug allergy No Known Drug No Known Drug [facility] Allergies [facility] Encounters Encounter Providers Location Date Indications Data Source(s ) Outpatient Attender: PRINCE Rivera 07/25/2019 [facility] 11:13:00 [facility] DANUTAAdmitter: EST PRINCE SAUCEDOUTAReferrer: Benoit Strauss Outpatient 09/20/2018 [facility] 11:12:[facility] AM [facility] Outpatient Admitter: PRINCE 07/11/2018 [facility] TIMMY MORRISON 09:23:00 AM [facility] EST Insurance Providers Payer name Policy type Policy ID Covered Covered constitution party's Policy P silvio / Coverage constitution party ID relationship to [place] [employer] type [employer] [id number] SP [id number] MEDICARE W [id number] [employer] O [id number] MEDICARE PT B [id number] O/P HEALTH [id number] SP [id number] SOLUTIONS Problems, Conditions, and Diagnoses Code Display Name Description Problem Type Effective Data Sour ce(s) Dates M54.2 Cervicalgia CERVICALGIA Diagnosis 07/25/2019 [place] [facility] EST M54.5 Low back pain LOW BACK PAIN Diagnosis 07/25/2019 [place] [facility] 11:[facility] EST M54.16 Radiculopathy, RADICULOPATHY, Diagnosis 07/25/2019 [facility] lumbar region LUMBAR REGION 11:13:00 AM Medical Center EST R26.89 Other abnormalities OTHER Diagnosis 07/11/2018 [facility] of gait and ABNORMALITIES OF 09:23:00 AM Medica l Center mobility GAIT AND MOBILITY EST Social History Code Duration Value Status Description Data Source(s ) Smoking Unknown if ever completed Unknown if ever Melvina Meléndez smoked [facility]
[2020-03-29] MEDS ORDERED: ACETAMINOPHEN 1000 MG/100 ML VIAL (NON FORMULARY) IVPB ONE (13:05)
[2020-03-29] MEDS ORDERED: SODIUM CHLORIDE 0.9% 500 ML INFUS.BAG IV ONE (13:05)
--- NOTE | 2020-03-29 13:24 | PDOC ---
History of Present Illness - General Chief Complaint: Pain Stated Complaint: BACK PAIN Time Seen by Provider: 03/29/20 13:12 History Source: Patient Exam Limitations: No Limitations - History of Present Illness Initial Comments: 03/29/20 13:19 Patient is a 79 year old female with h/o HTN, HLD, hypothyroid, anemia, dementia, depression, anxiety, seizures, UTIs, hysterectomy c/o left flank pain 7 days. States the pain started 7 days ago has progressively worsened now pain is 8/10 and associated suprapubic pain and dysuria. Patient states she has been taking some Tylenol for her symptoms however last dose was yesterday morning. Denies any fever, chills, nausea, vomiting. PMD: Dr. Melinda Lang PMHX: As above PSOCHX: Neg cig, durg, etoh ALL: Hydromorphone GENERAL/CONSTITUTIONAL: [No fever or chills. No weakness. No weight change.] HEAD, EYES, EARS, NOSE AND THROAT: [No change in vision. No ear pain or discharge. No sore throat.] CARDIOVASCULAR: [No chest pain or shortness of breath.] RESPIRATORY: [No cough, wheezing, or hemoptysis.] GASTROINTESTINAL: [No nausea, vomiting, diarrhea or constipation. No rectal bleeding.] GENITOURINARY: [(+)dysuria, (-) frequency, or change in urination.] MUSCULOSKELETAL: [(+) joint or muscle swelling or pain. No neck or back pain.] SKIN AND BREASTS: [No rash or easy bruising.] NEUROLOGIC: [No headache, vertigo, loss of consciousness, or loss of sensation.] PSYCHIATRIC: [(+)depression or anxiety.] ENDOCRINE: [No increased thirst. No abnormal weight change.] HEMATOLOGIC/LYMPHATIC: [No anemia, easy bleeding, or history of blood clots.] ALLERGIC/IMMUNOLOGIC: [No hives or skin allergy. No latex allergy.] GENERAL: [The patient is awake, alert, and fully oriented, in no acute distress.] HEAD: [Normal with no signs of trauma.] EYES: [Pupils equal, round and reactive to light, extraocular movements intact, sclera anicteric, conjunctiva clear.] ENT: [Ears normal, nares patent, oropharynx clear without exudates. Moist mucou s membranes.] NECK: [Normal range of motion, supple without lymphadenopathy, JVD, or masses.] LUNGS: [Breath sounds equal, clear to auscultation bilaterally. No wheezes, and no crackles.] HEART: [Regular rate and rhythm, normal S1 and S2 without murmur, rub.] ABDOMEN: [Soft, (+) tenderness lower abd , normoactive bowel sounds. No guarding, no rebound. No masses, (+) b/l CVAT] EXTREMITIES: [Normal range of motion, no edema. No clubbing or cyanosis. No cords, erythema, or tenderness.] NEUROLOGICAL: [Cranial nerves II through XII grossly intact. Normal speech, normal gait, (+) tremors] PSYCH: [Normal mood, normal affect.] SKIN: [Warm, Dry, normal turgor, no rashes or lesions noted.] Past History - Medical History Allergies/Adverse Reactions: Allergies Allergy/AdvReac Type Severity Reaction Status Date / Time hydromorphone HCl Allergy Mild Itching Verified 03/29/20 12:25 [From Dilaudid] Home Medications: Ambulatory Orders Alprazolam 0.25 mg PO DAILY PRN 12/19/17 Amlodipine Besylate/Benazepril [Lotrel 5-10 mg Capsule] 1 each PO DAILY 12/19/17 Atorvastatin Calcium 20 mg PO HS 12/19/17 Calcium Carbonate/Vitamin D3 [Calcium 600 + Vit D Tablet] 1 each PO BID 12/19/17 Donepezil HCl 10 mg PO DAILY 12/19/17 Gabapentin [Neurontin -] 100 mg PO BID 12/19/17 Levothyroxine [Synthroid -] 50 mcg PO DAILY 12/19/17 Nabumetone 500 mg PO DAILY 12/19/17 Quetiapine Fumarate [Seroquel -] 25 mg PO HS 12/19/17 levETIRAcetam [Keppra -] 1,000 mg PO BID 12/19/17 Mirtazapine [Remeron -] 7.5 mg PO HS tablet 12/22/17 Mirtazapine [Remeron -] 15 mg PO DAILY #30 tablet 12/22/17 Phenytoin Oral Suspension [Dilantin Oral Suspension 100 MG/4 ML] 100 mg PO BID #0 bottle 12/22/17 Phenytoin Oral Suspension [Dilantin Oral Suspension 100 MG/4 ML] 100 mg PO BID #1 bot 12/22/17 Cephalexin Monohydrate [Keflex -] 500 mg PO BID #14 capsule 03/15/18 Anemia: Yes Asthma: No Cancer: No Cardiac Disorders: No CVA: No COPD: No CHF: No DVT: No Dementia: Yes Diabetes: No GI Disorders: Yes (reflux) Disorders: No HTN: Yes Hypercholesterolemia: Yes Liver Disease: No Psychiatric Problems: Yes (depression, ANXIETY.) Seizures: Yes (epilepsy) Thyroid Disease: Yes (HYPOTHYROID) - Surgical History Abdominal Surgery: No Appendectomy: No Cardiac Surgery: No Cholecystectomy: No Lung Surgery: No Neurologic Surgery: No Orthopedic Surgery: No - Reproductive History Cervical CA: No Dysfunctional Uterine Bleeding: No Ectopic : No Endometrial CA: No Polycystic Ovaries: No Tubal Ligation: No - Immunization History Immunization Up to Date: Yes - Psycho-Social/Smoking History Smoking Status: No Smoking History: Never smoked Have you smoked in the past 12 months: No Number of Cigarettes Smoked Daily: 0 *Physical Exam - Vital Signs Last Vital Signs Temp Pulse Resp BP Pulse Ox 98.2 F 88 18 156/89 97 03/29/20 12:23 03/29/20 12:23 03/29/20 12:23 03/29/20 12:23 03/29/20 12:23 ED Treatment Course - LABORATORY CBC & Chemistry Diagram: 03/29/20 14:28 03/29/20 14:28 Medical Decision Making - Medical Decision Making 03/29/20 13:19 Patient is a 79 year old female with h/o HTN, HLD, hypothyroid, anemia, dementia, depression, anxiety, seizures, UTIs, hysterectomy c/o left flank pain 7 days. States the pain started 7 days ago has progressively worsened now pain is 8/10 and associated suprapubic pain and dysuria. Patient states she has been taking some Tylenol for her symptoms however last dose was yesterday morning. Denies any fever, chills, nausea, vomiting. DDX: diverticulitis, UTI, appendicitis, Labs Pain meds CT abdomen pelvis Reassess 03/29/20 17:57 Patient Full Name: KATIE OCAMPO Patient Accession No: [id number] Patient : 1940 Reason for Exam: LLQ PAIN Referring Physician: Patient Name: DAMARIS WILSON THIS IS A PRELIMINARY REPORT FROM [facility] DATE OF SERVICE: 2020-03-29 16:54:37 IMAGES: 436 EXAM: CT ABDOMEN \T\ CT PELVIS CT W/O CONTR HISTORY:Left lower quadrant pain COMPARISON: None. TECHNIQUE: Unenhanced axial images from the lung bases through the symphysis pubis with multi-planar reconstructions from the axial data set. Oral contrast: No One or more of the following dose reduction techniques were used: Automated exposure control adjustment of the mA and/or kV according to the patient size, use of iterative reconstructive technique. FINDINGS: ABDOMEN: LUNGS: The lung bases are:There is a granuloma in lingula. LIVER:Unremarkable GALLBLADDER AND BILIARY SYSTEM: There are no calcified gallstones. There is no biliary tract dilatation. PANCREAS:Unremarkable SPLEEN:Unremarkable ADRENAL GLANDS ARE: Unremarkable KIDNEYS: There is no hydronephrosis, perinephric inflammation or urinary tract calculi. STOMACH AND BOWEL: There is no bowel dilatation, or evidence of obstruction. The appendix is visualized and appears normal. PERITONEUM/RETROPERITONEUM: There is no free intraperitoneal air. No free or focal fluid collection. No pathologically enlarged adenopathy. VESSELS: No aortic aneurysm. There is moderate arthrosclerotic change. PELVIS: No free or focal fluid collection. There is a 1.7 x 2 sonometer right ovarian cyst. No pathologically enlarged pelvic or inguinal adenopathy. The bladder is unremarkable MUSCULOSKELETAL: No aggressive bone lesion. There is curvature of the spine convex to the right. There is 9 mm anterolisthesis of L5 on S1 and bilateral pars defects. IMPRESSION: 1. No evidence for colitis or diverticulitis. No free fluid, free air. 2. 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 One or more of the following dose reduction techniques were used: automated exposure control, adjustment of the mA and/or kV according to patient size, use of iterative reconstructive technique. THIS DOCUMENT HAS BEEN ELECTRONICALLY SIGNED Alejandra Correa MD 03/29/2020 17:25 EST [facility]. Please call [facility] [phone] ([phone]) with questions. INTERPRETING RADIOLOGIST: Alejandra Correa MD Electronically Signed: Mar 29, 2020 05:26PM EDT Patient feels improved abdominal pain resolved. Abdomen soft nontender. I discussed the physical exam findings, ancillary test results and final diagnoses with the patient. I answered all of the patient's questions. The patient was satisfied with the care received and felt comfortable with the discharge plan and treatment plan. The Patient agrees to follow up with the primary care physician within 24-72 hours. Discharge - Discharge Information Problems reviewed: Yes Clinical Impression/Diagnosis: Abdominal pain Qualifiers: Abdominal location: left lower quadrant Qualified Code(s): R10.32 - Left lower quadrant pain Back pain Qualifiers: Back pain location: low back pain Chronicity: unspecified Back pain laterality: bilateral Sciatica presence: without sciatica Qualified Code(s): M54.5 - Low back pain - Follow up/Referral Referrals: Stephen Wylie MD [Primary Care Provider] - - Patient Discharge Instructions Patient Printed Discharge Instructions: DI for Low Back Pain, DI for Abdominal Pain-Adult Additional Instructions: Your Discharge Instructions: You must call primary care physician within 24 hours to arrange follow-up. Return to the Emergency Department with any new, persistent or worsening symptoms, for fever, chills, SOB, dizziness or any other concerning changes that may occur. Continue Tylenol for your pain every 4 hours as needed. - Post Discharge Activity
[2020-03-29] MEDS ORDERED: ACETAMINOPHEN INJECTION 100 ML IVPB ONE (13:32)
[2020-03-29 14:47] LABS: BASO % 0.9 % (0-2.0); EOS % 2.6 % (0-4.5); HEMATOCRIT 30.9 % (32.4-45.2); HEMOGLOBIN 10.3 GM/dL (10.7-15.3); LYMPH % 34.7 % (8-40); MCH 34.1 pg (25.7-33.7); MCHC 33.3 g/dl (32.0-36.0); MEAN CELL VOLUME 102.4 fl (80-96); MEAN PLT VOLUME 8.2 fl (7.5-11.1); MONO % 10.1 % (3.8-10.2); NEUT % 51.7 % (42.8-82.8); PLATELET COUNT 236 K/MM3 (134-434); RBC 3.01 M/mm3 (3.60-5.2); RDW 13.2 % (11.6-15.6); WHITE BLOOD COUNT 5.5 K/mm3 (4.0-10.0)
[2020-03-29 15:16] LABS: ALBUMIN 3.3 g/dl (3.4-5.0); BILIRUBIN,TOTAL 0.3 mg/dL (0.2-1); BLOOD UREA NITROGEN 24.3 mg/dL (7-18); CALCIUM 8.7 mg/dL (8.5-10.1); CREATININE 1.5 mg/dL (0.55-1.3); POTASSIUM 4.8 mmol/L (3.5-5.1); TOT PROT 6.7 g/dl (6.4-8.2)
[2020-03-29 15:48] LABS: EPI CELLS 23 /uL (0-25.1); HYALINE CASTS 1 /uL (0-3.1); PH,URINE 5.5 (5.0-8.0); URINE APPEARANCE CLEAR; URINE BACTERIA 54 /uL (0-1359); URINE BILIRUBIN NEGATIVE (NEGATIVE); URINE COLOR YELLOW; URINE GLUCOSE (UA) NEGATIVE (NEGATIVE); URINE KETONE NEGATIVE (NEGATIVE); URINE LEUK ESTERASE TRACE (NEGATIVE); URINE NITRITE NEGATIVE (NEGATIVE); URINE PROTEIN NEGATIVE (NEGATIVE); URINE RBC 2 /uL (0-23.9); URINE UROBILINOGEN 0.2 mg/dL (0.2-1.0); URINE WBC 21 /uL (0-25.8)
[2020-03-29 18:10] VITALS: BP 138/60; PULSE 55
== END 2020-03-29 18:44 | disposition home or self-care (01) ==
LOC: JER 12:22
PROC: 3E0333Z Introduction of Anti-inflammatory into Peripheral Vein, Percutaneous Approach (ICD-10-PCS; principal; 2020-03-29)
DX: M54.5 Low back pain (principal); R10.32 Left lower quadrant pain
CPT/HCPCS: 36415; 74176-TC; 80053; 81003; 85025; 87077; 87086; 99285-25; J0131

== ENCOUNTER 2020-05-11 04:49 | Day surgery (SDC) | payer OTHER ==
[2020-05-07 12:33] VITALS: BMI 26.2
[2020-05-11] MEDS ORDERED: MIDAZOLAM HCL 2 MG/2 ML SINGLE DOSE VIAL ONE ×2 (08:46→08:48)
[2020-05-11] MEDS ORDERED: ROPIVACAINE HCL 0.5% 30ML VIAL ONE (08:46)
[2020-05-11] MEDS ORDERED: PROPOFOL 20 ML ONE (09:05)
[2020-05-11] MEDS ORDERED: ceFAZolin SODIUM 1 GM VIAL IVPB ONE (09:35)
[2020-05-11] MEDS ORDERED: LIDOCAINE HCL 1%, 10 MG/ML (20ML VIAL) NR ONE ×2 (09:50)
[2020-05-11] MEDS ORDERED: BUPIVACAINE HCL/PF 0.5% (5 MG/ML) 30 ML VIAL IJ ONE ×2 (09:50)
[2020-05-11] MEDS ORDERED: oxyCODONE HCL 5 MG TABLET PO PRN (10:54)
[2020-05-11] MEDS ORDERED: PROMETHAZINE HCL 25 MG/1 ML VIAL IVPUSH PRN (10:54)
[2020-05-11] MEDS ORDERED: ONDANSETRON 4 MG/2 ML VIAL IVPUSH PRN (10:54)
[2020-05-11] MEDS ORDERED: LACTATED RINGERS SOLUTION 1,000 ML IV SCH (11:00)
[2020-05-11 11:48] VITALS: TEMP 97.5
[2020-05-11] MEDS ORDERED: ACETAMINOPHEN 325 MG TABLET (FP) PO ONE ×2 (14:30→14:45)
[2020-05-11 15:17] VITALS: BP 148/63; PULSE 74
== END 2020-05-11 15:35 | disposition home or self-care (01) ==
LOC: JASU-SURG 04:49
PROVIDERS: ATTEND Orthopaedic Surgery
PROC: 0PSJ04Z Reposition Left Radius with Internal Fixation Device, Open Approach (ICD-10-PCS; principal; 2020-05-11 09:00)
DX: S52.572A Other intraarticular fracture of lower end of left radius, initial encounter for closed fracture (principal); X58.XXXA Exposure to other specified factors, initial encounter; Y93.89 Activity, other specified; Y92.9 Unspecified place or not applicable; Y99.9 Unspecified external cause status
CPT/HCPCS: 25608; C1713; 76000-TC-FY; 94760

== ENCOUNTER 2020-05-15 12:30 | Inpatient (IN) | payer OTHER ==
[2020-05-15 15:04] LABS: BASO % 0.5 % (0-2.0); EOS % 0.7 % (0-4.5); HEMATOCRIT 32.5 % (32.4-45.2); HEMOGLOBIN 10.9 GM/dL (10.7-15.3); MCH 34.6 pg (25.7-33.7); MCHC 33.6 g/dl (32.0-36.0); MEAN PLT VOLUME 7.8 fl (7.5-11.1); MONO % 3.6 % (3.8-10.2); NEUT % 87.2 % (42.8-82.8); PLATELET COUNT 299 K/MM3 (134-434); RBC 3.16 M/mm3 (3.60-5.2); RDW 13.3 % (11.6-15.6); WHITE BLOOD COUNT 10.8 K/mm3 (4.0-10.0)
[2020-05-15 15:08] LABS: INR 0.9 (0.83-1.09); PROTHROMBIN TIME (PATIENT) 11.1 SEC (9.7-13.0)
[2020-05-15 15:10] LABS: ACTIVATED PTT 20.5 SECONDS (25.2-36.5)
[2020-05-15 15:22] LABS: CHLORIDE 103 mmol/L (98-107); POTASSIUM 5.2 mmol/L (3.5-5.1); SODIUM 136 mmol/L (136-145)
[2020-05-15 15:24] LABS: ALBUMIN 3.3 g/dl (3.4-5.0); ANION GAP 6 MMOL/L (8-16); BLOOD UREA NITROGEN 19.1 mg/dL (7-18); CALCIUM 9.2 mg/dL (8.5-10.1); CO2 26 mmol/L (21-32); GLUCOSE,RANDOM 114 mg/dL (74-106)
[2020-05-15 15:27] LABS: SGPT/ALT 26 U/L (13-61)
[2020-05-15 15:28] LABS: CREATININE 1.4 mg/dL (0.55-1.3); SGOT/AST 45 U/L (15-37)
[2020-05-15 15:29] LABS: TOT PROT 7.6 g/dl (6.4-8.2)
[2020-05-15 15:30] LABS: ALK PHOS 113 U/L (45-117)
[2020-05-15] MEDS ORDERED: SODIUM CHLORIDE 0.9% 1000 ML INFUS.BAG IV ONE (16:45)
[2020-05-15] MEDS ORDERED: ALPRAZolam 0.25 MG TABLET PO PRN (19:11)
[2020-05-15] MEDS ORDERED: PANTOPRAZOLE 40 MG TABLET PO SCH (19:30)
[2020-05-15] MEDS ORDERED: PANTOPRAZOLE 40 MG TABLET ONE (20:45)
[2020-05-15 20:54] LABS: PH,URINE 7.5 (5.0-8.0); URINE APPEARANCE CLEAR; URINE BILIRUBIN NEGATIVE (NEGATIVE); URINE COLOR YELLOW; URINE GLUCOSE (UA) NEGATIVE (NEGATIVE); URINE KETONE NEGATIVE (NEGATIVE); URINE LEUK ESTERASE NEGATIVE (NEGATIVE); URINE NITRITE NEGATIVE (NEGATIVE); URINE PROTEIN NEGATIVE (NEGATIVE); URINE UROBILINOGEN 0.2 mg/dL (0.2-1.0)
[2020-05-15] MEDS ORDERED: GABAPENTIN 100 MG CAPSULE PO SCH (22:00)
[2020-05-15] MEDS ORDERED: levETIRAcetam 500 MG TABLET (FP) PO ONE (22:16)
[2020-05-15] MEDS: levETIRAcetam 500 MG TABLET (FP) PO SCH (22:19)
[2020-05-15] MEDS: D5-1/2NS+10 MEQ KCL - 10 MEQ/1,000 ML INFUS.BAG IV SCH (22:37)
[2020-05-16 00:06] LABS: BASO % 0.7 % (0-2.0); HEMATOCRIT 32.3 % (32.4-45.2); HEMOGLOBIN 10.9 GM/dL (10.7-15.3); LYMPH % 22.6 % (8-40); MCH 34.6 pg (25.7-33.7); MCHC 33.8 g/dl (32.0-36.0); MEAN CELL VOLUME 102.4 fl (80-96); MEAN PLT VOLUME 7.8 fl (7.5-11.1); MONO % 7.1 % (3.8-10.2); NEUT % 67.6 % (42.8-82.8); PLATELET COUNT 275 K/MM3 (134-434); RBC 3.15 M/mm3 (3.60-5.2); RDW 13.4 % (11.6-15.6); WHITE BLOOD COUNT 8.5 K/mm3 (4.0-10.0)
[2020-05-16 00:25] LABS: POTASSIUM 4.3 mmol/L (3.5-5.1)
[2020-05-16 00:27] LABS: CALCIUM 8.9 mg/dL (8.5-10.1)
[2020-05-16 00:28] LABS: BLOOD UREA NITROGEN 16.1 mg/dL (7-18)
[2020-05-16 00:31] LABS: CREATININE 1.2 mg/dL (0.55-1.3)
[2020-05-16 00:33] LABS: BILIRUBIN,TOTAL 0.5 mg/dL (0.2-1)
[2020-05-16] MEDS: LEVOTHYROXINE NA 50 MCG TABLET (FP) PO SCH (07:11)
[2020-05-16] MEDS ORDERED: ONDANSETRON 4 MG/2 ML VIAL IVPUSH PRN (08:17)
[2020-05-16] MEDS: DONEPEZIL HCL 10 MG TABLET (FP) PO SCH (09:30)
[2020-05-16] MEDS: levETIRAcetam 500 MG TABLET (FP) PO SCH ×2 (09:34→21:54)
[2020-05-16] MEDS: PANTOPRAZOLE SODIUM 40 MG VIAL IVPUSH SCH (09:35)
[2020-05-16] MEDS: ATORVASTATIN CA 20 MG TABLET (FP) PO SCH (09:35)
[2020-05-16] MEDS: LISINOPRIL 5 MG TABLET PO SCH (09:35)
[2020-05-16] MEDS: CHOLECALCIFEROL (VIT D3) 1,000 UNIT (25 MCG) TABLET PO SCH (09:35)
[2020-05-16] MEDS ORDERED: NABUMETONE 500 MG TABLET PO SCH (10:00)
[2020-05-16] MEDS ORDERED: amLODIPine BESYLATE 5 MG TABLET (FP) PO SCH (10:00)
[2020-05-17] MEDS: D5-1/2NS+10 MEQ KCL - 10 MEQ/1,000 ML INFUS.BAG IV SCH (05:51)
[2020-05-17 07:28] LABS: BASO % 0.3 % (0-2.0); EOS % 1.7 % (0-4.5); HEMOGLOBIN 10.2 GM/dL (10.7-15.3); LYMPH % 17.3 % (8-40); MCH 34.8 pg (25.7-33.7); MCHC 34.1 g/dl (32.0-36.0); MEAN CELL VOLUME 102.2 fl (80-96); MEAN PLT VOLUME 7.7 fl (7.5-11.1); MONO % 7.4 % (3.8-10.2); NEUT % 73.3 % (42.8-82.8); PLATELET COUNT 299 K/MM3 (134-434); RBC 2.94 M/mm3 (3.60-5.2); RDW 13.1 % (11.6-15.6); WHITE BLOOD COUNT 8.9 K/mm3 (4.0-10.0)
[2020-05-17] MEDS: LEVOTHYROXINE NA 50 MCG TABLET (FP) PO SCH (07:58)
[2020-05-17 08:07] LABS: POTASSIUM 4.5 mmol/L (3.5-5.1)
[2020-05-17 08:45] LABS: CREATININE 1.4 mg/dL (0.55-1.3)
[2020-05-17 08:47] LABS: BILIRUBIN,TOTAL 0.6 mg/dL (0.2-1); TOT PROT 6.5 g/dl (6.4-8.2)
[2020-05-17 08:48] LABS: CALCIUM 8.5 mg/dL (8.5-10.1)
[2020-05-17] MEDS: ATORVASTATIN CA 20 MG TABLET (FP) PO SCH (10:26)
[2020-05-17] MEDS: ASPIRIN COATED 81 MG TABLET.EC PO SCH (10:26)
[2020-05-17] MEDS: LISINOPRIL 5 MG TABLET PO SCH (10:26)
[2020-05-17] MEDS: PANTOPRAZOLE SODIUM 40 MG VIAL IVPUSH SCH (10:26)
[2020-05-17] MEDS: DONEPEZIL HCL 10 MG TABLET (FP) PO SCH (10:26)
[2020-05-17] MEDS: levETIRAcetam 500 MG TABLET (FP) PO SCH ×2 (10:27→21:12)
[2020-05-17] MEDS: CHOLECALCIFEROL (VIT D3) 1,000 UNIT (25 MCG) TABLET PO SCH (10:27)
[2020-05-18] MEDS: D5-1/2NS+10 MEQ KCL - 10 MEQ/1,000 ML INFUS.BAG IV SCH (05:30)
[2020-05-18] MEDS: LEVOTHYROXINE NA 50 MCG TABLET (FP) PO SCH (06:45)
[2020-05-18 06:57] LABS: BASO % 0.5 % (0-2.0); EOS % 0.7 % (0-4.5); HEMATOCRIT 30.7 % (32.4-45.2); HEMOGLOBIN 10.4 GM/dL (10.7-15.3); LYMPH % 12.4 % (8-40); MCH 34.7 pg (25.7-33.7); MCHC 33.8 g/dl (32.0-36.0); MEAN CELL VOLUME 102.5 fl (80-96); MEAN PLT VOLUME 8.5 fl (7.5-11.1); MONO % 6.7 % (3.8-10.2); NEUT % 79.7 % (42.8-82.8); WHITE BLOOD COUNT 10.7 K/mm3 (4.0-10.0)
[2020-05-18 07:14] LABS: POTASSIUM 4.3 mmol/L (3.5-5.1)
[2020-05-18 07:23] LABS: BILIRUBIN,TOTAL 0.8 mg/dL (0.2-1)
[2020-05-18 07:24] LABS: BLOOD UREA NITROGEN 12.3 mg/dL (7-18); CREATININE 1.2 mg/dL (0.55-1.3)
[2020-05-18 07:26] LABS: TOT PROT 6.8 g/dl (6.4-8.2)
[2020-05-18] MEDS ORDERED: IRON SUCROSE INJECTION 200 MG in SODIUM CHLORIDE 90 ML IVPB ONE (09:00)
[2020-05-18] MEDS: ATORVASTATIN CA 20 MG TABLET (FP) PO SCH (09:43)
[2020-05-18] MEDS: ASPIRIN COATED 81 MG TABLET.EC PO SCH (09:43)
[2020-05-18] MEDS: LISINOPRIL 5 MG TABLET PO SCH (09:43)
[2020-05-18] MEDS: levETIRAcetam 500 MG TABLET (FP) PO SCH ×2 (09:43→21:52)
[2020-05-18] MEDS: CHOLECALCIFEROL (VIT D3) 1,000 UNIT (25 MCG) TABLET PO SCH (09:43)
[2020-05-18] MEDS: PANTOPRAZOLE SODIUM 40 MG VIAL IVPUSH SCH (09:43)
[2020-05-18] MEDS: DONEPEZIL HCL 10 MG TABLET (FP) PO SCH (09:43)
[2020-05-18 10:48] LABS: PLATELET ESTIMATE NORMAL
[2020-05-18 10:49] LABS: PLATELET COUNT 287 K/MM3 (134-434)
[2020-05-18] MEDS: ENOXAPARIN NA (PORCINE) 40 MG/0.4 ML DISP.SYRIN SQ SCH (11:03)
[2020-05-18] MEDS: ACETAMINOPHEN 325 MG TABLET (FP) PO PRN ×3 (11:03→21:54)
[2020-05-18 14:40] VITALS: BMI 25.2
[2020-05-18] MEDS: POLYETHYLENE GLYCOL 3350 119 GM BTL PO SCH (22:02)
[2020-05-19] MEDS: D5-1/2NS+10 MEQ KCL - 10 MEQ/1,000 ML INFUS.BAG IV SCH (00:01)
[2020-05-19] MEDS: LEVOTHYROXINE NA 50 MCG TABLET (FP) PO SCH (06:13)
[2020-05-19 07:40] LABS: BASO % 0.6 % (0-2.0); EOS % 0.5 % (0-4.5); HEMATOCRIT 32.1 % (32.4-45.2); HEMOGLOBIN 10.8 GM/dL (10.7-15.3); LYMPH % 19.6 % (8-40); MCH 34.4 pg (25.7-33.7); MCHC 33.7 g/dl (32.0-36.0); MEAN PLT VOLUME 7.9 fl (7.5-11.1); MONO % 9.9 % (3.8-10.2); NEUT % 69.4 % (42.8-82.8); PLATELET COUNT 319 K/MM3 (134-434); RBC 3.15 M/mm3 (3.60-5.2); RDW 12.8 % (11.6-15.6); WHITE BLOOD COUNT 8.5 K/mm3 (4.0-10.0)
[2020-05-19] MEDS: ENOXAPARIN NA (PORCINE) 40 MG/0.4 ML DISP.SYRIN SQ SCH (10:41)
[2020-05-19] MEDS: CHOLECALCIFEROL (VIT D3) 1,000 UNIT (25 MCG) TABLET PO SCH (10:42)
[2020-05-19] MEDS: LISINOPRIL 5 MG TABLET PO SCH (10:42)
[2020-05-19] MEDS: POLYETHYLENE GLYCOL 3350 119 GM BTL PO SCH (10:42)
[2020-05-19] MEDS: levETIRAcetam 500 MG TABLET (FP) PO SCH (10:42)
[2020-05-19] MEDS: ATORVASTATIN CA 20 MG TABLET (FP) PO SCH (10:42)
[2020-05-19] MEDS: PANTOPRAZOLE SODIUM 40 MG VIAL IVPUSH SCH (10:42)
[2020-05-19] MEDS: DONEPEZIL HCL 10 MG TABLET (FP) PO SCH (10:42)
[2020-05-19 15:42] VITALS: BP 148/53; PULSE 66; TEMP 98.4
[2020-05-19] MEDS ORDERED: levETIRAcetam 500 MG TABLET (FP) PO SCH (22:00)
[2020-05-19] MEDS ORDERED: MIRTAZAPINE 15 MG TABLET (FP) PO SCH ×2 (22:00)
[2020-05-19] MEDS ORDERED: ATORVASTATIN CA 20 MG TABLET (FP) PO SCH (22:00)
[2020-05-20] MEDS ORDERED: DONEPEZIL HCL 10 MG TABLET (FP) PO SCH (10:00)
[2020-05-20] MEDS ORDERED: LISINOPRIL 5 MG TABLET PO SCH (10:00)
[2020-05-20] MEDS ORDERED: PANTOPRAZOLE 40 MG TABLET PO SCH (10:00)
== END 2020-05-19 16:22 | disposition home health service (06) | DRG 57 ==
LOC: JER 12:30 → JERBED 16:52 → J4W 05-16 03:18 → OBSVTOIN 05-19 09:16
PROVIDERS: ADMIT Internal Medicine; ATTEND Internal Medicine
DX: G20 Parkinson's disease (principal); R55 Syncope and collapse; W19.XXXA Unspecified fall, initial encounter; R63.0 Anorexia; R42 Dizziness and giddiness; F03.90 Unspecified dementia, unspecified severity, without behavioral disturbance, psychotic disturbance, mood disturbance, and anxiety; E03.9 Hypothyroidism, unspecified; I10 Essential (primary) hypertension; E78.5 Hyperlipidemia, unspecified; R11.2 Nausea with vomiting, unspecified
CPT/HCPCS: 36415; 70450-TC; 71045-TC-FY; 72125-TC; 74176-TC; 80053; 81003; 82550; 82607; 82728; 82962; 83540; 83550; 84443; 84484; 85025; 85610; 85730; 86780; 87086; 87186; 93005; 93010; 93306-TC; 97116-GP; 97162-GP; 99285-25; C9803; G0378; J1756; U0003

== ENCOUNTER 2020-07-14 20:49 | Inpatient (IN) | payer OTHER ==
[2020-07-14 22:50] LABS: BASO % 0.8 % (0-2.0); EOS % 0.2 % (0-4.5); HEMOGLOBIN 10.9 GM/dL (10.7-15.3); LYMPH % 12.3 % (8-40); MCH 34.9 pg (25.7-33.7); MCHC 34.1 g/dl (32.0-36.0); MEAN CELL VOLUME 102.2 fl (80-96); MEAN PLT VOLUME 8.4 fl (7.5-11.1); NEUT % 80.7 % (42.8-82.8); PLATELET COUNT 242 K/MM3 (134-434); RBC 3.13 M/mm3 (3.60-5.2); RDW 12.8 % (11.6-15.6); WHITE BLOOD COUNT 6.1 K/mm3 (4.0-10.0)
[2020-07-14 23:21] LABS: ALBUMIN 3.5 g/dl (3.4-5.0)
[2020-07-14 23:22] LABS: BLOOD UREA NITROGEN 21.9 mg/dL (7-18)
[2020-07-14 23:25] LABS: CREATININE 1.4 mg/dL (0.55-1.3)
[2020-07-14 23:26] LABS: BILIRUBIN,TOTAL 0.6 mg/dL (0.2-1); TOT PROT 7.4 g/dl (6.4-8.2)
[2020-07-14 23:31] LABS: POTASSIUM 6.4 mmol/L (3.5-5.1)
[2020-07-15 00:50] LABS: PH,URINE 6.5 (5.0-8.0); URINE APPEARANCE Clear; URINE BILIRUBIN Negative (NEGATIVE); URINE COLOR Yellow; URINE GLUCOSE (UA) Negative (NEGATIVE); URINE KETONE Negative (NEGATIVE); URINE LEUK ESTERASE Negative (NEGATIVE); URINE NITRITE Negative (NEGATIVE); URINE PROTEIN Negative (NEGATIVE); URINE UROBILINOGEN 0.2 mg/dL (0.2-1.0)
[2020-07-15 02:14] LABS: POTASSIUM 4.3 mmol/L (3.5-5.1)
[2020-07-15 02:16] LABS: BLOOD UREA NITROGEN 21.4 mg/dL (7-18)
[2020-07-15 02:19] LABS: CREATININE 1.3 mg/dL (0.55-1.3)
[2020-07-15 02:50] LABS: EPI CELLS 9 /uL (0-25.1); HYALINE CASTS 0 /uL (0-3.1); URINE BACTERIA 63 /uL (0-1359); URINE RBC 5 /uL (0-23.9); URINE WBC 14 /uL (0-25.8)
[2020-07-15] MEDS: SODIUM CHLORIDE 1,000 ML IV SCH (07:21)
[2020-07-15 07:54] LABS: HEMATOCRIT 32.6 % (32.4-45.2); HEMOGLOBIN 11.1 GM/dL (10.7-15.3); MCH 34.9 pg (25.7-33.7); MEAN CELL VOLUME 102.6 fl (80-96); MEAN PLT VOLUME 8.9 fl (7.5-11.1); PLATELET COUNT 249 K/MM3 (134-434); RBC 3.18 M/mm3 (3.60-5.2); RDW 12.7 % (11.6-15.6); WHITE BLOOD COUNT 6.7 K/mm3 (4.0-10.0)
[2020-07-15 08:07] LABS: POTASSIUM 4.3 mmol/L (3.5-5.1)
[2020-07-15 08:09] LABS: CALCIUM 9.2 mg/dL (8.5-10.1)
[2020-07-15 08:10] LABS: BLOOD UREA NITROGEN 20.5 mg/dL (7-18)
[2020-07-15 08:13] LABS: CREATININE 1.3 mg/dL (0.55-1.3)
[2020-07-15] MEDS ORDERED: levETIRAcetam 500 MG TABLET (FP) PO SCH (10:00)
[2020-07-15] MEDS: LEVOTHYROXINE NA 50 MCG TABLET (FP) PO SCH (11:13)
[2020-07-15] MEDS ORDERED: levETIRAcetam 500 MG TABLET (FP) PO ONE (11:32)
[2020-07-15] MEDS ORDERED: ACETAMINOPHEN 325 MG TABLET (FP) ONE (11:32)
[2020-07-15] MEDS ORDERED: ENOXAPARIN NA (PORCINE) 40 MG/0.4 ML DISP.SYRIN SQ ONE (11:32)
[2020-07-15] MEDS: CALCIUM 500MG/VIT-D 200 UNITS COMBO TABLET (FP) PO SCH ×2 (11:46→22:24)
[2020-07-15] MEDS: ENOXAPARIN NA (PORCINE) 40 MG/0.4 ML DISP.SYRIN SQ SCH (11:46)
[2020-07-15] MEDS: levETIRAcetam 500 MG TABLET (FP) PO SCH (22:24)
[2020-07-15] MEDS: ATORVASTATIN CA 20 MG TABLET (FP) PO SCH (22:24)
[2020-07-16] MEDS: ACETAMINOPHEN 325 MG TABLET (FP) PO PRN (00:10)
[2020-07-16 00:59] VITALS: BMI 24.4
[2020-07-16] MEDS: SODIUM CHLORIDE 1,000 ML IV SCH (06:42)
[2020-07-16] MEDS: LEVOTHYROXINE NA 50 MCG TABLET (FP) PO SCH (06:43)
[2020-07-16] MEDS ORDERED: PT OWN MED DRAWER 7, Y5N ONE (09:39)
[2020-07-16] MEDS: ENOXAPARIN NA (PORCINE) 40 MG/0.4 ML DISP.SYRIN SQ SCH (09:44)
[2020-07-16] MEDS: levETIRAcetam 500 MG TABLET (FP) PO SCH ×2 (09:45→21:54)
[2020-07-16] MEDS: CALCIUM 500MG/VIT-D 200 UNITS COMBO TABLET (FP) PO SCH ×2 (09:45→21:54)
[2020-07-16 09:59] LABS: CHOLESTEROL 130 mg/dL (50-200); TRIGLYCERIDES 86 mg/dL (0-150)
[2020-07-16 10:00] LABS: LDL CHOLESTEROL (ONLY SJRH) 66 mg/dL (5-100)
[2020-07-16 10:01] LABS: HDL CHOLESTEROL 53 mg/dL (40-60)
[2020-07-16 10:02] LABS: N-TERMINAL BNP 944.7 pg/ml (5-450)
[2020-07-16] MEDS: ATORVASTATIN CA 20 MG TABLET (FP) PO SCH (21:55)
[2020-07-17] MEDS: SODIUM CHLORIDE 1,000 ML IV SCH (05:28)
[2020-07-17] MEDS: LEVOTHYROXINE NA 50 MCG TABLET (FP) PO SCH (06:08)
[2020-07-17] MEDS: levETIRAcetam 500 MG TABLET (FP) PO SCH ×2 (09:35→21:22)
[2020-07-17] MEDS: ENOXAPARIN NA (PORCINE) 40 MG/0.4 ML DISP.SYRIN SQ SCH (09:35)
[2020-07-17] MEDS: CALCIUM 500MG/VIT-D 200 UNITS COMBO TABLET (FP) PO SCH ×2 (09:35→21:22)
[2020-07-17] MEDS: ACETAMINOPHEN 325 MG TABLET (FP) PO PRN (20:34)
[2020-07-17] MEDS: ATORVASTATIN CA 20 MG TABLET (FP) PO SCH (21:22)
[2020-07-18] MEDS: ACETAMINOPHEN 325 MG TABLET (FP) PO PRN ×2 (02:34→18:14)
[2020-07-18] MEDS: LEVOTHYROXINE NA 50 MCG TABLET (FP) PO SCH (06:57)
[2020-07-18] MEDS: CALCIUM 500MG/VIT-D 200 UNITS COMBO TABLET (FP) PO SCH ×2 (09:55→22:09)
[2020-07-18] MEDS: levETIRAcetam 500 MG TABLET (FP) PO SCH ×2 (09:55→22:09)
[2020-07-18] MEDS: ENOXAPARIN NA (PORCINE) 40 MG/0.4 ML DISP.SYRIN SQ SCH (09:55)
[2020-07-18] MEDS: ATORVASTATIN CA 20 MG TABLET (FP) PO SCH (22:09)
[2020-07-19] MEDS: ACETAMINOPHEN 325 MG TABLET (FP) PO PRN (00:17)
[2020-07-19] MEDS: LEVOTHYROXINE NA 50 MCG TABLET (FP) PO SCH (06:03)
[2020-07-19] MEDS: ENOXAPARIN NA (PORCINE) 40 MG/0.4 ML DISP.SYRIN SQ SCH (09:35)
[2020-07-19] MEDS: CALCIUM 500MG/VIT-D 200 UNITS COMBO TABLET (FP) PO SCH (09:35)
[2020-07-19] MEDS: levETIRAcetam 500 MG TABLET (FP) PO SCH (09:35)
[2020-07-19 14:43] VITALS: BP 140/61; PULSE 55; TEMP 97.7
== END 2020-07-19 15:13 | disposition home health service (06) | DRG 57 ==
LOC: JER 20:49 → JERBED 07-15 02:39 → OBSVTOIN 07-15 03:35 → J6S 07-15 18:10
PROVIDERS: ADMIT Hospitalist; ATTEND Internal Medicine
DX: G31.83 Neurocognitive disorder with Lewy bodies (principal); E87.1 Hypo-osmolality and hyponatremia; N17.9 Acute kidney failure, unspecified; G40.909 Epilepsy, unspecified, not intractable, without status epilepticus; E03.9 Hypothyroidism, unspecified; I10 Essential (primary) hypertension; E78.5 Hyperlipidemia, unspecified; F02.80 Dementia in other diseases classified elsewhere, unspecified severity, without behavioral disturbance, psychotic disturbance, mood disturbance, and anxiety; Z20.822 Contact with and (suspected) exposure to COVID-19
CPT/HCPCS: 36415; 70450-TC; 80048; 80053; 80061; 80177; 81003; 82550; 83721; 83880; 84443; 84484; 85025; 85027; 85379; 86140; 87086; 93005; 93010; 93225; 93226; 93306-TC; 93880-TC; 97116-GP; 97161-GP; 99285-25; C9803; G0378; U0003

== ENCOUNTER 2021-01-08 18:44 | Emergency (ER) | payer OTHER ==
[2021-01-08 18:50] VITALS: TEMP 98.3; BMI 23.4
[2021-01-08 20:16] LABS: PH,URINE 6.5 (5.0-8.0); URINE APPEARANCE CLEAR; URINE BILIRUBIN NEGATIVE (NEGATIVE); URINE COLOR YELLOW; URINE GLUCOSE (UA) NEGATIVE (NEGATIVE); URINE KETONE NEGATIVE (NEGATIVE); URINE LEUK ESTERASE NEGATIVE (NEGATIVE); URINE NITRITE NEGATIVE (NEGATIVE); URINE PROTEIN NEGATIVE (NEGATIVE); URINE UROBILINOGEN 0.2 mg/dL (0.2-1.0)
[2021-01-08 20:21] LABS: BASO % 1.2 % (0-2.0); EOS % 4.3 % (0-4.5); HEMATOCRIT 29.9 % (32.4-45.2); HEMOGLOBIN 10.3 GM/dL (10.7-15.3); LYMPH % 23.5 % (8-40); MCH 34.7 pg (25.7-33.7); MCHC 34.5 g/dl (32.0-36.0); MEAN CELL VOLUME 100.5 fl (80-96); MEAN PLT VOLUME 8.4 fl (7.5-11.1); MONO % 9.7 % (3.8-10.2); NEUT % 61.3 % (42.8-82.8); PLATELET COUNT 241 10^3/uL (134-434); RBC 2.97 M/mm3 (3.60-5.2); RDW 12.9 % (11.6-15.6); WHITE BLOOD COUNT 6.8 K/mm3 (4.0-10.0)
[2021-01-08 20:36] LABS: ALBUMIN 3.4 g/dl (3.4-5.0); BLOOD UREA NITROGEN 18.5 mg/dL (7-18)
[2021-01-08 20:40] LABS: CREATININE 1.7 mg/dL (0.55-1.3)
[2021-01-08 20:41] LABS: BILIRUBIN,TOTAL 0.4 mg/dL (0.2-1); TOT PROT 7.1 g/dl (6.4-8.2)
[2021-01-08] MEDS ORDERED: SODIUM CHLORIDE 0.9% 500 ML INFUS.BAG IV ONE (20:47)
[2021-01-08 21:48] VITALS: BP 127/59; PULSE 62
== END 2021-01-08 23:11 | disposition home or self-care (01) ==
LOC: JER 18:44
DX: R30.0 Dysuria (principal); H92.03 Otalgia, bilateral
CPT/HCPCS: 36415; 70450-TC; 71045-TC-FY; 80053; 81003; 85025; 87086; 99285-25

== ENCOUNTER 2021-02-17 20:26 | Inpatient (IN) | payer OTHER ==
[2021-02-17] MEDS ORDERED: ONDANSETRON 4 MG/2 ML VIAL IVPUSH ONE (20:48)
[2021-02-17] MEDS ORDERED: SODIUM CHLORIDE 0.9% 500 ML INFUS.BAG IV ONE (20:48)
[2021-02-17] MEDS ORDERED: ONDANSETRON 4 MG/2 ML VIAL ONE (21:26)
[2021-02-17] MEDS ORDERED: FAMOTIDINE 20 MG/50 ML IVPB 20 MG/50 ML MG IVPB ONE (21:44)
[2021-02-17 22:19] LABS: HEMATOCRIT 34.6 % (32.4-45.2); HEMOGLOBIN 11.8 GM/dL (10.7-15.3); MCH 34.3 pg (25.7-33.7); MCHC 34.2 g/dl (32.0-36.0); MEAN CELL VOLUME 100.3 fl (80-96); PLATELET COUNT 280 10^3/uL (134-434); RBC 3.45 M/mm3 (3.60-5.2); RDW 13.1 % (11.6-15.6); WHITE BLOOD COUNT 20.5 K/mm3 (4.0-10.0)
[2021-02-17 22:22] LABS: ADD RBC MORPHOLOGY YES
[2021-02-17 22:39] LABS: CHLORIDE 92 mmol/L (98-107); SODIUM 128 mmol/L (136-145)
[2021-02-17 22:41] LABS: ALBUMIN 3.9 g/dl (3.4-5.0); CALCIUM 11.1 mg/dL (8.5-10.1)
[2021-02-17 22:42] LABS: ANION GAP 13 MMOL/L (8-16); BLOOD UREA NITROGEN 20.7 mg/dL (7-18); CO2 23 mmol/L (21-32); GLUCOSE,RANDOM 162 mg/dL (74-106)
[2021-02-17 22:45] LABS: CREATININE 2.1 mg/dL (0.55-1.3); SGOT/AST 17 U/L (15-37); SGPT/ALT 7 U/L (13-61)
[2021-02-17 22:46] LABS: BILIRUBIN,TOTAL 0.7 mg/dL (0.2-1); TOT PROT 7.6 g/dl (6.4-8.2)
[2021-02-17 22:47] LABS: ALK PHOS 105 U/L (45-117)
[2021-02-17 22:48] LABS: LACTIC ACID 2.4 mmol/L (0.4-2.0)
[2021-02-17 23:08] LABS: ANISOCYTOSIS 0; MACROCYTOSIS 1+; PLATELET ESTIMATE NORMAL
[2021-02-18] MEDS ORDERED: SODIUM CHLORIDE 0.9% 1000 ML INFUS.BAG IV ONE (00:06)
[2021-02-18] MEDS ORDERED: ACETAMINOPHEN 1000 MG/100 ML VIAL (NON FORMULARY) IVPB ONE (00:20)
[2021-02-18] MEDS ORDERED: ACETAMINOPHEN INJECTION 100 ML IVPB ONE ×3 (00:27→07:10)
[2021-02-18] MEDS ORDERED: FAMOTIDINE 20 MG/50 ML IVPB 20 MG/50 ML MG IVPB ONE (00:28)
[2021-02-18 00:45] LABS: EPI CELLS 2 /uL (0-25.1); HYALINE CASTS 1 /uL (0-3.1); URINE APPEARANCE CLOUDY; URINE BACTERIA 4198 /uL (0-1359); URINE BILIRUBIN NEGATIVE (NEGATIVE); URINE COLOR YELLOW; URINE GLUCOSE (UA) NEGATIVE (NEGATIVE); URINE KETONE NEGATIVE (NEGATIVE); URINE LEUK ESTERASE 3+ (NEGATIVE); URINE NITRITE NEGATIVE (NEGATIVE); URINE PROTEIN NEGATIVE (NEGATIVE); URINE RBC 28 /uL (0-23.9); URINE UROBILINOGEN 0.2 mg/dL (0.2-1.0); URINE WBC 556 /uL (0-25.8)
[2021-02-18] MEDS ORDERED: CEFTRIAXONE 1,000 MG in DEXTROSE 5%-WATER - 50 ML IVPB ONE (00:55)
[2021-02-18] MEDS ORDERED: CEFTRIAXONE 1 GM/50 ML BAG ONE (01:40)
[2021-02-18 03:45] LABS: LACTIC ACID 4.2 mmol/L (0.4-2.0)
[2021-02-18] MEDS ORDERED: ONDANSETRON 4 MG/2 ML VIAL IVPUSH PRN (04:29)
[2021-02-18] MEDS ORDERED: SODIUM CHLORIDE 1,000 ML IV STA (04:37)
[2021-02-18] MEDS ORDERED: SODIUM CHLORIDE 1,000 ML IV SCH ×2 (04:45→11:47)
[2021-02-18] MEDS: ACETAMINOPHEN 1000 MG/100 ML VIAL (NON FORMULARY) IVPB PRN ×2 (05:30→23:10)
[2021-02-18 06:03] LABS: LACTIC ACID 5.5 mmol/L (0.4-2.0)
[2021-02-18] MEDS ORDERED: ONDANSETRON 4 MG/2 ML VIAL ONE (07:26)
[2021-02-18 08:09] LABS: HEMATOCRIT 33.2 % (32.4-45.2); HEMOGLOBIN 11.3 GM/dL (10.7-15.3); MCH 34.8 pg (25.7-33.7); MCHC 33.8 g/dl (32.0-36.0); MEAN CELL VOLUME 102.9 fl (80-96); MEAN PLT VOLUME 8.1 fl (7.5-11.1); PLATELET COUNT 205 10^3/uL (134-434); RBC 3.23 M/mm3 (3.60-5.2); RDW 13.1 % (11.6-15.6); WHITE BLOOD COUNT 6.3 K/mm3 (4.0-10.0)
[2021-02-18 08:21] LABS: BLOOD UREA NITROGEN 29.5 mg/dL (7-18)
[2021-02-18 08:25] LABS: BILIRUBIN,TOTAL 0.8 mg/dL (0.2-1)
[2021-02-18 08:41] LABS: ALBUMIN 2.4 g/dl (3.4-5.0); CALCIUM 8.8 mg/dL (8.5-10.1); TOT PROT 4.9 g/dl (6.4-8.2)
[2021-02-18 09:19] LABS: ANISOCYTOSIS 1+; MACROCYTOSIS 1+; PLATELET ESTIMATE NORMAL
[2021-02-18] MEDS: levETIRAcetam 500 MG/5 ML INJECTION VIAL IVPB SCH ×2 (09:50→21:00)
[2021-02-18] MEDS ORDERED: LEVOTHYROXINE SODIUM 100 MCG VIAL IVPUSH SCH (10:00)
[2021-02-18] MEDS ORDERED: morphine CARPU-JECT 2 MG/1 ML DISP.SYRIN IVPUSH PRN (11:45)
[2021-02-18] MEDS ORDERED: SODIUM CHLORIDE 0.9% 500 ML INFUS.BAG IV ONE (11:46)
[2021-02-18] MEDS ORDERED: LORazepam 2 MG/ML SDV VIAL IVPUSH PRN (12:12)
[2021-02-18 15:06] LABS: BASO % 0.2 % (0-2.0); EOS % 0.1 % (0-4.5); HEMATOCRIT 30.3 % (32.4-45.2); HEMOGLOBIN 10.1 GM/dL (10.7-15.3); LYMPH % 3.2 % (8-40); MCH 34.8 pg (25.7-33.7); MCHC 33.3 g/dl (32.0-36.0); MEAN CELL VOLUME 104.4 fl (80-96); MONO % 4.1 % (3.8-10.2); NEUT % 92.4 % (42.8-82.8); PLATELET COUNT 177 10^3/uL (134-434); RBC 2.91 M/mm3 (3.60-5.2); RDW 13.4 % (11.6-15.6); WHITE BLOOD COUNT 5.8 K/mm3 (4.0-10.0)
[2021-02-18 15:15] LABS: INR 1.08 (0.83-1.09); PROTHROMBIN TIME (PATIENT) 13.3 SEC (9.7-13.0)
[2021-02-18 15:19] VITALS: BMI 23.8
[2021-02-18 15:31] LABS: ANISOCYTOSIS 1+; MACROCYTOSIS 1+; PLATELET ESTIMATE NORMAL
[2021-02-18] MEDS: MORPHINE SULFATE 2 MG/ML VIAL IVPUSH PRN (16:41)
[2021-02-18 17:26] LABS: CALCIUM 8.6 mg/dL (8.5-10.1)
[2021-02-18 17:30] LABS: CREATININE 2.2 mg/dL (0.55-1.3)
[2021-02-18 17:33] LABS: LACTIC ACID 5.4 mmol/L (0.4-2.0)
[2021-02-18 21:19] LABS: LACTIC ACID 4.9 mmol/L (0.4-2.0)
[2021-02-18] MEDS ORDERED: FUROSEMIDE 40 MG/4 ML INJECTABLE VIAL IVPUSH ONE (23:13)
[2021-02-18 23:17] LABS: ARTERIAL BLOOD GAS BASE EXCESS -17.5 mmol/L (-2-2); ARTERIAL BLOOD GAS PO2 86.5 mmHg (80-100)
[2021-02-18 23:20] LABS: ALLENS TEST POSITIVE
[2021-02-18 23:28] LABS: ARTERIAL BLOOD GAS pH 7.157 (7.350-7.450)
[2021-02-19] MEDS ORDERED: LACTATED RINGERS SOLUTION 1000 ML INFUS.BAG IV ONE (00:14)
[2021-02-19] MEDS: MORPHINE SULFATE 2 MG/ML VIAL IVPUSH PRN (01:56)
[2021-02-19] MEDS ORDERED: MORPHINE SULFATE 2 MG/ML VIAL IVPUSH PRN (02:39)
[2021-02-19] MEDS ORDERED: SODIUM CHLORIDE 500 ML IV STA (04:26)
[2021-02-19 06:31] VITALS: BP 86/48; PULSE 80; TEMP 97.5
[2021-02-19 07:05] LABS: VENOUS BASE EXCESS -19.5 mmol/L (-2-2); VENOUS O2 SATURATION 96.9 % (70-80); VENOUS PCO2 36.7 mmHg (38-52)
[2021-02-19 07:08] LABS: VENOUS PH 7.049 (7.310-7.410)
[2021-02-19 07:18] LABS: CHLORIDE 112 mmol/L (98-107); SODIUM 138 mmol/L (136-145)
[2021-02-19 07:19] LABS: CALCIUM 7.9 mg/dL (8.5-10.1)
[2021-02-19 07:20] LABS: ANION GAP 13 MMOL/L (8-16); BLOOD UREA NITROGEN 39.9 mg/dL (7-18); CO2 12 mmol/L (21-32)
[2021-02-19 07:23] LABS: CREATININE 2.2 mg/dL (0.55-1.3)
[2021-02-19 07:25] LABS: GLUCOSE,RANDOM 41 mg/dL (74-106)
[2021-02-19] MEDS ORDERED: DEXTROSE 50%-WATER - 25 GM/50 ML VIAL IVPUSH ONE (07:26)
[2021-02-19] MEDS ORDERED: DEXTROSE 50%-WATER 25 GM/50 ML DISP.SYRIN ONE (07:29)
[2021-02-19] MEDS ORDERED: SODIUM CHLORIDE 250 ML IV STA (07:37)
[2021-02-19 07:38] LABS: HEMATOCRIT 30.8 % (32.4-45.2); HEMOGLOBIN 10.2 GM/dL (10.7-15.3); MCH 35.1 pg (25.7-33.7); MCHC 33.1 g/dl (32.0-36.0); MEAN PLT VOLUME 8.6 fl (7.5-11.1); PLATELET COUNT 135 10^3/uL (134-434); RDW 13.8 % (11.6-15.6)
[2021-02-19 07:41] LABS: LACTIC ACID 4.1 mmol/L (0.4-2.0)
[2021-02-19] MEDS ORDERED: EPINEPHrine 1:10,000 (P-F SYR) 1 MG/10 ML DISP.SYRIN ONE (08:01)
[2021-02-19 08:42] LABS: ANISOCYTOSIS 2+; MACROCYTOSIS 2+; OVALOCYTE 1+; PLATELET ESTIMATE DECREASED
[2021-02-19] MEDS ORDERED: CEFTRIAXONE 1 GM in DEXTROSE 5%-WATER - 50 ML IVPB SCH (10:00)
[2021-02-19] MEDS ORDERED: MUPIROCIN 2% TOPICAL OINTMENT FOR DECOLONIZATION NS SCH (10:00)
[2021-02-19] MEDS ORDERED: CHLORHEXIDINE GLUCONATE 4% CLEANSER FOR DECOLONIZATION TP SCH (22:00)
== END 2021-02-19 10:00 | disposition expired | DRG 393 ==
LOC: JER 20:26 → JERBED 02-18 01:22 → J6S 02-18 09:06 → JICU 02-19 01:44
PROVIDERS: ADMIT Internal Medicine; ATTEND Internal Medicine
PROC: 0BH17EZ Insertion of Endotracheal Airway into Trachea, Via Natural or Artificial Opening (ICD-10-PCS; principal; 2021-02-19)
DX: K55.9 Vascular disorder of intestine, unspecified (principal); A41.89 Other specified sepsis; J96.01 Acute respiratory failure with hypoxia; N17.9 Acute kidney failure, unspecified; E87.2 Acidosis; E87.1 Hypo-osmolality and hyponatremia; N39.0 Urinary tract infection, site not specified; J90 Pleural effusion, not elsewhere classified; E03.9 Hypothyroidism, unspecified; E78.5 Hyperlipidemia, unspecified; G20 Parkinson's disease; F02.80 Dementia in other diseases classified elsewhere, unspecified severity, without behavioral disturbance, psychotic disturbance, mood disturbance, and anxiety; G40.909 Epilepsy, unspecified, not intractable, without status epilepticus; F41.8 Other specified anxiety disorders; K21.9 Gastro-esophageal reflux disease without esophagitis; K52.9 Noninfective gastroenteritis and colitis, unspecified; D64.9 Anemia, unspecified; E83.52 Hypercalcemia; D72.829 Elevated white blood cell count, unspecified; I12.9 Hypertensive chronic kidney disease with stage 1 through stage 4 chronic kidney disease, or unspecified chronic kidney disease; N18.9 Chronic kidney disease, unspecified; R33.9 Retention of urine, unspecified; N35.92 Unspecified urethral stricture, female; I46.9 Cardiac arrest, cause unspecified
CPT/HCPCS: 36415; 36600; 71045-TC-FY; 74176-TC; 76775-TC; 80048; 80053; 80177; 81003; 82436; 82550; 82803; 83605; 83930; 83935; 84133; 84300; 84443; 84484; 85025; 85610; 86850; 86900; 86901; 87040; 87086; 87186; 93005; 93010; 99285-25; C9803; J0131; U0003; U0005